=== PATIENT | female | born 1950 ===

== ENCOUNTER 2021-09-01 13:58 | Inpatient (IN) | payer OTHER ==
--- NOTE | 2021-09-01 19:21 | R.PREADM ---
PRE-ADMISSION SCREENING FORM SCREENING DATE AND TIME 09/01/2021 11:27 (CDT) ANTICIPATED REHAB ADMISSION DATE 09/03/2021 REFERRING FACILITY [facility] REFERRAL DATE AND TIME 09/01/2021 11:27 (CDT) REFERRAL ROOM# J530 ACUTE ADMIT DATE 08/26/2021 Previous Rehabilitation(s): No. ACUTE VARNISHER PLASTICOATER/DC CAGE CASHIER JUAN ATTENDING PHYSICIAN JAVIER BALL MD REFERRING PHYSICIAN JAVIER BALL MD REHAB FACILITY [facility] CLINICAL LIAISON Zion Aguilar PHYSICIAN REVIEWER Dr. Kirk Kinsey M.D. MR# [id number] NAME Kenya Peace ADDRESS [address] [facility] PHONE ( ZIP [address] DATE OF 1950 AGE 70 SSN# [id number] GENDER female MARITAL STATUS PREF. LANGUAGE (IF NON-SLOVENIAN) Latvian ADMIT FROM 02 - [facility] PRE-HOSPITAL LIVING SETTING 01 - Home (private home/apt. board/care, assisted living, fpc, transitional living) HOME TYPE AND DETAILS Type of home: single family house # of levels in the residence: 1 # of steps within the residence: 0 # of steps to enter the residence: 0 PRE-HOSPITAL LIVING WITH Alone FAMILY SUPPORT No PRIMARY FAMILY CONTACT NAME Kenya Peace PRIMARY FAMILY CONTACT PHONE PRIMARY FAMILY CONTACT RELATIONSHIP SELF PHONE PRIMARY FAMILY CONTACT ON ADM.? no IS PRIMARY FAMILY CONTACT AUTH. REP.? no 1ST EMERGENCY CONTACT Kenay Peace 1ST CONTACT PHONE 1ST CONTACT RELATIONSHIP SELF PHONE 1ST CONTACT ON ADM. no IS 1ST CONTACT AUTH. REP.? no PHONE 2ND CONTACT ON ADM.? no PATIENT EMPLOYMENT STATUS Retired (for age) PATIENT EMPLOYER No Employer PAYOR INFORMATION: 1ST PAYOR NAME [employer] 1ST PAYOR PHONE [phone] 1ST PAYOR INJURY/ILLNESS DUE TO ACCIDENT? No ANOTHER CONSTITUTION PARTY RESPONSIBLE? No PRIMARY REHAB/ACUTE DIAGNOSIS: Traumatic subdural hemorrhage with loss of consciousness of unspecified duration, initial encounter ( S06.5X9A) Acute traumatic subdural subarachnoid hemorrhage ONSET DATE 08/26/2021 REHAB IMPAIRMENT CATEGORY (BOB): 02 Traumatic brain injury (TBI) MEETS 60% rule PRIMARY DIAGNOSIS-RELATED SURGERIES: N/A COMORBID REHAB/ACUTE DIAGNOSES: - Non-Tiered Dysphagia, unspecified (R13.10) Fracture of unspecified part of right clavicle (S42.001) Disorientation, unspecified (R41.0) Essential (primary) hypertension (I10) Hyperlipidemia, unspecified (E78.5) Coronary Artery Disease Traumatic cerebral edema (S06.1) buckle sacral fx INTERVENTIONS: - WOUNDS Nursing will assess skin daily using assessment tool and will place on Skin Breakdown Precautions as Indicated per protocol - Hyperlipidemia Administer medications as per MD - Dysphagia Aggressive Speech Therapy to enhance to performance and prevent aspiration and reduce risk for pneumo luz elena - Weakness Daily therapy services to enhance patient's functional strength and abilities. - Hypertension Blood pressure will be regularly assessed and medications administered as per physician recommendatio ns. Appropriate BP range needs to be maintained to ensure optimal brain healing - CAD Vitals will be regularly monitored and symptoms managed. Administer Medication as indicated by physician. - R Clavicle Fx ROM as tolerated during therapy Sling as needed NWB R UE until otherwise instructed by orthopedic surgeon RISK FOR COMPLICATIONS: - SKIN BREAKDOWN Nursing will assess skin daily using assessment tool and will place on Skin Breakdown Precautions as Indicated per protocol - Neurologic Complications Regular Neuro checks Routine vital assessment Monitor for signs and symptoms of neurologic distress - Falls Educated pt on fall prevention strategies to reduce/eliminate fall risk Patient will be evaluated for Fall Precautions and will be placed on Fall Precautions as indicated pe r protocol. - DVT Administer anti-coagulants as indicated by physician and monitor for effectiveness. Mobility training and regular exercise - Aspiration Aggressive Speech therapy will be provided due to dysphagia. - Weakness Regular therapeutic activity and exercise Strengthening exercises to be performed - UTI Monitor for frequency, burning, discomfort, or incontinence Physician medical management as warranted SUMMARY OF ACUTE HOSPITALIZATION: Pt. is a 70 yo Right-handed female. On 08/26/2021 she was admitted to [facility] with diagnosis Traumatic subdural hemorrhage with loss of consciousness of unspecified duration, initial encounter (S06.5X9A). Her impairment category is Brain Dysfunction 02 - Closed Injury (05.16). Pre-morbidly, Pt. was independent/mod-I in Locomotion, Safety Awareness, Social Cognition, Transfers Control, and Balance; and she had good Sphincter Control, Self-Care, Communication, and Endurance. Currently, she has deficits of Locomotion, Safety Awareness, Social Cognition, Balance, Transfers Con trol, Sphincter Control, Self-Care, Endurance, and Communication. Pt. is now referred to [facility] for acute in-patient rehabilitation in order to maximize patient's functional independence in activities of daily living, strength, ROM, and mobi lity. Patient has realistic goal of being discharged at assistance level 5-sup to reside at Home with Pt s elf. PAST MEDICAL HISTORY Essential (primary) hypertension (I10) FALLS Hyperlipidemia, unspecified (E78.5) CAD UTI L subdural hematoma 04/28/2019 Traumatic cerebral edema (S06.1) Other spondylosis, lumbar region (M47.896) PAST SURGICAL HISTORY: Craniotomy for L subdural hematoma 04/28/2019 MEDICATION ALLERGIES: No Known Drug Allergies (NKDA) ENVIRONMENTAL ALLERGIES: - Substance Allergies None Known - Other Allergies None Known CODE STATUS: Full code BMI N/A DIET: - Diet Type Regular - Diet - Liquid Texture Regular - Tube Feed N/A SKIN DIAGRAM: on Head; extent - small; stage - NS(Not Stageable). Treatment - . REVIEW OF SYSTEMS: - Gen Alert and awake Lying in bed No apparent distress Oriented to: person, time, and place - Vital Signs Temperature: 98.3 F SBP/DBP: 141/83 Pulse: 96 Resp: 18 Vital signs stable, afebrile - CVS RRR VITAL SIGNS Temperature: 98.3 F SBP/DBP: 141/83 Pulse: 96 Resp: 18 Vital signs stable, afebrile MEDICATIONS/TREATMENT: Other- See attached MAR (Medication Administration Record). CURRENT SPHINCTER CONTROL: Pre-hospital bladder status: unspecified # of bladder accidents in the last 7 days prior to screenin Pre-hospital bowel status: unspecified # of bowel accidents in the last 7 days prior to screenin Last Bowel Movement Date: 09/01/2021 CURRENT LOCOMOTION STATUS: distance walked 100 feet rolling walker DETAILED CURRENT FUNCTIONAL STATUS: - Bladder accident frequency: 7-Ind - No accidents in the past 7 days - Bowel accident frequency: 7-Ind - No accidents in the past 7 days - Walking score based on distance walked: 0(N/A) score based on distance walked: 2(50-149ft) - Wheelchair score based on distance traveled: 0(N/A) QI SCORES: - Self-Care A. Eating 03-Partial/moderate assistance B. Oral hygiene 02-Substantial/maximal assistance C. Toileting hygiene 02-Substantial/maximal assistance E. Shower/bathe self 02-Substantial/maximal assistance F. Upper body dressing 03-Partial/moderate assistance G. Lower body dressing 02-Substantial/maximal assistance H. Putting on/taking off footwear 88-Not attempted due to medical condition or safety concerns - Mobility A. Roll left and right 03-Partial/moderate assistance B. Sit to lying 03-Partial/moderate assistance C. Lying to sitting on side of bed 03-Partial/moderate assistance D. Sit to stand 02-Substantial/maximal assistance E. Chair/[id number] transfer 03-Partial/moderate assistance F. Toilet transfer 02-Substantial/maximal assistance G. Car transfer 88-Not attempted due to medical condition or safety concerns I. Walk 10 feet 03-Partial/moderate assistance J. Walk 50 feet with two turns 03-Partial/moderate assistance K. Walk 150 feet 88-Not attempted due to medical condition or safety concerns L. Walking 10 feet on uneven surfaces 88-Not attempted due to medical condition or safety concerns M. 1 step (curb) 88-Not attempted due to medical condition or safety concerns N. 4 steps 88-Not attempted due to medical condition or safety concerns O. 12 steps 88-Not attempted due to medical condition or safety concerns P. Picking up object 88-Not attempted due to medical condition or safety concerns R. Wheel 50 feet with two turns 88-Not attempted due to medical condition or safety concerns S. Wheel 150 feet 88-Not attempted due to medical condition or safety concerns - Bladder and Bowel Bladder continence Bowel continence - Endurance Fair - Balance Poor - Safety Awareness Fair CURRENT FUNC. DEFICITS: Self-Care, Mobility, Endurance, Balance, and Safety Awareness CURRENT / PREVIOUS ASSISTIVE DEVICES: Rolling Walker HISTORY OF FALLS. HAS THE PATIENT HAD TWO OR MORE FALLS IN THE PAST YEAR OR ANY FALL WITH INJURY IN T HE PAST YEAR?: Yes PRIOR SURGERY. DID THE PATIENT HAVE MAJOR SURGERY DURING THE 100 DAYS PRIOR TO ADMISSION?: No THERAPY NOTES FROM ACUTE CARE: Attached. SPECIAL NEEDS: - Safety Concerns Aspiration precautions needed due to Dysphagia Fall precautions needed due to Poor balance Skin breakdown precautions needed due to skin breakdown risk PRECAUTIONS: - Aspiration Precaution 1 to 1 supervision with all po intake All meals in the dysphagia dining room No straws Seated at 90 degrees while eating and 30 minutes after meals - Fall Precaution 1 to 1 supervision Bed alarm TABS alarm Wheel chair alarm - R Clavicle NWB R UE ROM as tolerated R UE PATIENT NEEDS ACTIVE AND ONGOING THERAPEUTIC INTERVENTION OF MULTIPLE THERAPY DISCIPLINES, INCLUDING: - Dietary and Nutrition Adequate Nutrition. Nutritional Education. Nutritional Supplements. Evaluate and Treat. - Occupational Therapy Cognitive Retraining. Patient needs Occupational Therapy for a daily minimum of 1.5 hours at least 5 out of 7 days, to improve Activities of Daily Living, including: Eating, Grooming, Bathing, Dressing, Toileting, Toilet Transfers, Community Reintegration, Higher functional activities, Adaptive Equipme nt, Splinting, Household Tasks, and Other activities as determined. Visual Perceptual Training. Evalu ate and Treat. Patient/Family Education. ADL Training. Safety Awareness. Eating. Transfer Training. U E Strengthening. - Speech Therapy Cognitive Training. Expressive Language Skills. Memory Strategies. Patient needs Speech Therapy for a daily minimum of 1.5 hours at least 5 out of 7 days, to improve: Swallowing, Cognition, Language Ski lls, and Compensatory Strategies. Receptive Language Skills. Speech Intelligibility Training. Evaluat e and Treat. - Physical Therapy Patient needs Physical Therapy for a daily minimum of 1.5 hours at least 5 out of 7 days, to improve: Mobility, Strengthening, Transfers, Stretching, ROM, Endurance, Ability to manage stairs, Gait, and Balance. Balance Training. Gait Training. Safety Awareness. Transfer Training. Mobility Training. Pat ient/Family Education. LE Strengthening. PATIENT NEEDS CLOSE MEDICAL SUPERVISION BY A REHABILITATION PHYSICIAN FOR: Coordination of Treatment Team Medical and Co-Morbidity Management Wound Care Pain Management DVT Management Bowel and Bladder Management PATIENT REQUIRES 24X7 REHAB NURSING FOR MEDICAL AND FUNCTIONAL MGT. OF THE FOLLOWING DEFICITS: Disease Management Medication Management Patient requires 24x7 Rehabilitation Nursing for: Pain Issues, Identifying and preventing risk factor s, Monitoring and reporting current medical conditions, Assisting with ambulation and transfer, Jenny ting with all ADL-s, Teaching patients about disease process and medications, Family teaching, Provid ing safe environment, Bowel and Bladder Issues, Skin Integrity, and Medication Management Patient/Family Education Providing Safe Environment Skin Integrity Swallowing PATIENT REQUIRES INTENSIVE, COORDINATED INTERDISCIPLINARY APPROACH TO REHAB: Arranging Home Equipment/Services Discharge Planning Family Intervention/Training Patient needs Dietary and Nutrition Services for: Adequate Nutrition, Nutritional Supplements, and Nu tritional Education Patient needs Clinical Editor and/or Case Management for: Discharge Planning, Arranging Home Equipmen t or Services, and Family Interventions Clinical Editor/Case Management PATIENT REHAB POTENTIAL: Cookie Peace is able and expected to receive 3 hours of individualized therapy daily on at least 5 of renetta ry 7 days Cookie Peace's prognosis for significant practical improvement within a reasonable period of time appears Good Expected level of measurable improvement will be of a practical value to Cookie Peace's functional capaci ty or adaptations to impairments Has a viable Discharge Plan Medically appropriate; condition is sufficiently stable to participate in intensive rehab program DISCHARGE PLAN: - Estimated Length of Stay (days) 17. - Consensus on plan Discharge plan has been discussed with primary caregiver. Patient/Family is in agreement with the regina n. Primary caregiver is in agreement with the plan. - Patient/Family Goals Return home with assistance. - Planned Living Setting Upon Discharge Home, to live alone. Transitional Living. Primary caregiver: Pt self. RECOMMENDED CARE LEVEL: IRF RECOMMENDATION DETAILS: Recommended Admission to Comprehensive Rehabilitation Program to Increase Functional [place] SCREENER'S COMPLETENESS CONFIRMATION: - Screening Confirmation The patient data collection on this preadmission screening form is finished PHYSICIANS REVIEW AND ADMISSION DETERMINATION Admit - Based on my review of the Pre-Admission Screening results, in my medical judgment and experie nce, I concur with the findings and recommend admission to [facility], as this patient requires an IRF level of care. SIGNATURE PANEL: Party Planner - [electronically] signed by Zion Aguilar on 09/01/2021 at 16:18 (CDT) Party Planner - [electronically] signed by Pee Burgess PT on 09/01/2021 at 17:56 (CDT) Physician Reviewer - [electronically] signed by Dr. Kirk Kinsey M.D. on 09/01/2021 at 19:19 (CDT )
--- OUTSIDE RECORDS SUMMARY | 2021-09-01 22:49 | XMS REPORT | Continuity of Care Document ---
:1950 Author Organization [facility] t Address [address] [place] [address] Support Name Relationship Address Phone ANALIGladysJUANA [place] [address] [facility] [place] [address] ANALIGladysJUANA OR Unavailable Ibarra, Sandrita Sibling Unavailable IBARRA, BRITTNY Unavailable [address] [phone] [place] [address] CHECO RODRIGUEZ Unavailable [address] [phone] [place] [address] IBARRA, BRITTNY Unavailable [address] [phone] [place] [address] MD KISHORE MULLIGAN Attending Provider [address] [facility] [phone] [place] [address] MD LIANA DORSEY Primary Care Physician [address] [place] [address] SPRING Family Member [address] [place] [address] MD BOLIVAR E Emergency Provider [address] [facility] [address] [place] [address] MD OPAL S Emergency Provider [address] [place] [address] MD RANJIT Emergency Provider Unavailable Unavailable MD BLAIRE L Primary Care Physician [address] [place] [address] MD EMY Emergency Provider [address] AMANU[address] [email or web address] [address] Care Team Providers Name Role Phone Sophie Echols Attending Clinician Unavailable Aarti Attending Clinician Unavailable SHIRIN BALL Attending Clinician Unavailable GC_WPSA_Awan_R Attending Clinician Unavailable Zhao Broussard Attending Clinician [phone] REGINO Attending Clinician Unavailable CONG Attending Clinician Unavailable Cong DELGADILLO Attending Clinician Draw, Lab Attending Clinician Unavailable NERET Attending Clinician Unavailable Clinic, Neurology Continuity Attending Clinician Unavailabl e Neurology Attending Clinician Unavailable Doctor Unassigned, Name Attending Clinician Unavailable GONG Attending Clinician Unavailable UNDEFINED Admitting Clinician Unavailable LINA REYES Admitting Clinician Unavailable GC_WPSA_Awan_R Admitting Clinician Unavailable TONI_SHAHID Admitting Clinician Unavailable NERET Admitting Clinician Unavailable Payers Payer Name Policy Type Policy Number Effective Date Expiration Date S kaushik [employer]ETNA MEDICARE PPO [id number] 2021 00:00:00 AETNA (MEDICARE [id number] 2019 REPLACEMENT PPO) 00:00:00 [place] B-[place]: [id number] 2016 [employer]its 00:00:00 AETNA MEDICARE ADV [id number] 2019 00:00:00 AETNA [id number] 2019 00:00:00 Problems Condition Condition Condition Status Onset Resolution Last Treating Co mments Source Name Details Category Date Date Treatment Clinician Date Hyperlipid Hyperlipid Problem Active M [facility] Generalize Generalize Problem Active M [facility] d anxiety d Anxiety da disorder Disorder Medica l Group Depressive Depressive Problem Active M [facility] disorder Disorder [facility] Insomnia Insomnia Problem Active [facility] Essential Essential Problem Active [facility] hypertensi Hypertensi da on on [facility] Disorder Disorder Problem Active [place] of aorta of Aorta [facility] Ecchymosis Ecchymosis Problem Active [facility] Abnormal Abnormal Problem Active [facility] renal Renal da function Function Medica l Group Urinary Urinary Problem Active [place] tract Tract da infectious Infectious Me dical disease Disease Group Urticaria Urticaria Problem Active [facility] Shoulder Shoulder Problem Active [facility] joint pain Joint Pain [facility] Spinal Spinal Problem Active [place] stenosis Stenosis da of lumbar of Lumbar Medi [facility] Neurogenic Neurogenic Problem Active M tyler claudambrosio Claudambrosio da on on Medical Group Osteopenia Osteopenia Problem Active M luanngor [facility] Complainin Complainin Problem Active M tyler g of g of da backache Backache Medica l Group Hyperglyce Hyperglyce Problem Active M dougr richard ramos [facility] Full Full Problem Active [place] thickness Thickness da rotator Rotator Medical cuff tear Cuff Tear Grou p Low back Low Back Problem Active [place] strain Strain [facility] Allergies, Adverse Reactions, Alerts Allergy Allergy Status Severity Reaction(s) Onset Inactive Treating Comm ents Source Name Type Date Date Clinician nut - FA Active U [facility] unspecif 3- [place] ied 00:00: [address] nut - FA Active U THROAT [facility] unspecif ITCHING 06-16 [place] ied 00:00: [address] No Known DA Active U [facility] Drug - [place] Allergie 00:00: [address] No Known DA Active U [facility] Drug 04-18 [place] Allergie 00:00: [address] NO KNOWN Drug Active Univers ALLERGIE Class ity of S [facility] Social History Social Habit Start Date Stop Date Quantity Comments Source [facility] to [facility]2 Not sure [facility] Smoking Status Start Date Stop Date Source Unknown if ever smoked Universit y [facility] Heavy Tobacco Smoker [place] [facility] Group Medications Ordered Filled Start Stop Current Ordering Indication Dosage Frequency Signature Comments Components Source Medication Medication Date Date Medication? Clinician (SIG) Name Name potassium Yes potassium Uni vers chloride 20 -04 chloride ity of mEq tablet 18:30[place] 20 [place] tablet,ext Medical ended Branch release TAKE ONE TABLET BY MOUTH EVERY OTHER DAY DIRECTED furosemide Yes 20mg 20 mg Univer s 20 mg 03-28 daily. ity of tablet 18:30: [address] hydroCHLORO Yes hydrochlor Univers thiazide 03-28 othiazide ity of 12.5 mg 18:30: 12.5 mg [place] tablet 28 tablet Medical Branch doxepin 10 Yes 10mg Take 10 mg U nivers mg capsule 04 by mouth ity o f 18:30: at [place] [address] bedtime. Medical Branch clopidogreL Yes Take by Un anh 75 mg 1-04 mouth ity of tablet 18:30: daily. [address] Branch losartan 50 Yes 50mg Take 50 mg Univers mg tablet 1-04 by mouth ity of 18:30: daily. [address] potassium Yes potassium Uni vers chloride 20 1-04 chloride ity of mEq tablet 18:30: [place] 20 [place] tablet,ext Medical ended Branch release TAKE ONE TABLET BY MOUTH EVERY OTHER DAY DIRECTED furosemide Yes 20mg 20 mg Univer s 20 mg 1-04 daily. ity of tablet 18:30: [address] hydroCHLORO Yes hydrochlor Univers thiazide 1-04 othiazide ity of 12.5 mg 18:30: 12.5 mg [place] tablet 28 tablet Medical Branch doxepin 10 Yes 10mg Take 10 mg U nivers mg capsule 1-04 by mouth ity o f 18:30: at [place] [address] bedtime. Medical Branch clopidogreL Yes Take by Un anh 75 mg 1-04 mouth ity of tablet 18:30: daily. [address] losartan 50 Yes 50mg Take 50 mg Univers mg tablet 1-04 by mouth ity of 18:30: daily. [address] potassium Yes potassium Uni vers chloride 20 1-04 chloride ity of mEq tablet 18:30: [place] 20 [place] tablet,ext Medical ended Branch release TAKE ONE TABLET BY MOUTH EVERY OTHER DAY DIRECTED furosemide 0 Yes 20mg 20 mg Univer s 20 mg 1-04 daily. ity of tablet 18:30: [address] hydroCHLORO Yes hydrochlor Univers thiazide 1-04 othiazide ity of 12.5 mg 18:30: 12.5 mg [place] tablet 28 tablet Medical Branch doxepin 10 Yes 10mg Take 10 mg U nivers mg capsule 1-04 by mouth ity o f 18:30: at [place] [address] bedtime. Medical Branch clopidogreL Yes Take by Un anh 75 mg 1-04 mouth ity of tablet 18:30: daily. [address] losartan 50 Yes 50mg Take 50 mg Univers mg tablet 1-04 by mouth ity of 18:30: daily. [address] Branch potassium Yes potassium Uni vers chloride 20 1-04 chloride ity of mEq tablet 18:30: [place] 20 [place]Eq [place] tablet,ext Medical ended Branch release TAKE ONE TABLET BY MOUTH EVERY OTHER DAY DIRECTED furosemide Yes 20mg 20 mg Univer s 20 mg 1-04 daily. ity of tablet 18:30: [address] Branch hydroCHLORO Yes hydrochlor Univers thiazide 1-04 othiazide ity of 12.5 mg 18:30: 12.5 mg [place] tablet 28 tablet Medical Branch doxepin 10 Yes 10mg Take 10 mg U nivers mg capsule 1-04 by mouth ity o f 18:30: at [place] [address] bedtime. Medical Branch clopidogreL Yes Take by Un anh 75 mg 1-04 mouth ity of tablet 18:30: daily. [address] losartan 50 Yes 50mg Take 50 mg Univers mg tablet 1-04 by mouth ity of 18:30: daily. [address] potassium Yes potassium Uni vers chloride 20 1-04 chloride ity of mEq tablet 18:30: [place] 20 [place]Eq [place] tablet,ext Medical ended Branch release TAKE ONE TABLET BY MOUTH EVERY OTHER DAY DIRECTED furosemide Yes 20mg 20 mg Univer s 20 mg 1-04 daily. ity of tablet 18:30: [address] hydroCHLORO Yes hydrochlor Univers thiazide 1-04 othiazide ity of 12.5 mg 18:30: 12.5 mg [place] tablet 28 tablet Medical Branch doxepin 10 Yes 10mg Take 10 mg U nivers mg capsule 1-04 by mouth ity o f 18:30: at [place] [address] bedtime. Medical Branch clopidogreL Yes Take by Un anh 75 mg 1-04 mouth ity of tablet 18:30: daily. [address] losartan 50 Yes 50mg Take 50 mg Univers mg tablet 1-04 by mouth ity of 18:30: daily. [address] SERTraline 2019-03 Yes 50mg Take 50 mg U nivers 50 mg 2-16 by mouth ity of tablet 00:00: as needed. [address] SERTraline 2019-03 Yes 50mg Take 50 mg U nivers 50 mg 2-16 by mouth ity of tablet 00:00: as needed. [address] SERTraline 2019-03 Yes 50mg Take 50 mg U nivers 50 mg 2-16 by mouth ity of tablet 00:00: as needed. [address] SERTraline 2019-03 Yes 50mg Take 50 mg U nivers 50 mg 2-16 by mouth ity of tablet 00:00: as needed. [address] SERTraline 2019-03 Yes 50mg Take 50 mg U nivers 50 mg 2-16 by mouth ity of tablet 00:00: as needed. [address] gabapentin 2019-03 Yes TAKE ONE Uni vers 300 mg 0-30 (1) ity of capsule 00:00: [place] BY MOUTH Medical TWICE A Branch DAY. gabapentin 2019-03 Yes TAKE ONE Uni vers 300 mg 0-30 (1) ity of capsule 00:00: [place] 00 BY MOUTH Medical TWICE A Branch DAY. gabapentin 2019-03 Yes TAKE ONE Uni vers 300 mg 0-30 (1) ity of capsule 00:00: [place] 00 BY MOUTH Medical TWICE A Branch DAY. gabapentin 2019-03 Yes TAKE ONE Uni vers 300 mg 0-30 (1) ity of capsule 00:00: [place] 00 BY [place]OUTH Medical TWICE A Branch DAY. gabapentin 2019-03 Yes TAKE ONE Uni vers 300 mg 0-30 (1) ity of capsule 00:00: [place] 00 BY MOUTH Medical TWICE A Branch DAY. alendronate alendronate No alendronat [place] 70 mg 70 mg e 70 mg da tablet tablet tablet Medical Group amitriptyli amitriptyli No amitriptyl [place] ne 25 mg ne 25 mg ine 25 mg da tablet tablet tablet Medical Group carbamazepi carbamazepi No carbamazep [place] ne ER 100 ne ER 100 ine ER 100 da mg mg mg Medical tablet,exte tablet,exte tablet,ext Group nded nded ended release,12 release,12 release,12 hr hr hr clopidogrel clopidogrel No clopidogre [place] 75 mg 75 mg l 75 mg da tablet tablet tablet Medical Group hydrochloro hydrochloro No hydrochlor [place] thiazide thiazide othiazide da 12.5 mg 12.5 mg 12.5 mg Medica l tablet tablet tablet Group losartan 50 losartan 50 No losartan [place] mg tablet mg tablet 50 mg da Take 1 Take 1 tablet Medical tablet tablet Take 1 Group every day every day tablet by oral by oral every day route. route. by oral route. metoprolol metoprolol No metoprolol [place] succinate succinate succinate da ER 100 mg ER 100 mg ER 100 mg Medical tablet,exte tablet,exte tablet,ext Group nded nded ended release 24 release 24 release 24 hr hr hr potassium potassium No potassium [place] chloride ER chloride ER chloride da 20 mEq 20 mEq ER 20 mEq Medica l tablet,exte tablet,exte tablet,ext Group nded nded ended release release release pregabalin pregabalin No pregabalin [place] 50 mg 50 mg 50 mg da capsule capsule capsule Medica l Group tramadol 50 tramadol 50 No tramadol [place] mg tablet mg tablet 50 mg da tablet Medical Group valproic valproic No valproic [place] acid 250 mg acid 250 mg acid 250 da capsule capsule mg capsule Med ical Group zolpidem 5 zolpidem 5 No zolpidem 5 [place] mg tablet mg tablet mg tablet da Medical Group Vital Signs Vital Name Observation Time Observation Value Comments Source Systolic blood 2020-03-28 18:23:00 129 mm[Hg] Univer [facility] Diastolic blood 2020-03-28 18:23:00 79 mm[Hg] Unive [facility] Heart rate 2020-03-28 18:23:00 75 /min [facility] Body temperature 2020-03-28 18:23:00 36.39 [facility] Body height 2020-03-28 18:23:00 162.6 cm [facility] Body weight 2020-03-28 18:23:00 64.864 kg [facility] BMI 2020-03-28 18:23:00 24.55 kg/m2 [facility] Oxygen saturation in 2020-03-28 18:23:00 97 /min [facility] blood by [facility] Pulse oximetry Branch Systolic blood 2020-03-28 18:23:00 129 mm[Hg] Univer sity of pressure [facility] Diastolic blood 2020-03-28 18:23:00 79 mm[Hg] Unive rsity of pressure [facility] Heart rate 2020-03-28 18:23:00 75 /min [facility] Body temperature 2020-03-28 18:23:00 36.39 [facility] Univ ersity of [facility] Body height 2020-03-28 18:23:00 162.6 cm [facility] Body weight 2020-03-28 18:23:00 64.864 kg [facility] BMI 2020-03-28 18:23:00 24.55 kg/m2 [facility] Oxygen saturation in 2020-03-28 18:23:00 97 /min [facility] blood by [facility] Pulse oximetry Branch BP Diastolic 2019-05-28 00:00:00 85 mm[Hg] [facility] Height 2019-05-28 00:00:00 64 [in_i] [facility] BMI (Body Mass 2019-05-28 00:00:00 25.9 kg/m2 [facility]) Group BP Systolic 2019-05-28 00:00:00 113 mm[Hg] [facility] Body Weight 2019-05-28 00:00:00 151 [lb_av] [facility] BP Diastolic 2019-04-23 00:00:00 87 mm[Hg] [facility] BP Systolic 2019-04-23 00:00:00 111 mm[Hg] [facility] Body Weight 2019-04-23 00:00:00 150 [lb_av] [facility] Procedures Procedure Date / Time Performed Performing Clinician [facility] e [id number] 2020-06-17 00:00:00 ERIC [facility] [id number] 2020-06-17 00:00[id number] 2020-06-17 00:00[facility]00 [facility]- 2020-01-18 05:01:00 Doctor Unassigned, No Univer sity [facility] REQUEST/RESPONSE Name Medical Branch REFERRAL- 2020-01-05 05:01:00 Doctor Unassigned, No [facility] [place] REQUEST/RESPONSE Name Medical Branch Back Surgery 2016-01-26 00:00:00 [facility] Back [facility] 2015-09-20 00:00:00 [facility] Encounters Start End Encounter Admission Attending Care Care Encounter Source Date/Time Date/Time Type Type Clinicians Facility Department ID 2021-08-28 Outpatient [facility] [id number] [place] 14:19:12 [id number] [facility] 2020-06-17 Inpatient McBillien, HCAWU H[facility]WU [id number] [facility] 07:30:00 Donaldo [id number] [facility] 2020-04-18 Inpatient Aarti, Gillian HCAWU SUGL [id number] [facility] 13:00:00 [id number] [facility] 2021-08-26 2021-09-01 Inpatient Celina BALL, [facility] [id number] [facility] 17:56:00 21:10:00 JAVIER 2021-08-17 2021-08-17 Outpatient GC_WPSA_Awa PRIV PRIV [id number] [facility] 12:51:00 12:51:00 n_R [id number] Medica l 2021-07-20 2021-07-20 Outpatient GC_WPSA_Awa PRIV PRIV [id number] [facility] 02:21:00 02:21:00 n_R [id number] Medica l 2021-07-06 2021-07-06 Outpatient GC_WPSA_Awa PRIV PRIV [id number] [facility] 05:02:00 05:02:00 n_R [id number] Medica l 2021-07-06 2021-07-06 Outpatient Aarti Gillian PRIV PRIV [id number] 00:00:00 00:00:00 Zhao [id number] 2021-06-11 2021-06-11 Outpatient GC_WPSA_Awa PRIV PRIV [id number] [facility] 12:55:00 12:55:00 n_R [id number] Medica l 2021-05-14 2021-05-14 Outpatient GC_WPSA_Awa PRIV PRIV [id number] [facility] 01:08:00 01:08:00 n_R [id number] Medica l 2021-04-19 2021-04-19 Outpatient AMBREEN_ZIA [facility] [id number] [place] 05:24:00 05:24:00 ELMERKimberly 0126 [facility] 2021-04-16 2021-04-16 Outpatient GC_WPSA_Awa PRIV PRIV [id number] [facility] 12:54:00 12:54:00 n_R [id number] Medica l 2021-04-05 2021-04-05 Outpatient GC_WPSA_Awa PRIV PRIV [id number] [facility] 04:35:00 04:35:00 n_R [id number] Medica l 2021-04-05 2021-04-05 Outpatient Aarti, Gillian PRIV PRIV [id number] 00:00:00 00:00:00 Zhao [id number] 2021-03-15 2021-03-15 Outpatient GC_WPSA_Awa PRIV PRIV [id number] [facility] 01:28:00 01:28:00 n_R [id number] Medica l 2021-02-20 2021-02-20 Outpatient GC_WPSA_Awa PRIV PRIV [id number] [facility] 03:41:00 03:41:00 n_R [id number] Medica l 2020-08-05 2020-08-05 Outpatient GC_WPSA_Awa PRIV PRIV [id number] [facility] 01:01:00 01:01:00 n_R [id number] Medica l 2020-08-03 2020-08-03 Outpatient GC_WPSA_Awa PRIV PRIV [id number] [facility] 02:31:00 02:31:00 n_R [id number] Medica l 2020-06-27 2020-06-27 Outpatient Azalea GONG [facility] [id number] Univers 10:00:00 10:00:00 MEGHAN [id number] ity o f [facility] 2020-06-27 2020-06-27 Outpatient Azalea GONG [facility] [id number] Univers 10:00:00 10:00:00 MEGHAN shepherd [facility] 2020-06-16 2020-06-16 Outpatient MARCELA Echols [facility] [id number] [facility] 16:00:00 16:00:00 Donaldo [id number] [facility] 2020-04-14 2020-04-14 Outpatient GONG, [facility] [id number] Univers 16:00:00 16:00:00 [id number] adri she[facility] 2020-04-14 2020-04-14 Outpatient R GONG, [facility] [id number] Univers 00:00:00 00:00:00 RADHAMN adri shepherd [facility] 2020-04-14 2020-04-14 Telephone Gong, [facility] [id number] Univers 00:00:00 00:00:00 [facility] Health [id number] i ty [place] Gerardo [id number] [address] Office [facility] 2020-04-14 2020-04-14 Telephone Gong, [facility] [id number] Univers 00:00:00 00:00:00 [facility] Health [id number] i [place] [id number] [address] Office Building 2020-04-14 2020-04-14 Telephone Gong, [facility] [id number] 00:00:00 00:00:00 [facility] Health [id number] Clear 4.2.7.2.686 [place] [id number] [place] [address] Office [facility] 2020-04-14 2020-04-14 Telephone Gong, [facility] [id number] 2022 00:00:00 00:00:00 [facility] Health [id number] Clear 4.2.7.2.686 [place] [id number] [place] [address] Office [facility] 2020-03-28 2020-03-28 Sports Announcer Merrick, [facility] [id number] 13:17:39 13:32:39 Visit Clc-Bls Lab [facility] [id number] Clear 4.2.7.2.686 [place] [id number] [place] [address] Office Building 2020-03-28 2020-03-28 Sports Announcer Draw, Clc[facility] Lab [facility] [id number] Univers 13:17:39 13:32:39 Visit Cong [facility] [id number] ity [place] [id number] [address] Office Building 2020-03-28 2020-03-28 Office Gong, [facility] [id number] 12:13:34 13:13:34 Visit [facility] [id number] Clear 4.2.7.2.686 Ger[place] [id number] [place] [address] Office Building 2020-03-28 2020-03-28 Office Gong, [facility] [id number] Univers 12:13:34 13:13:34 Visit [facility] [id number] i ty [place] [id number] [place] [address] [place] Office Building 2020-03-28 2020-03-28 Outpatient R CONG, [facility] [id number] Univers 12:00:00 12:00:00 MEGHAN [id number] ity o f [facility] 2020-03-28 2020-03-28 Outpatient R CONG, [facility] [id number] Univers 12:00:00 12:00:00 MEGHAN barnetty o f [facility] 2020-02-10 2020-02-10 Outpatient [facility] [id number] [place] 02:49:00 02:49:00 0426 [facility] 2020-02-10 2020-02-10 [facility] [id number] [place] 02:49:00 02:49:00 [id number] Medical Group 2020-02-03 2020-02-03 [facility], [facility] [id number] Univers 00:00:00 00:00:00 (Out) Neurology Y HEALTH 350.1.13.10 ity of Continuity CLINICS 4.2.7.2.686 [place] [id number] [address] 2020-01-20 2020-01-20 Letter Neurology UNIVERS[facility] [id number] [id number] Univers 00:00:00 00:00:00 (Out) Y HEALTH 350.1.13.10 i ty of CLINICS [place].2.[place] [id number] [address] 2020-01-18 2020-01-18 Orders Doctor SATISH [id number] Univers 00:00:00 00:00:00 Only Unassigned, NADER 350.1.13.10 ity of [facility] 4.2.7.2.686 [place] [id number] [address] 2020-01-05 2020-01-05 Orders Doctor SATISH [id number] Univers 00:00:00 00:00:00 Only Unassigned, NADER 350.1.13.10 ity of [place] [facility] 4.2.7.2.686 [place] [id number] [address] 2019-12-23 2019-12-23 [facility] [id number] Univers 00:00:00 00:00:00 [facility] Health 350.1.13.10 i ty [place] [id number] [address] Office Building 2019-12-16 2019-12-16 Outpatient R CONG [facility] [id number] Univers 11:00:00 11:00:00 NOEMI rush o f [facility] 2019-06-01 2019-06-01 Outpatient [facility] [id number] [place] 04:36:00 04:36:00 [id number] Medical [facility] 2019-05-28 2019-05-28 Outpatient [facility] [id number] [place] 03:09:00 03:09:00 0305 [facility] 2019-05-28 2019-05-28 [facility] [place] - [id number] M atagor 00:00:00 00:00:00 Discovery moni Mulligan MD: [address] [place] [address] [address], [place] [address] , Ph. 2019-04-27 2019-04-27 Emergency [id number] 22:01:00 22:01:00 2019-04-24 2019-04-24 Outpatient [facility] [id number] [place] 04:13:00 04:13:00 0131 [facility] 2019-04-23 2019-04-23 Outpatient [facility] [id number] [place] 03:46:00 03:46:00 0130 [facility] 2019-04-23 2019-04-23 [facility] [place] - [id number] M atagor 00:00:00 00:00:00 Discovery moni Mulligan MD: [address] [place] [address] [address], [place] [address] , Ph. 2019-04-14 2019-04-14 Emergency E [facility] [id number] [facility] 15:03:00 15:03:00 Results Test Description Test Time Test Comments Results Result Comments Source METANEPHRINES, FREE, PLASMA 2020-07-01 07:35:00 Test Item Value Reference Range Interpretation Comme nts METANEPHRINES, FREE, PLASMA 41.1 pg/mL 0.0-88.0 Performed At: [facility] (test code = METAF) [facility] [address] [place], [place] [id number] Avalos MD Ph:[phone] NORMETANEPHRINE = 80.8 pg/ml (NORMAL 0.0-191 .8)Previously reported result : 41.1 pg/mLEdited by: NANCIE o n 07/01/20:727791 0735: METANEPHR, FREE previously reported as: 41.1 pg/mL Performed At: [facility] [place] [address] [place], [place] [id number] Delon Avalos MD Ph:[phone] UNABLE TO DRAW BLOOD, REASON: CBNNOTIFIED PATIENT CARE STAFF: JESSICA 06/20/20 AT 1726 BY Lucia Burciaga METANEPHRINES [id number] 07:33:00 Test Item Value Reference Range Interpretation Comments UR METANEPHRINES 24HR (test code 115 mcg/24h 58-276 = MET24T) UR METANEPHRINES (TOTAL) (test 82 ug/L Undefined code = METTU) NORMETANEPHRINE (test code = 121 ug/L NORMETT) NORMETANEPHRINE 24 HR (test code 169 mcg/24h 156-729 N = NORMETUR) UR METANEPHRINES [id number] 07:29:00 Test Item Value Reference Range Interpretation Comments UR METANEPHRINES 24HR (test code = mcg/24h 58-276 MET24T) UR METANEPHRINES (TOTAL) (test code 82 ug/L Undefined = METTU) NORMETANEPHRINE (test code = ug/L NORMETT) NORMETANEPHRINE 24 HR (test code = mcg/24h 156-729 NORMETUR) METANEPHRINES, FREE, [id number] 07:29:00 Test Item Value Reference Range Interpretation Comments METANEPHRINES, FREE, 41.1 pg/mL 0.0-88.0 Perform ed At: BN PLASMA (test code = [facility] [address]6234 METAF) [place], [place] [id number] belen Avalos MD Ph:[phone] UNABLE TO DRAW BLOOD, REASON: CBNNOTIFIED PATIENT CARE STAFF: JESSICA 06/20/20 AT 1726 BY Lucia Burciaga CATECHOLAMINE [id number] 07:16:00 Test Item Value Reference Range Interpretation Comments UR EPINEPHRINE (test 2 ug/L Undefined code = EPINU) UR EPINEPHRINE 24H (test 3 ug/24 hr 0-20 code = EPINU24) UR NOREPINEPHRINE (test 16 ug/L Undefined code = NOREPU) UR TOTAL 22 ug/24 hr 0-135 EPI/NOREPINEPHRIN (test code = EPINOREPIU) UR DOPAMINE (test code = 61 ug/L Undefined DOPAU) UR DOPAMINE 24H (test 85 ug/24 hr 0-510 Perfor med At: BN code = DOPAU24) [facility] [address] [place], [place] [id number] ra Robbie DELGADILLO Ph:[phone] [id number] 12:54:00 Test Item Value Reference Range Interpretation Comments LUNG (test code = LUNG) --RUN DATE: 06/23/20 [facility] [place] PAGE 1 RUN TIME: 1255 Specimen Inquiry RUN USER: INTERFACE --PATIENT: LUDIN CHIN LOC: TOBI U #: [id number] AGE/SX: 69/F ROOM: [facility] RE06/17/20[facility] DR: Donaldo Echols MD : 52 BED: A DIS: 06/22/20 STATUS: DIS IN TLOC: -- SPEC #: [id number]:[id number] RECD: 06/17/20 STATUS: YUNIOR BARR #: [id number] TITO: 06/17/[address]: Donaldo Echols MD ENTERED: 06/17/20 SP TYPE: LUNG OTHR DR: No Primary or Family Physician Self ReferredORDERED: SURG PATH LVL 5/2, CONSULTATION-IN, SURG PATH LVL 4/2, TOUCH PREP INIT, IHC 1st, IHC ADD SHIRIN/3 CODES: E37886 - LIGAMENT, NOS [id number] [id number] - BRONCHUS OF LEF BIOPSY, NOS [id number] - BRONCHUS OF LEF EXCISION, NOS [id number] - LUNG, NOS [id number] - LYMPH NODE, NOS [id number] - LYMPH NODE, NOS EXCISION, NOS [id number] [id number] - BODY TISSUE, NO ATELECTASIS, NO [id number] - BODY TISSUE, NO CONGESTION, NOS [id number] - CELL, NOS COPIES TO: No Primary or Family Physician [place] [address] [address] ICD CODES: 518.0 - PROCEDURES: SURG PATH LVL 5 (06/17/20) CONSULTATION-IN (Incomplete) SURG PATH LVL 4 (06/17/20) TOUCH PREP INIT (06/17/20) IHC 1st (06/23/20-1232) IHC ADD SHIRIN (06/23/20) TISSUES: A. LUNG, NOS - LT LOWER LOBE LUNG #1 B. LUNG, NOS - LT LOWER LOBE LUNG #2 C. LYMPH NODE, NOS - LN LT INFERIOR PULMONARY LIGAMENT D. LYMPH NODE, NOS - LN LT HILAR CONTINUED ON NEXT PAGE --RUN DATE: 06/23/20 [place] - LAB PAGE 2 RUN TIME: 1255 Specimen Inquiry RUN USER: INTERFACE --SPEC #: [id number]:[id number] PATIENT: LUDIN CHIN #[id number] (Continued) CONSULTATION Intradepartmental consultation: Dr. Carpenter. CPT CODES CPT CODE(S): 52484O9 , 92988H3 , 57701 , 07839 , , , FINAL DIAGNOSIS A. Lung, left lower lobe, segmental resection #1: BENIGN LUNG TISSUE WITH CONGESTION, ATELECTASIS, AND RARE FAT EMBOLI B. Lung, left lower lobe, segmental resection #2: MODERATELY DIFFERENTIATED ADENOCARCINOMA, 1.1 CM IN GREATEST DIMENSION NO LYMPHOVASCULAR INVASION IDENTIFIED NO PLEURAL INVASION IDENTIFIED FINAL PARENCHYMAL MARGIN FREE OF TUMOR UNINVOLVED LUNG PARENCHYMA WITH CONGESTION AND ATELECTASIS (See comment) C. Left inferior pulmonary ligament lymph node #9, excision: ONE LYMPH NODE, NEGATIVE FOR TUMOR (0/1) D. Left hilar lymph node #10, excision: ONE LYMPH NODE, NEGATIVE FOR TUMOR (0/1) GROSS DESCRIPTION A. Left lower lobe #1. Fresh from the OR is a segment of lung tissue measuring 14 x 4.5 x 2 cm. The stapled margin of resection is inked green. Serial sectioning reveals vascular scant fibrous streaks. No lesions are grossly identified. Multiple sections are submitted as A1 - A7. B. Left lower lobe biopsy #2. The specimen consists of a segment of lung with two stapled margins measuring 14 x 6.5 x 3.5 cm. A single nodule is palpable. The old stapled margin is inked blue. The new stapled margin is inked black. Sectioning reveals a quezada-white firm lesion that measures 1.1 x 1 x 1 cm and abuts the old stapled margin. It is located 2.3 cm from the new stapled margin of resection. The pleura does not appear to be grossly invovled. Intra-operative touch preparation of lesion is performed. The lesion is entirely submitted in cassettes B1 - B3, and the new furthest stapled margin submitted as B4 - B7, and normal-appearing lung parenchyma as B8. C. Lymph node #9. The specimen consists of an anthracotic pigmented node measuring 0.8 x 0.5 x 0.3 cm. Sectioned and entirely submitted as C1. CONTINUED ON NEXT PAGE --RUN DATE: 06/23/20 [place] - LAB PAGE 3 RUN TIME: 1255 Specimen Inquiry RUN USER: INTERFACE --SPEC #: [id number]:[id number] PATIENT: LUDIN CHIN #[id number] (Continued) GROSS DESCRIPTION (Continued) D. Lymph node #10. The specimen consists of a single node measuring 0.7 x 0.5 x 0.4 cm. Bisected and submitted as D1. /tc/pdb MICROSCOPIC DESCRIPTION A-D. Performed. INTRAOPERATIVE CONSULTATION A. Left lower lobe #1: MINIMAL GROSS DEVIATION. DEFER TO PERMANENT. /sb/cb B. (TP1) Left lower lobe biopsy #2: NONSMALL CELL CARCINOMA. MARGIN APPEARS GROSSLY FREE. /sb/cb SYNOPTIC REPORT ACOS-MANDATED SYNOPTIC DATA ELEMENTS Procedure: Segmental resection Specimen laterality: Left Tumor site: Lower lobe of lung Tumor size: Greatest dimension: 1.1 cm Tumor focality: Single focus Histologic type: Invasive adenocarcinoma, acinar predominant Histologic grade: G2: Moderately differentiated Visceral pleura invasion: Not identified Lymphovascular invasion: Not identified Direct invasion of adjacent structures: No adjacent structures present Margins: Parenchymal margin uninvolved by tumor Regional lymph nodes: Number of lymph nodes involved: 0 Number of lymph nodes examined: 2 Pathologic stage classification (pTNM, AJCC 8th Edition): pT1bN0 COMMENT: Immunohistochemical stains were performed and show that the tumor cells are positive for TTF-1 and CK7 and essentially negative for p63 and CK 5/6. The morphologic and immunohistochemical features support the diagnosis of moderately differentiated adenocarcinoma. The immunohistochemistry stain(s) listed above for technical and professional components were performed at [facility]. CPT Code(s): 70628, 30093f4 CONTINUED ON NEXT PAGE --RUN DATE: 06/23/20 [facility] LAB PAGE 4 RUN TIME: 1255 Specimen Inquiry RUN USER: INTERFACE --SPEC #: [id number]:[id number] PATIENT: LUDIN CHIN #[id number] (Continued) -- Signed SIGNATURE ON FILE MaurihaiVicky 06/23/20 1254 -- END OF REPORT - XR CHEST [id number] 08:21:00 [facility] 1950 Sex: F Patient Name: LUDIN CHIN Unit No: [id number] EXAMS: CPT CODE: [id number] XR CHEST 1V 79312 HISTORY: Status post excision of lung lesion Comparison made to prior from June 21, 2020 Location code: B2 FINDINGS: Frontal view of the chest demonstrates normal cardiomediastinal silhouette. The trachea is midline. The lungs are clear. There is a mild left effusion with atelectasis. No pneumothorax. Left subclavian catheter in place. The bones are intact. IMPRESSION: Mild left effusion with atelectasis. at 0821 Reported and signed by: Bowen Muro M.D. CC: Guadalupe LARA Technologist: Anais Fox RT (R) Transcrpt Date/Tm/Trnsp: 06/22/2020 (820) [email or web address] Orig Print D/T: S: 06/22/2020 (08) [facility] NAME: LUDIN CHIN[address] PHYS: [place] [address] : 1950 AGE: 69 SEX: F LOC: Z.362 A PHONE #: [phone] EXAM DATE: 06/22/2020 STATUS: ADM IN FAX #: [phone] RADIOLOGY NO: PAGE 1 Signed Report- XR CHEST [id number] 21:07:00 [facility] : 1950 Sex: F Patient Name: LUDIN CHIN Unit No: [id number] EXAMS: CPT CODE: [id number] XR CHEST 1V 71620 EXAM: Portable chest one view. Location code:J9 HISTORY: Dyspnea COMPARISON: 06/21/2020 COMMENT: Interval placement of a left subclavian line with tip in the SVC. Stable mild left pleural effusion with left base atelectasis. The aorta, pulmonary vasculature and mediastinum are within normal limits. Cardiac silhouette is normal in size and contour. A compacted chronic appearing right humeral neck fracture is noted. IMPRESSION: Interval placement of left subclavian line. Mild left pleural effusion is suggested. at 2106 Reported and signed by: Param Calero M.D. CC: Guadalupe LARA Technologist: Hortencia Franz (RT) Transcrpt Date/Tm/Trnsp: 06/21/2020 (2106) [id number] Orig Print D/T:S: 06/21/2020 (2109) [facility] NAME: LUDIN CHIN [id number] PHYS: [place] [address] : 1950 AGE: 69 SEX: F LOC: Z.362 A PHONE #: [phone] EXAM DATE: 06/21/2020 STATUS: ADM IN FAX #: [phone] RADIOLOGY NO: PAGE 1 Signed Report- XR CHEST [id number] 08:22:00 [facility] : 1950 Sex: F Patient Name: LUDIN CHIN Unit No: [id number] EXAMS: CPT CODE: [id number] XR CHEST 1V 81440 HISTORY: Status post excision of lung lesion Comparison to June 20, 2020 Location code: B2 FINDINGS: Frontal view of the chest demonstrates normal cardiomediastinal silhouette. The trachea is midline. The lungs are clear. There is a trace left effusion with atelectasis. No pneumothorax. Left- sided chest tube is in place. Minimal left subcutaneous emphysema. The bones are intact. IMPRESSION:Trace left effusion with atelectasis, improved from prior. at 0822 Reported and signed by: Bowen Muro M.D. CC: Guadalupe LARA Technologist: Annie Singh RT(R) Transcrpt Date/Tm/Trnsp: 06/21/2020 (821) [email or web address] Orig Print D/T: S: 06/21/2020 (825) [facility] NAME: LUDIN CHIN [address] PHYS: [place] [address] : 1950 AGE: 69 SEX: F LOC: Z.362 A PHONE #: [phone] EXAM DATE: 06/21/2020 STATUS: ADM IN FAX #: [phone] RADIOLOGY NO: PAGE 1 Signed [id number] 22:00:00 Test Item Value Reference Range Interpretation Comments CORTISOL (test code = CORTR) 8.09 ug/dL 1.7-22.7 N UNABLE TO DRAW BLOOD, REASON: CBNNOTIFIED PATIENT CARE STAFF: JESSICA 06/20/20 AT 1727 BY Lucia Burciaga- THOMAS CHEST [id number] 08:31:00 [facility] : 1950 Sex: F Patient Name: LUDIN CHIN Unit No: [id number] EXAMS: CPT CODE: [id number] XR CHEST 1V 31988 LOCATION: T18 EXAM: CHEST 1 VIEW INDICATION: , Post Op Thoracotomy COMPARISON: Chest x-ray June 11, 2020 TECHNIQUE: AP chest radiograph. FINDINGS: Moderate left pleural effusion present. Left lower lobe subsegmental atelectasis noted. Left portacatheter is in stable position. Subcutaneous air of the left chest wall noted. No pneumothorax is seen. Right lung is clear. Heart is normal in size. Bones are unchanged. IMPRESSION: Moderate left pleural effusion with leftlower lobe subsegmental atelectasis. Subcutaneous air of the left chest wall. No pneumothorax. at 0831 Reported and signed by: Terry Degroot MD CC: Technologist: Clovis Sethi, RT(R) Transcrpt Date/Tm/Trnsp: 06/20/2020 (0831) [email or web address] Orig Print D/T: S: 06/20/2020 (0834) [facility] NAME: LUDIN CHIN [id number] PHYS: [place] [address] : 1950 AGE: 69 SEX: F LOC: Z.SI06 A PHONE #: [phone] EXAM DATE: 06/20/2020 STATUS: ADM IN FAX #: [phone] RADIOLOGY NO: PAGE 1 Signed ReportBASIC METABOLIC PANEL 2020-06-20 06:03:00 Test Item Value Reference Range Interpretation Comments SODIUM (test code = 137 MMOL/L 137-145 N NA) POTASSIUM (test code = 4.0 MMOL/L 3.5-5.1 N K) CHLORIDE (test code = 102 MMOL/L 98-107 N CL) CARBON DIOXIDE (test 30 MMOL/L 22-30 N code = CO2) ANION GAP (test code = 9 MMOL/L 14-24 L GAP) GLUCOSE (test code = 109 MG/DL 74-106 H GLU) BLOOD UREA NITROGEN 19 MG/DL 7-17 H (test code = BUN) GLOMERULAR FILTRATION > 60 Report ing units: RATE (test code = GFR) ml/mi n/1.73 m2 (Modified MDRD Formula)Referen ce Range: > or = 6 0 ml/min/1.73 m2 CREATININE (test code 0.60 MG/DL 0.52-1.04 N = CREAT) CALCIUM (test code = 8.3 MG/DL 8.4-10.2 L CA) [id number] 06:03:00 Test Item Value Reference Range Interpretation Comments MAGNESIUM (test code = MAG) 2.1 MG/DL 1.6-2.3 CBC W/AUTO [id number] 05:33:00 Test Item Value Reference Range Interpretation Comments WHITE BLOOD CELL (test code = 6.6 K/MM3 3.8-9.8 N WBC) RED BLOOD CELL (test code = 3.25 M/MM3 3.58-4.97 L RBC) HEMOGLOBIN (test code = HGB) 9.8 G/DL 11.2-14.9 L HEMATOCRIT (test code = HCT) 30.8 % 33.2-43.5 L MEAN CELL VOLUME (test code = 95 fL 80.7-99.1 N MCV) MEAN CELL HGB (test code = MCH) 30.2 pg 27.0-34.1 N MEAN CELL HGB CONCETRATION 31.8 % 32.2-35.7 L (test code = MCHC) RED CELL DISTRIBUTION WIDTH 12.6 % 12.1-15.2 N (test code = RDW) PLATELET COUNT (test code = 202 K/MM3 129-368 N PLT) MEAN PLATELET VOLUME (test code 9.6 fl 7.4-10.4 N = MPV) NEUTROPHIL % (test code = NT%) 56.9 % 43-75 N IMMATURE GRANULOCYTE % (test 0.2 % 0.0-2.0 N code = IG%) LYMPHOCYTE % (test code = LY%) 30.3 % 14-44 N MONOCYTE % (test code = MO%) 9.7 % 4-13 N EOSINOPHIL % (test code = EO%) 2.3 % 0-6 N BASOPHIL % (test code = BA%) 0.6 % 0-2 N NUCLEATED RBC % (test code = 0.0 % 0-1.0 N NRBC%) NEUTROPHIL # (test code = NT#) 3.78 K/mm3 2.0-7.6 N IMMATURE GRANULOCYTE # (test 0.01 x10 3/uL 0-0.03 N code = IG#) LYMPHOCYTE # (test code = LY#) 2.01 K/mm3 1.0-3.8 N MONOCYTE # (test code = MO#) 0.64 K/mm3 0.1-0.8 N EOSINOPHIL # (test code = EO#) 0.15 K/mm3 0.0-0.2 N BASOPHIL # (test code = BA#) 0.04 K/mm3 0.0-0.2 N NUCLEATED RBC # (test code = 0.00 K/mm3 0.0-0.1 N NRBC#) - CT ABD PELVIS W WO [id number] 09:35:00 [facility] 1950 Sex: F Patient Name: LUDIN CHIN Unit No: [id number] EXAMS: CPT CODE: [id number] CT ABD PELVIS W WO CONT 00353 EXAM: CT abdomen and pelvis without and with contrast Dictation location: C3 INDICATION: Lung cancer with bilateral renal masses COMPARISON: CT chest on 06/16/2020 and PET/CT on 04/18/2020 TECHNIQUE: Axial images of the abdomen and pelvis were obtained before and after 93 mL Isovue-300 IV contrast. Coronal and sagittal reformatted images were performed. Creatinine is 0.7 and estimated GFR is greaterthan 60. DISCUSSION: Lower thorax: A staple line at the lower left lung is partially visualized, new since the previous exam, indicating interval partial left pneumonectomy. There is nonspecific heterogeneous fluid and soft tissue attenuation near the staple line and at the left lower lobe, either due to a small hemothorax, collapsed lung, or a combination of these. A left-sided chest tube is partially visualized, with tip over the anterior left hemithorax. Coronary artery calcifications are noted. A left-sided thoracic wall and abdominal wall subcutaneous emphysema is noted. Hepatobiliary: Unremarkable.No biliary ductal dilatation. Gallbladder: Unremarkable. Spleen: Unremarkable. Pancreas: There is nonspecific mild pancreatic ductal dilation, measuring up to 5 mm in diameter. No pancreatic mass or peripancreatic fat stranding is seen. Kidneys: A too small to characterize cystic- appearing hypodensity is seen at the lower pole the left kidney, measuring up to 0.9 cm, very likely a cyst. The kidneys are otherwise unre markable. Adrenals: A 3.4 cm left adrenal nodule has noncontrast attenuation of24 Hounsfield units, venous phase attenuation of 30 Hounsfield units, and delayed phase attenuation of 30 Hounsfield units. This is indeterminate. A 1.8 cm right adrenal nodule has 35 Hounsfield unit noncontrast attenuation, 52 Hounsfield unit venous phase, and 50 Hounsfield unit delayed attenuation. This is indeterminate. Lymph nodes: No lymphadenopathy. Peritoneum/retroperitoneum: No intraabdominal free air or free fluid. Vessels: Unremarkable. Pelvic organs/bladder: A degenerated uterine fibroid is noted. No [facility] [place] NAME: LUDIN CHIN [id number] PHYS: [place] [address] : 1950 AGE: 69 SEX: F LOC: Z.SI06 APHONE #: [phone] EXAM DATE: 06/19/2020 STATUS: ADM IN FAX #: [phone] RAD #: D/C DT PAGE 1 Signed Report (CONTINUED) Patient Name: LUDIN CHIN Unit No: [id number] EXAMS: CPT CODE: [id number] CT [place] CONT [address]885 <Continued> adnexal abnormalities are seen. The bladder is unremarkable. Bowel: Moderate colonic diverticulosis is seen, without diverticulitis. There is moderate retained stool within the colon. The appendix is normal.No abnormal bowel wall thickening or bowel obstruction is seen. Bones/soft tissues: No fracture or evidence of bony neoplastic process. No hernia is seen. IMPR ESSION: 1. Interval partial left lobectomy, presumably for resection of the left lower lobe nodule noted on prior CT imaging. There is either atelectasis and/or hemothorax at the posterior left lung base at and posterior to the staple line. A left-sided chest tube isin place, with tip over the anterior left hemithorax. 2. 3.4 cm left and 1.8 cm right adrenal nodules are indeterminate based on washout criteria. However, these are unlikely to be metastatic given the larger size than the resected left lower lobe nodule and absence of PET-avidity compared to the PET-avid resected left lower lobe nodule. Malignancy is also unlikely given the absence of PET-avidity. Six-month follow-up with CT or short-term follow-up with adrenal mass protocol MRI may be useful for further characterization. 3. Mild nonspecific pancreatic ductal dilation of 5 mm diameter; no obvious pancreatic mass or evidence of pancreatitis is seen. 4. Additional findings include a normal appendix, colonic diverticulosis without diverticulitis, and a degenerated uterine fibroid. One or more of the following dose reduction techniques were used: Automatedexposure control, adjustment of the mA and/or kV according to patient size, and/or utilization of iterative reconstruction technique. DLP: 1437 mGy-cm CTDI: 30 mGy at 0935 Reported and signed by: Candelario Wright MD CC: Tiago Sanford MD Technologist: Guille Dumont RT (R) (CT); ... CTDI: DLP: Trnscrpt: 06/19/2020 (0935) t.SDR.[email or web address] [facility] NAME: LUDIN CHIN [address] PHYS: [place] [address] : 1950 AGE: 69 SEX: F LOC: Z.SI06 A PHONE #: [phone] EXAM DATE: 06/19/2020 STATUS: ADM IN FAX #: [phone] RAD #: D/C DT PAGE 2 Signed Report Patient Name: LUDIN CHIN UnitNo: [id number] EXAMS: CPT CODE: [id number] CT ABD [place]ELVIS W [place] CONT [address] <Continued> Orig Print D/T: S: 06/19/2020 (0938) [facility] NAME: LUDIN CHIN [id number] [address]: [place] [address] : 1950 AGE: 69 SEX: F LOC: Z.SI06 A PHONE #: [phone] EXAM DATE: 06/19/2020 STATUS: ADM IN FAX #: [phone] RAD #: D/C DT PAGE 3 Signed Report- XR CHEST [id number] 07:47:00[facility] : 1950 Sex: F Patient Name: LUDIN CHIN Unit No: [id number] EXAMS: CPT CODE: [id number] XR CHEST 1V 96667 Portable AP chest, 1 view Location Code: B2 CLINICAL HISTORY: Postop thoracotomy COMPARISON: 06/18/2020 06/17/2020 COMMENT: Left basilar chest tube remains. There is no pneumothorax. Small residual effusion is suspected with mild underlying left basilar airspace disease. Mild left lateral chest wall subcutaneous emphysema is continually decreased compared to prior. The right chest remains clear. Cardiomediastinal silhouette is stable. There is no acute osseous abnormality. Left subclavian central venous catheter is stable. IMPRESSION: Stable left basilar chest tube without pneumothorax. at 0704 Reported and signed by: Dominguez Galarza M.D. CC: Technologist: Clovis Sethi, RT(R) Transcrpt Date/Tm/Trnsp: 06/19/2020 (0780) [email or web address] Orig Print D/T: S: 06/19/2020 (0751) [facility] NAME: LUDIN CHIN [id number] [address] PHYS: [place] [address] : 1950 AGE: 69 SEX: F LOC: Z.SI06 A PHONE #: [phone] EXAM DATE: 06/19/2020 STATUS: ADM IN FAX #: [phone] RADIOLOGY NO: PAGE 1 Signed ReportBASIC METABOLIC PANEL 2020-06-19 05:47:00 Test Item Value Reference Range Interpretation Comments SODIUM (test code = 136 MMOL/L 137-145 L NA) POTASSIUM (test code = 3.8 MMOL/L 3.5-5.1 N K) CHLORIDE (test code = 101 MMOL/L 98-107 N CL) CARBON DIOXIDE (test 30 MMOL/L 22-30 N code = CO2) ANION GAP (test code = 9 MMOL/L 14-24 L GAP) GLUCOSE (test code = 118 MG/DL 74-106 H GLU) BLOOD UREA NITROGEN 20 MG/DL 7-17 H (test code = BUN) GLOMERULAR FILTRATION > 60 Report ing units: RATE (test code = GFR) ml/mi n/1.73 m2 (Modified MDRD Formula)Referen ce Range: > or = 6 0 ml/min/1.73 m2 CREATININE (test code 0.70 MG/DL 0.52-1.04 N = CREAT) CALCIUM (test code = 8.5 MG/DL 8.4-10.2 N CA) [id number] 05:47:00 Test Item Value Reference Range Interpretation Comments MAGNESIUM (test code = MAG) 1.8 MG/DL 1.6-2.3 N CBC W/AUTO [id number] 05:15:00 Test Item Value Reference Range Interpretation Comments WHITE BLOOD CELL (test code = 8.1 K/MM3 3.8-9.8 N WBC) RED BLOOD CELL (test code = 3.19 M/MM3 3.58-4.97 L RBC) HEMOGLOBIN (test code = HGB) 9.6 G/DL 11.2-14.9 L HEMATOCRIT (test code = HCT) 29.9 % 33.2-43.5 L MEAN CELL VOLUME (test code = 94 fL 80.7-99.1 N MCV) MEAN CELL HGB (test code = MCH) 30.1 pg 27.0-34.1 N MEAN CELL HGB CONCETRATION 32.1 % 32.2-35.7 L (test code = MCHC) RED CELL DISTRIBUTION WIDTH 12.7 % 12.1-15.2 N (test code = RDW) PLATELET COUNT (test code = 204 K/MM3 129-368 N PLT) MEAN PLATELET VOLUME (test code 9.6 fl 7.4-10.4 N = MPV) NEUTROPHIL % (test code = NT%) 61.6 % 43-75 N IMMATURE GRANULOCYTE % (test 0.2 % 0.0-2.0 N code = IG%) LYMPHOCYTE % (test code = LY%) 28.9 % 14-44 N MONOCYTE % (test code = MO%) 8.1 % 4-13 N EOSINOPHIL % (test code = EO%) 1.0 % 0-6 N BASOPHIL % (test code = BA%) 0.2 % 0-2 N NUCLEATED RBC % (test code = 0.0 % 0-1.0 N NRBC%) NEUTROPHIL # (test code = NT#) 4.99 K/mm3 2.0-7.6 N IMMATURE GRANULOCYTE # (test 0.02 x10 3/uL 0-0.03 N code = IG#) LYMPHOCYTE # (test code = LY#) 2.34 K/mm3 1.0-3.8 N MONOCYTE # (test code = MO#) 0.66 K/mm3 0.1-0.8 N EOSINOPHIL # (test code = EO#) 0.08 K/mm3 0.0-0.2 N BASOPHIL # (test code = BA#) 0.02 K/mm3 0.0-0.2 N NUCLEATED RBC # (test code = 0.00 K/mm3 0.0-0.1 N NRBC#) HEPATIC FUNCTION [id number] 13:33:00 Test Item Value Reference Range Interpretation Comments TOTAL PROTEIN 6.7 G/DL 6.3-8.2 N [facility] Clinical Diagnostic (test code = has made us nahun re of PROT) newinformation regarding the potential i nterference ofEltrombopag (a bone marrow stimulan t used to treatthrombocyt onmenia and aplastic anemia ) with specific assays on the Vitros 5600 of which Total Protein is one of thoseassays per formed in our lab.Interfe rence testing perform ed at Ortho determined that Eltrombopag does interfere with Vitros Total Protein asfollowsEltrom bopag Interference fo r Vitros Product Total Protein:======= Eltrombopag Max Observed A vg. BiasConcentrati on Concentration Concentration== ==== 2.5 mg/dl 6.0 g/dl +0.41 +0.34 3.5 mg/dl 6.0 g/dl +0.50 +0.45 5 mg/dl 6.0 g/dl +0.73 +0.65 2.5 mg/dl 8.0 g/dl +0.44 +0.41 3.5 mg/dl 8.0 g/dl +0.55 +0.52 5 mg/dl 8.0 g/dl +0.86 +0.77 ALBUMIN (test 3.7 G/DL 3.5-5.0 N code = ALB) BILIRUBIN TOTAL 0.5 MG/DL 0.2-1.3 N Eltrombopag Interference (test code = for Vitros Prod uct TBil, BILT) BuBc: Assa y Eltrombopag Analyte/ Max Observed Avg. Bias Concentrati on Concentration Concentration== ====TBil 7mg/dl T Neil/ 1.2mg/dl +0.23 mg.dl +0.20mg/dlBuBc 3.5mg/dl Bu/0.8mg/dl +0.25mg/dl +0 .24mg/dlBuBc 7 mg/dl Bu/14.2mg/dl +0.38mg/dl +0.25mg/dlBuBc 5mg/dl Bc/0mg/dl +0.25mg/dl +0 .15mg/dlBuBc 3.5mg/dl Bc/2.8mg/dl +0.25mg/dl +0.23mg/dl BILIRUBIN DIRECT 0.0 MG/DL 0.0-0.3 N Eltrombopag Interference (test code = for Vitros Prod uct TBil, BILD) BuBc: Assa y Eltrombopag Analyte/ Max Observed Avg. Bias Concentrati on Concentration Concentration== ====TBil 7mg/dl T Neil/ 1.2mg/dl +0.23 mg.dl +0.20mg/dlBuBc 3.5mg/dl Bu/0.8mg/dl +0.25mg/dl +0 .24mg/dlBuBc 7 mg/dl Bu/14.2mg/dl +0.38mg/dl +0.25mg/dlBuBc 5mg/dl Bc/0mg/dl +0.25mg/dl +0 .15mg/dlBuBc 3.5mg/dl Bc/2.8mg/dl +0.25mg/dl +0.23mg/dl SGOT/AST (test 34 UNITS/L 14-36 N code = AST) SGPT/ALT (test 19 UNITS/L <35 code = ALT) ALKALINE 48 UNITS/L 38-126 N PHOSPHATASE (test code = ALKP) : from blood drawn earlier- XR CHEST [id number] 08:52:00 [facility] 1950 Sex: F Patient Name: LUDIN CHIN Unit No: [id number] EXAMS: CPT CODE: [id number] XR CHEST 1V 14604 Portable AP chest, 1 view Location Code: B2 CLINICAL HISTORY: Postop thoracotomy COMPARISON: 06/17/2020 COMMENT: Left basilar chest tube remains. There is no pneumothorax. Small residual effusion is suspected with mild underlying left basilar airspace disease. Mild left lateral chest wall subcutaneous emphysema is slightly decreased compared to prior. The right chest is clear. Cardiac mediastinal silhouette is stable. There is no acute osseous abnormality. Left subclavian central venous catheter remains. IMPRESSION: Stable left basilar chest tube without pneumo thorax. at 0852 Reported and signed by: Dominguez Galarza M.D. CC: Technologist: Clovis Sethi, RT(R) Transcrpt Date/Tm/Trnsp: 06/18/2020 (851) [email or web address] Orig Print D/T: S: 06/18/2020 (0855) [facility] NAME: LUDIN CHIN [address] [address] PHYS: [place] [address] : 1950 AGE: 69 SEX: F LOC: [id number] Kimberly PHONE #: [phone] EXAM DATE: 06/18/2020 STATUS: ADM IN FAX #: [phone] RADIOLOGY NO: PAGE 1 Signed Report BASIC METABOLIC [id number] 05:03:00 Test Item Value Reference Range Interpretation Comments SODIUM (test code = 139 MMOL/L 137-145 N NA) POTASSIUM (test code = 3.9 MMOL/L 3.5-5.1 N K) CHLORIDE (test code = 103 MMOL/L 98-107 N CL) CARBON DIOXIDE (test 27 MMOL/L 22-30 N code = CO2) GLUCOSE (test code = 123 MG/DL 74-106 H GLU) BLOOD UREA NITROGEN 13 MG/DL 7-17 N (test code = BUN) GLOMERULAR FILTRATION > 60 Report ing units: RATE (test code = GFR) ml/mi n/1.73 m2 (Modified MDRD Formula)Referen ce Range: > or = 6 0 ml/min/1.73 m2 CREATININE (test code 0.60 MG/DL 0.52-1.04 N = CREAT) CALCIUM (test code = 8.9 MG/DL 8.4-10.2 N CA) [id number] 05:03:00 Test Item Value Reference Range Interpretation Comments MAGNESIUM (test code = MAG) 1.8 MG/DL 1.6-2.3 N CBC W/AUTO [id number] 04:47:00 Test Item Value Reference Range Interpretation Comments WHITE BLOOD CELL (test code = 8.6 K/MM3 3.8-9.8 N WBC) RED BLOOD CELL (test code = 3.54 M/MM3 3.58-4.97 L RBC) HEMOGLOBIN (test code = HGB) 11.0 G/DL 11.2-14.9 L HEMATOCRIT (test code = HCT) 32.6 % 33.2-43.5 L MEAN CELL VOLUME (test code = 92 fL 80.7-99.1 N MCV) MEAN CELL HGB (test code = MCH) 31.1 pg 27.0-34.1 N MEAN CELL HGB CONCETRATION 33.7 % 32.2-35.7 N (test code = MCHC) RED CELL DISTRIBUTION WIDTH 12.8 % 12.1-15.2 N (test code = RDW) PLATELET COUNT (test code = 222 K/MM3 129-368 N PLT) MEAN PLATELET VOLUME (test code 9.0 fl 7.4-10.4 N = MPV) NEUTROPHIL % (test code = NT%) 66.6 % 43-75 N IMMATURE GRANULOCYTE % (test 0.2 % 0.0-2.0 N code = IG%) LYMPHOCYTE % (test code = LY%) 26.2 % 14-44 N MONOCYTE % (test code = MO%) 6.8 % 4-13 N EOSINOPHIL % (test code = EO%) 0.1 % 0-6 N BASOPHIL % (test code = BA%) 0.1 % 0-2 N NUCLEATED RBC % (test code = 0.0 % 0-1.0 N NRBC%) NEUTROPHIL # (test code = NT#) 5.70 K/mm3 2.0-7.6 N IMMATURE GRANULOCYTE # (test 0.02 x10 3/uL 0-0.03 N code = IG#) LYMPHOCYTE # (test code = LY#) 2.24 K/mm3 1.0-3.8 N MONOCYTE # (test code = MO#) 0.58 K/mm3 0.1-0.8 N EOSINOPHIL # (test code = EO#) 0.01 K/mm3 0.0-0.2 N BASOPHIL # (test code = BA#) 0.01 K/mm3 0.0-0.2 N NUCLEATED RBC # (test code = 0.00 K/mm3 0.0-0.1 N NRBC#) BASIC METABOLIC [id number] 15:41:00 Test Item Value Reference Range Interpretation Comments SODIUM (test code = 139 MMOL/L 137-145 N NA) POTASSIUM (test code = 3.6 MMOL/L 3.5-5.1 N K) CHLORIDE (test code = 105 MMOL/L 98-107 N CL) CARBON DIOXIDE (test 29 MMOL/L 22-30 N code = CO2) ANION GAP (test code = 9 MMOL/L 14-24 L GAP) GLUCOSE (test code = 135 MG/DL 74-106 H GLU) BLOOD UREA NITROGEN 14 MG/DL 7-17 N (test code = BUN) GLOMERULAR FILTRATION > 60 Report ing units: RATE (test code = GFR) ml/mi n/1.73 m2 (Modified MDRD Formula)Referen ce Range: > or = 6 0 ml/min/1.73 m2 CREATININE (test code 0.50 MG/DL 0.52-1.04 L = CREAT) CALCIUM (test code = 9.2 MG/DL 8.4-10.2 N CA) UNABLE TO DRAW BLOOD, REASON: RN DRAWNOTIFIED PATIENT CARE STAFF: ON 06/17/20 AT 1422 BY Carlie [id number] 15:41:00 Test Item Value Reference Range Interpretation Comments MAGNESIUM (test code = MAG) 1.8 MG/DL 1.6-2.3 N UNABLE TO DRAW BLOOD, REASON: RN DRAWNOTIFIED PATIENT CARE STAFF: ON 06/17/20 AT 1422 BY Carlie BarrazaeCBC W/AUTO [id number] 15:25:00 Test Item Value Reference Range Interpretation Comments WHITE BLOOD CELL (test code = 10.9 K/MM3 3.8-9.8 H WBC) RED BLOOD CELL (test code = 3.72 M/MM3 3.58-4.97 N RBC) HEMOGLOBIN (test code = HGB) 11.5 G/DL 11.2-14.9 N HEMATOCRIT (test code = HCT) 35.1 % 33.2-43.5 N MEAN CELL VOLUME (test code = 94 fL 80.7-99.1 N MCV) MEAN CELL HGB (test code = MCH) 30.9 pg 27.0-34.1 N MEAN CELL HGB CONCETRATION 32.8 % 32.2-35.7 N (test code = MCHC) RED CELL DISTRIBUTION WIDTH 13.0 % 12.1-15.2 N (test code = RDW) PLATELET COUNT (test code = 225 K/MM3 129-368 N PLT) MEAN PLATELET VOLUME (test code 9.5 fl 7.4-10.4 N = MPV) NEUTROPHIL % (test code = NT%) 86.7 % 43-75 H IMMATURE GRANULOCYTE % (test 0.6 % 0.0-2.0 N code = IG%) LYMPHOCYTE % (test code = LY%) 10.4 % 14-44 L MONOCYTE % (test code = MO%) 2.0 % 4-13 L EOSINOPHIL % (test code = EO%) 0.1 % 0-6 N BASOPHIL % (test code = BA%) 0.2 % 0-2 N NUCLEATED RBC % (test code = 0.0 % 0-1.0 N NRBC%) NEUTROPHIL # (test code = NT#) 9.45 K/mm3 2.0-7.6 H IMMATURE GRANULOCYTE # (test 0.07 x10 3/uL 0-0.03 H code = IG#) LYMPHOCYTE # (test code = LY#) 1.13 K/mm3 1.0-3.8 N MONOCYTE # (test code = MO#) 0.22 K/mm3 0.1-0.8 N EOSINOPHIL # (test code = EO#) 0.01 K/mm3 0.0-0.2 N BASOPHIL # (test code = BA#) 0.02 K/mm3 0.0-0.2 N NUCLEATED RBC # (test code = 0.00 K/mm3 0.0-0.1 N NRBC#) UNABLE TO DRAW BLOOD, REASON: RN DRAWNOTIFIED PATIENT CARE STAFF: ON 06/17/20 AT 1422 BY Brenda Barraza- XR CHEST [id number] 13:55:00 [facility] : 1950 Sex: F Patient Name: LUDIN CHIN Unit No: [id number] EXAMS: CPT CODE: [id number] XR CHEST 1V 51598 EXAMINATION: - XR CHEST 1V HISTORY: Postop COMPARISON: Chest x-ray and chest CT performed June 16, 2020 LOCATION CODE: C3 FINDINGS: Single frontal view of the chest is submitted for evaluation. A new small left pleural effusion is present and there are areas of subcutaneous emphysema in the left lower chest wall, presumably related to interval thoracotomy. Left chest tube is present. The right lung is clear. Cardiac silhouette and mediastinal contours are unremarkable. Chronicdeformity of the right proximal humerus is stable IMPRESSION: New pos tsurgical changes in the left hemithorax with a small pleural effusion noted at 1355 Reported and signed by: Iona Alexander MD CC: Technologist: Renetta Aleman, CHARLEERS, RT(R) Transcrpt Date/Tm/Trnsp: 06/17/2020 (6482)t.SDR.AG38 Orig Print D/T: S: 06/17/2020 (2378) [facility] NAME: LUDIN CHIN [address] [address] PHYS: [place] [address] : 1950 AGE: 69 SEX: F LOC: Z.SI06 A PHONE #: [phone] EXAM DATE: 06/17/2020 STATUS: ADM IN FAX #: [phone] RADIOLOGY NO: PAGE 1 Signed ReportARTERIAL BLOOD [id number] 13:53:00 Test Item Value Reference Range Interpretation Comments ARTERIAL BLOOD GAS PH 7.34 mmHg 7.35-7.45 L (test code = PHA) ARTERIAL BLOOD GAS 38.6 mmHg 35.0-45.0 N PCO2 (test code = PCO2A) ARTERIAL BLOOD GAS 201.6 mmol/L 80.0-100.0 H PO2 (test code = PO2A) BICARBONATE TOTAL 20.2 mmol/L 20.0-26.0 N HCO3 (test code = HCO3) BASE EXCESS (test -5.1 mmol/L -3.0-3.0 L code = MELO) ABG O2 SATURATION 99.3 % 95.0-100.0 N (test code = SATA) ABG DELIVERY (test SMASK code = KIYA) ABG TEMPERATURE (test 37.0 C See_Comment [Auto mated message] code = TEMPA) The system [employer] generated this result transmit rafael reference range : 37. The reference r hair was not used to interpret this result as normal/abnormal . ABG SITE (test code = AL SITEA) ALLENS TEST (test NA CHECK code = ALLENS) FIO2 (test code = 40 % COHBGFFIO2) PaO2/[id number] 13:53:00 Test Item Value Reference Range Interpretation Comments PaO2/FiO2 (test code = [id number]) 504.00 mm/Hg ARTERIAL BLOOD [id number] 13:52:00 Test Item Value Reference Range Interpretation Comments ARTERIAL BLOOD GAS PH 7.34 mmHg 7.35-7.45 L (test code = PHA) ARTERIAL BLOOD GAS 38.6 mmHg 35.0-45.0 N PCO2 (test code = PCO2A) ARTERIAL BLOOD GAS 201.6 mmol/L 80.0-100.0 H PO2 (test code = PO2A) BICARBONATE TOTAL 20.2 mmol/L 20.0-26.0 N HCO3 (test code = HCO3) BASE EXCESS (test -5.1 mmol/L -3.0-3.0 L code = MELO) ABG O2 SATURATION 99.3 % 95.0-100.0 N (test code = SATA) ABG DELIVERY (test SMASK code = KIYA) ABG TEMPERATURE (test 37.0 C See_Comment [Auto mated message] code = TEMPA) The system [employer] generated this result transmit rafael reference range : 37. The reference r hair was not used to interpret this result as normal/abnormal . ABG SITE (test code = AL SITEA) ALLENS TEST (test NA CHECK code = ALLENS) FIO2 (test code = 40 % COHBGFFIO2) PaO2/[id number] 13:52:00 Test Item Value Reference Range Interpretation Comments PaO2/FiO2 (test code = [id number]) mm/Hg COVID 19 Asymptomatic IH [id number] 17:58:00 Test Item Value Reference Range Interpretation Comments COVID 19 NEGATIVE Negative "Negative resul ts from Asymptomatic IH AG patients with symptom (test code = onset beyondfiv e days, COVNONPUIAG) should be maegan rafael as presumptive, andconfirmation with a molecular assay , if necessary forpa tient management may be performed. Nega tive results do notr ule out COVID-19 and sh ould not be used as the sole basisfor treatm ent or patient managem ent decisions, includinginfect ion control decisio ns. Negative result s should beconsidered in the context of a pa tients recent exposure s,history, and the presenc e of clinical signs and symptomsconsist ent with COVID-19.This t est detects both vi able andnon-viable S ARS-CoV and SARS CoV-2. Test performance dep endson the amount of virus (antigen) in the sample." HIV 12 AB [id number] 16:02:00 Test Item Value Reference Range Interpretation Comments HIV 1 2 COMBO AG/AB SCREEN AB/AG NON REACTIVE NONREACTIVE (test code = [id number]) BASIC METABOLIC [id number] 15:16:00 Test Item Value Reference Range Interpretation Comments SODIUM (test code = 139 MMOL/L 137-145 N NA) POTASSIUM (test code = 4.3 MMOL/L 3.5-5.1 N K) CHLORIDE (test code = 104 MMOL/L 98-107 N CL) CARBON DIOXIDE (test 28 MMOL/L 22-30 N code = CO2) GLUCOSE (test code = 96 MG/DL 74-106 N GLU) BLOOD UREA NITROGEN 15 MG/DL 7-17 N (test code = BUN) GLOMERULAR FILTRATION > 60 Report ing units: RATE (test code = GFR) ml/mi n/1.73 m2 (Modified MDRD Formula)Referen ce Range: > or = 6 0 ml/min/1.73 m2 CREATININE (test code 0.70 MG/DL 0.52-1.04 N = CREAT) CALCIUM (test code = 9.4 MG/DL 8.4-10.2 N CA) PROTHROMBIN [id number] 15:09:00 Test Item Value Reference Range Interpretation Comments PROTHROMBIN TIME PATIENT 11.8 9.5-12.7 N (test code = PTP) INTERNATIONAL NORMAL RATIO 1.1 0.86-1.14 N T he INR is to be used (test code = INR) only for m onitoring oral anticoagulantth erapy. INDICATION INR VALUE ------- ------- -----1. Prophylaxis, d eep venous thrombos is, including high risk surgery. 2.0 - 3.0 2. Prophylaxis, de ep venous thrombos is, hip surgery, tr eatment for deep venous thrombosis or pulmonary preve ntion of systemic embolism in pat ients with valvula r heart disease, atrial fibrillation, tissue heart va lve, or acute myocardia l infarction. 2.0 - 3.0 3. Mechanical pros thesis heart valves, recurrent syste janine embolism. 3.0 - 4.5 PTT [id number] 15:09:00 Test Item Value Reference Range Interpretation Comments PTT ACTIVATED (test code = APTT) 34.8 SECONDS 25.1-36.5 N CBC W/AUTO [id number] 14:55:00 Test Item Value Reference Range Interpretation Comments WHITE BLOOD CELL (test code = 7.0 K/MM3 3.8-9.8 N WBC) RED BLOOD CELL (test code = 4.08 M/MM3 3.58-4.97 N RBC) HEMOGLOBIN (test code = HGB) 12.6 G/DL 11.2-14.9 N HEMATOCRIT (test code = HCT) 38.9 % 33.2-43.5 N MEAN CELL VOLUME (test code = 95 fL 80.7-99.1 N MCV) MEAN CELL HGB (test code = MCH) 30.9 pg 27.0-34.1 N MEAN CELL HGB CONCETRATION 32.4 % 32.2-35.7 N (test code = MCHC) RED CELL DISTRIBUTION WIDTH 13.1 % 12.1-15.2 N (test code = RDW) PLATELET COUNT (test code = 261 K/MM3 129-368 N PLT) MEAN PLATELET VOLUME (test code 8.9 fl 7.4-10.4 N = MPV) NEUTROPHIL % (test code = NT%) 56.8 % 43-75 N IMMATURE GRANULOCYTE % (test 0.1 % 0.0-2.0 N code = IG%) LYMPHOCYTE % (test code = LY%) 34.5 % 14-44 N MONOCYTE % (test code = MO%) 7.2 % 4-13 N EOSINOPHIL % (test code = EO%) 1.0 % 0-6 N BASOPHIL % (test code = BA%) 0.4 % 0-2 N NUCLEATED RBC % (test code = 0.0 % 0-1.0 N NRBC%) NEUTROPHIL # (test code = NT#) 3.99 K/mm3 2.0-7.6 N IMMATURE GRANULOCYTE # (test 0.01 x10 3/uL 0-0.03 N code = IG#) LYMPHOCYTE # (test code = LY#) 2.43 K/mm3 1.0-3.8 N MONOCYTE # (test code = MO#) 0.51 K/mm3 0.1-0.8 N EOSINOPHIL # (test code = EO#) 0.07 K/mm3 0.0-0.2 N BASOPHIL # (test code = BA#) 0.03 K/mm3 0.0-0.2 N NUCLEATED RBC # (test code = 0.00 K/mm3 0.0-0.1 N NRBC#) - CT CHEST W/O [id number] 13:51:00 [facility] : 1950 Sex: F Patient Name: LUDIN CHIN Unit No: [id number] EXAMS: CPT CODE: [id number] CT CHEST W/O CONTRAST 03532 - CT CHEST W/O CONTRAST INDICATION: LEFT LOWER LUNG NODULE COMPARISON: PET/CT dated April 18, 2020 PROCEDURE: Helical CT imaging of [facility] was performed without intravenous contrast. Sagittal and coronal reformats were obtained. One or more of the following dose reduction techniques were used: Automated exposure control, adjustment of the mA and/or kV according to patient size, and/or utilization of iterative reconstruction technique. FINDINGS: LUNGS AND LARGE AIRWAYS: A solid 10 mm nodule in the left lower lobe is unchanged in size and appearance to the c omparison PET/CT (series 4, image 42). A focal 18 x 9 mm groundglass opacity in the left upper lobe is also stable (series 4, image 26). This area did not demonstrate hypermetabolicactivity on the comparison PET/CT. Attention on follow-up exams is recommended.PLEURA: No pleural effusion or thickening is identified. HEART: The heart size is normal. No pericardial effusion. VESSELS: Atherosclerotic changes are present in the aortaand coronary arteries. MEDIASTINUM AND KARLEY: No lymphadenopathy. CHEST WALL AND LOWER NECK: Within normal limits. VISUALIZED UPPER ABDOMEN: A left adrenal mass measures 3.8 x 3 cm in size. A right adrenal mass measures 2 x 1.3 cm. These are similar in size and appearance of the comparison PET/CT. BONES: A moderate T12 compression deformity is redemonstrated. IMPRESSION: 1. A solid 10 mm nodule in the left lower lobe is stable to the comparison PET/CT on April 18, 2020. 2. An 18 mm groundglass nodule in the left upper lobe is also stable. This should be followed on future exams. 3. Stable size and appearance of bilateral adrenal masses. LOCATION: [address] NAME: LUDIN CHIN PHYS: [place] [address] : 1950 AGE: 69 SEX: F LOC: ZVeodin PHONE #: [phone] EXAM DATE: 06/16/2020TATUS: REG CLI FAX #: [phone] RAD #: D/C DT PAGE1 Signed Report (CONTINUED) Patient Name: LUDIN CHIN Unit No: [id number] EXAMS: CPT CODE: [id number] CT CHEST W/O CONTRAST 58836 <Continued> at 1351 Reported and signed by: Venkatesh Aguirre M.D. CC: Technologist: Roni Medina, RT(R); Mando Green CTDI: DLP:Trnscrpt: 06/16/2020 (1351) [email or web address] [facility] NAME: LUDIN CHIN PHYS: [place] [address] : 1950 AGE: 69 SEX: F LOC: [employer] PHONE #: [phone] EXAM DATE: 06/16/2020 STATUS: REG CLI FAX #: [phone] RAD #: D/C DT PAGE 2 Signed Report Patient Na me: LUDIN CHIN Unit No: [id number] EXAMS: CPT CODE: [id number] CT CHEST W/O CONTRAST 96083 <Continued> Orig Print D/T: S: 06/16/2020 (1654) [facility] NAME: LUDIN CHIN [address] [address] PHYS: [place] [address] : 1950 AGE: 69 SEX: F LOC: Z.[facility] PHONE #: [phone] EXAM DATE: 06/16/2020 STATUS: REG CLI FAX #: [phone] RAD #: D/C DT PAGE 3 Signed Report- XR CHEST 2 V 2020-06-16 13:31:00 [facility] : 1950 Sex: F Patient Name: LUDIN CHIN Unit No: [id number] EXAMS: CPT CODE: [id number] XR CHEST 2 V 54691 EXAMINATION: - XR CHEST 2 V. LOCATION: B2. HISTORY: PRE OP. COMPARISON: PET/CT dated 04/18/2020. TECHNIQUE: PA and lateral views of the chest were obtained. FINDINGS: The heart is normal in size. The lungs are clear. The known left lower lobe nodule is not well-visualized. There is a remote-appearing right humeral neck fracture. Age- indeterminate L1 compression fracture is also noted. IMPRESSION: No acute cardiopulmonary abnormality. The known left lower lobe nodule is not well-visualized. at 1331 Reported and signed by: Aubrey Siddiqui MD CC: Technologist: Anais Fox, RT (R) Transcrpt Date/Tm/Trnsp: 06/16/2020 (1331) [email or web address] Orig PrintD/T: S: 06/16/2020 (5904) [facility] NAME: LUDIN CHIN [id number] [address] PHYS: [place] [address] : 1950 AGE: 69 SEX: F LOC: Z.[facility] PHONE #: [phone] EXAM DATE: 06/16/2020 STATUS: REG CLI FAX #: [phone] RADIOLOGY NO: PAGE 1 Signed Report- PET/CT [id number] 09:59:00 [facility] : 1950 Sex: F Patient Name: LUDIN CHIN Unit No: [id number] EXAMS: CPT CODE: [id number] PET/CT TUMOR [facility] [address] EXAM: PET/CT scan INDICATION: SOLITARY PULMONARY NODULE COMPARISON: None at this time LOCATION: [facility] TECHNIQUE: Approximately 60 minutes following the intravenous administration of 11.48 mCi F-18 FDG, a PET scan was obtained from the skull vertex to the mid thigh. Axial noncontrast nondiagnostic CT images were also obtained for anatomic localization. Glucose level at radiotracer administration was 99 mg/dL. FINDINGS: There is a 9 mm soft tissue density nodule in the left lower lobe, which demonstrates hypermetabolic activity. The maximum SUV is 1.7. No other solid lung nodule is identified. There is a very minimal focal patchy opacity in the left upper lobe, which does not demonstrate hypermetabolic activity. No other areas of abnormal hypermetabolic activity are identified. No lymphadenopathy isidentified. There is a left adrenal lesion, measuring 3.7 x 3.1 cm in transverse dimensions, which does not demonstrate hypermetabolic activity. There is a right adrenal lesion, measuring 1.8 x 1.4 cm in transverse dimensions, which does not demonstrate hypermetabolic activity. The kidneys, ureters, bladder and bowel demonstrate normal distributionof tracer activity. Impression: There is a 9 mm soft tissue density nodule in the left lower lobe, demonstrating hypermetabolic activity, with a maximum SUV of1.7. This could be due to a neoplastic process, such as primary lung cancer or metastatic disease. Interventional radiology consult for biopsy is recommended. There are bilateral adrenal lesions, which do not demonstrate hypermetabolic activity, and are most consistent with a benign process such as adrenal adenomas. There is a very minimal focal patchy opacity in the left upper lobe, which does not demonstrate hypermetabolic activity, and could be due to atelectasis, scarring or pneumonia. [facility] NAME: LUDIN CHIN [address] [address] PHYS: [place] [address] : 1950 AGE: 69 SEX: F LOC: Z.ZNUC PHONE #: [phone] EXAM DATE: 04/18/2020 STATUS: DEP CLI FAX #: [phone] RADIOLOGY NO: PAGE 1 Signed Report (CONTINUED) Patient Name: LUDIN CHIN Unit No: [id number] EXAMS: CPT CODE: [id number] PET/CT TUMOR SK BS MIDTH 30323 <Continued> at 0959 Reported and signed by: Paxton Sullivan [facility]: Gillian Broussard MD Technologist: Charlene Kearns, RT(M)(CT); ... Transcrpt Date/Tm/Trnsp: 04/19/2020 (0959) t.SDR.PMT Orig Print D/T: S: 04/19/2020 (1002) [facility] NAME: LUDIN CHIN [address] [facility] [address] PHYS: [place] [address] : 1950 AGE: 69 SEX: F LOC: ZAntonyZNUC PHONE #: [phone] EXAM DATE: 04/18/2020 STATUS: DEP CLI FAX #: [phone] RADIOLOGY NO: PAGE 2 Signed [id number] 13:09:00 Test Item Value Reference Range Interpretation Comments GLUCOSE (test code = GLU) 99 MG/DL 79-105 N Comments to Weatherization Operations Manager: FOR PRT/CTIs this a LINE draw? N
[2021-09-01] MEDS ORDERED: ACETAMINOPHEN 325 MG TABLET PO PRN (23:03)
[2021-09-02] MEDS: carvediloL 12.5 MG TAB PO SCH ×2 (05:13→17:36)
[2021-09-02] MEDS ORDERED: UMECLIDINIUM VILANTEROL IH SCH (08:00)
[2021-09-02] MEDS: TIOTROPIUM 5 SPRAYS/INHALER IH SCH (08:00)
[2021-09-02] MEDS: AMLODIPINE 5 MG TAB PO SCH (09:34)
[2021-09-02] MEDS: ANORO ELLIPTA IH SCH (09:36)
[2021-09-02 10:27] LABS: Absolute Lymphocytes (CBC) 1.5 K/uL (0.7-4.9); Hematocrit 43.9 % (36.0-45.0); Lymphocytes % 15.5 % (15.3-44.8); MCV 92.2 fL (80-100); MPV 7.8 fL (7.6-11.3); RBC Red Blood Cell Count 4.76 M/uL (3.86-4.86)
[2021-09-02 10:43] LABS: Albumin 2.8 g/dL (3.4-5.0); Magnesium 2.3 mg/dL (1.8-2.4); Prealbumin 21.6 mg/dL (20-40)
--- NOTE | 2021-09-02 15:46 | P.PN ---
Date of Service: 09/02/21 Note Mrs. Peace is just admitted for inpatient rehabilitation with a left hemispheric subdural hematoma. Will obtain a head CT scan and compare with the most recent study from [facility] prior to starting Eliquis 2.5 mg bid. Will use SCDs until the state of her subdural hematoma is evaluated.
--- NOTE | 2021-09-02 15:50 | R.HP ---
HISTORY AND PHYSICAL FACILITY: [facility] ENCOUNTER DATE AND TIME: 09/02/2021 15:46 (CDT) MR#: [id number] NAME Kenya Peace ADDRESS: [id number] [facility]: [place] [address] [address] PHONE: ( DATE OF : 1950 AGE: 70 SSN# [id number] GENDER: Female MARITAL STATUS PRE-HOSPITAL LIVING SETTING 01 - Home (private home/apt. board/care, assisted living, [place] [facility], transitional living) PRE-HOSPITAL LIVING WITH Alone ENCOUNTER PHYSICIAN: Dr. Kirk Kinsey M.D. REFERRING DOCTOR: JAVIER BALL MD DATE OF ADMISSION: 09/01/2021 22:44 (CDT) REFERRING FACILITY [facility] HOME TYPE AND DETAILS: Type of home: single family house # of levels in the residence: 1 # of steps within the residence: 0 # of steps to enter the residence: 0 ONSET DATE: 08/26/2021 PRIMARY DIAGNOSIS-RELATED SURGERIES: N/A SECONDARY/COMORBID DIAGNOSES (TIERED): - Non-Tiered Dysphagia, unspecified (R13.10) Fracture of unspecified part of right clavicle (S42.001) Disorientation, unspecified (R41.0) Essential (primary) hypertension (I10) Hyperlipidemia, unspecified (E78.5) Coronary Artery Disease Traumatic cerebral edema (S06.1) buckle sacral fx HISTORY OF PRESENT ILLNESS (HPI): Pt. is a 70 yo Right-handed female. On 08/26/2021 she was admitted to [facility] with diagnosis Traumatic subdural hemorrhage with loss of consciousness of unspecified duration, initial encounter (S06.5X9A). Her impairment category is Brain Dysfunction 02 - Closed Injury (05.16). Pre-morbidly, Pt. was independent/mod-I in Locomotion, Safety Awareness, Social Cognition, Transfers Control, and Balance; and she had good Sphincter Control, Self-Care, Communication, and Endurance. Currently, she has deficits of Locomotion, Safety Awareness, Social Cognition, Balance, Transfers Con trol, Sphincter Control, Self-Care, Endurance, and Communication. Pt. is now referred to [facility] for acute in-patient rehabilitation in order to maximize patient's functional independence in activities of daily living, strength, ROM, and mobi lity. Patient has realistic goal of being discharged at assistance level 5-sup to reside at Home with Pt s elf. MEDICATION ALLERGIES: No Known Drug Allergies (NKDA) ENVIRONMENTAL ALLERGIES: - Substance Allergies None Known - Other Allergies None Known PAST MEDICAL HISTORY: Essential (primary) hypertension (I10) FALLS Hyperlipidemia, unspecified (E78.5) CAD UTI L subdural hematoma 04/28/2019 Traumatic cerebral edema (S06.1) Other spondylosis, lumbar region (M47.896) PAST SURGICAL HISTORY: Craniotomy for L subdural hematoma 04/28/2019 SOCIAL HISTORY: - Home Living Alone REVIEW OF SYSTEMS: - Gen No Chills Fatigue No Fever - Eyes No Double Vision No itchiness - ENMT No Difficulty Swallowing - CVS No Chest Discomfort No Chest Pain Fatigue No Weight Gain - Resp No Cough No Shortness of Breath - GI Continent No Abdominal Pain No Constipation No Diarrhea - Continent No Kidney Pain No Painful Urination No Urinary Urgency - MSK No Joint Pain No Muscle Cramps Stiffness - Skin No Itching No Rash No Suspicious Lesions - Neuro Coordination Difficulty Difficulty with Concentration Memory Loss No Seizures Weakness - Psych Anxiety No Depression No HIV Exposure No Persistent Infections No Seasonal Allergies - Endo No Cold/Heat Intolerance No Excessive Hunger No Excessive Thirst No Excessive Urination PHYSICAL EXAM - Gen Alert and awake Lying in bed No apparent distress Oriented to: person, time, and place - Skin No skin breakdown. No abnormalities - Eyes No abnormalities - ENMT No abnormalities - Neck No abnormalities - CVS RRR - Chest No abnormalities - Resp No wheezing - Abd Soft - GI Non distended Deferred - No abnormalities - Ext No significant edema - MSK 4+/5 weakness in both lower extremities. - Neuro No focal deficits - Psych Mild confusion about situation. No psyhchosis. VITAL SIGNS Temperature: 97.3 F SBP/DBP: 147/77 Pulse: 73 Resp: 14 NURSING: - Shower allowing shower - Bladder care per protocol - Skin care per protocol PRECAUTIONS: - Aspiration Precaution 1 to 1 supervision with all po intake All meals in the dysphagia dining room No straws Seated at 90 degrees while eating and 30 minutes after meals - Fall Precaution 1 to 1 supervision Bed alarm TABS alarm Wheel chair alarm - R Clavicle NWB R UE ROM as tolerated R UE ACTIVITIES OOB only with supervision QI SCORES: - Self-Care A. Eating 03-Partial/moderate assistance B. Oral hygiene 02-Substantial/maximal assistance C. Toileting hygiene 02-Substantial/maximal assistance E. Shower/bathe self 02-Substantial/maximal assistance F. Upper body dressing 03-Partial/moderate assistance G. Lower body dressing 02-Substantial/maximal assistance H. Putting on/taking off footwear 88-Not attempted due to medical condition or safety concerns - Mobility A. Roll left and right 03-Partial/moderate assistance B. Sit to lying 03-Partial/moderate assistance C. Lying to sitting on side of bed 03-Partial/moderate assistance D. Sit to stand 02-Substantial/maximal assistance E. Chair/sde-wr-atmoz transfer 03-Partial/moderate assistance F. Toilet transfer 02-Substantial/maximal assistance G. Car transfer 88-Not attempted due to medical condition or safety concerns I. Walk 10 feet 03-Partial/moderate assistance J. Walk 50 feet with two turns 03-Partial/moderate assistance K. Walk 150 feet 88-Not attempted due to medical condition or safety concerns L. Walking 10 feet on uneven surfaces 88-Not attempted due to medical condition or safety concerns M. 1 step (curb) 88-Not attempted due to medical condition or safety concerns N. 4 steps 88-Not attempted due to medical condition or safety concerns O. 12 steps 88-Not attempted due to medical condition or safety concerns P. Picking up object 88-Not attempted due to medical condition or safety concerns R. Wheel 50 feet with two turns 88-Not attempted due to medical condition or safety concerns S. Wheel 150 feet 88-Not attempted due to medical condition or safety concerns - Bladder and Bowel Bladder continence Bowel continence - Endurance Fair - Balance Poor - Safety Awareness Fair CURRENT FUNC. DEFICITS: Self-Care, Mobility, Endurance, Balance, and Safety Awareness MEDICATIONS: - Other See attached MAR (Medication Administration Record) ASSESSMENT: Pt. is a 70 yo Right-handed female.On 08/26/2021 she was admitted to [facility] with diagnosis Traumatic subdural hemorrhage with loss of consciousness of unspecified duration, initial encounter ( S06.5X9A).Her impairment category is Brain Dysfunction 02 - Closed Injury (05.16).Pre-morbidly, Pt. was independent/mod-I in Locomotion, Safety Awareness, Social Cognition, Transfers Control, and Sherice ce; and she had good Sphincter Control, Self-Care, Communication, and Endurance.Currently, she has de ficits of Locomotion, Safety Awareness, Social Cognition, Balance, Transfers Control, Sphincter Contr ol, Self-Care, Endurance, and Communication.Pt. is now referred to [facility] for acute in-patient rehabilitation in order to maximize patient's functional independence in activit ies of daily living, strength, ROM, and mobility.- Rehab Goal Patient has realistic goal of being discharged at assistance level 5-sup to reside at Home with Pt s elf. - Physical Therapy Gait dysfunction - to improve, our physical therapists will perform initial evaluation of pt's status upon admission and devise an individualized program for Gait Training, and Wheel Chair mobility Inability to transfer - to improve, our physical therapists will perform initial evaluation of pt's s tatus upon admission and devise an individualized program for Bed mobility Need for home safety evaluation - to improve, our physical therapists will perform initial evaluation of pt's status upon admission and devise an individualized program for Home Evaluation Need in caregiver upon discharge - to improve, our physical therapists will perform initial evaluatio n of pt's status upon admission and devise an individualized program for Caregiver Training New precaution - to improve, our physical therapists will perform initial evaluation of pt's status u yady admission and devise an individualized program for Patient precaution education Edema - to improve, our physical therapists will perform initial evaluation of pt's status upon admi ssion and devise an individualized program for Elevation Training, and Lymphedema Therapy Poor balance - to improve, our physical therapists will perform initial evaluation of pt's status upo n admission and devise an individualized program for Balance Training Poor endurance - to improve, our physical therapists will perform initial evaluation of pt's status u yady admission and devise an individualized program for Endurance Training Weakness - to improve, our physical therapists will perform initial evaluation of pt's status upon ad mission and devise an individualized program for Aquatic Therapy, Neuromuscular Reeducation, and Stre ngthening Achieving independence - to improve, our physical therapists will perform initial evaluation of pt's status upon admission and devise an individualized program for Community Reintegration Activities - Occupational Therapy ADL deficits - to improve, our occupation therapists will perform initial evaluation of pt's status u yady admission and devise an individualized program for Bathing, Bed mobility, Community Reintegration , Cooking, Dressing, Eating, Fine Motor Skills, Grooming, Homemaking, Kitchen Mobility, Laundry, Carolyn ent Education, Safety Awareness, Splinting - Positioning, Transfers(Toilet, Tub, Shower), and Wheel C hair Management Cognitive deficits - to improve, our occupation therapists will perform initial evaluation of pt's st atus upon admission and devise an individualized program for Cognition - orientation Need for behavioral health care manager - to improve, our occupation therapists will perform initial evaluation of pt's s tatus upon admission and devise an individualized program for Caregiver Training Weakness - to improve, our occupation therapists will perform initial evaluation of pt's status upon admission and devise an individualized program for Aquatic Therapy, Balance, Endurance, UE ROM, and U E strengthening MEDICAL PLAN: - Diet Type Start Regular - Diet - Liquid Texture Start Regular - Tube Feed Start N/A - Bladder care per protocol - Aspiration Precaution 1 to 1 supervision with all po intake All meals in the dysphagia dining room No straws Seated at 90 degrees while eating and 30 minutes after meals - Fall Precaution 1 to 1 supervision Bed alarm TABS alarm Wheel chair alarm - Skin care per protocol - Other See attached MAR (Medication Administration Record) - Shower shower - R Clavicle NWB R UE ROM as tolerated R UE DISCHARGE PLAN: - Estimated Length of Stay (days) 17. - Consensus on plan Discharge plan has been discussed with primary caregiver. Patient/Family is in agreement with the regina n. Primary caregiver is in agreement with the plan. - Patient/Family Goals Return home with assistance. - Planned Living Setting Upon Discharge Home, to live alone. Transitional Living. Primary caregiver: Pt self. SIGNATURE PANEL: (CDT)
--- NOTE | 2021-09-02 15:51 | PAPE ---
POST ADMISSION PHYSICIAN EVALUATION PATIENT: [facility] MR# [id number] REFERRING DOCTOR JAVIER BALL MD EVALUATION DATE AND TIME 09/02/2021 15:50 (CDT) NAME Kenya Peace DATE OF 1950 AGE 70 PHONE ( SSN# [id number] GENDER female EVALUATING PHYSICIAN Dr. Kirk Kinsey M.D. ADMISSION DIAGNOSIS: Traumatic subdural hemorrhage with loss of consciousness of unspecified duration, initial encounter ( S06.5X9A) Acute traumatic subdural subarachnoid hemorrhage ONSET DATE 08/26/2021 SECONDARY/COMORBID DIAGNOSES TIERED: - Non-Tiered Dysphagia, unspecified (R13.10) Fracture of unspecified part of right clavicle (S42.001) Disorientation, unspecified (R41.0) Essential (primary) hypertension (I10) Hyperlipidemia, unspecified (E78.5) Coronary Artery Disease Traumatic cerebral edema (S06.1) buckle sacral fx POST-ADMISSION FUNCTIONAL/MEDICAL STATUS: - Bladder Same accident frequency: 7-Ind - No accidents in the past 7 days - Bowel Same accident frequency: 7-Ind - No accidents in the past 7 days - Walking Same score based on distance walked: 0(N/A) Same score based on distance walked: 2(50-149ft) - Wheelchair Same score based on distance traveled: 0(N/A) STATUS CHANGE EVALUATION: No change in Functional or Medical Status is identified compared with Pre-Admission screening. PATIENT NEEDS CLOSE MEDICAL SUPERVISION BY A REHABILITATION PHYSICIAN FOR: Coordination of Treatment Team Medical and Co-Morbidity Management Wound Care Pain Management DVT Management Bowel and Bladder Management PATIENT REQUIRES 24X7 REHAB NURSING FOR MEDICAL AND FUNCTIONAL MGT. OF THE FOLLOWING DEFICITS: Disease Management Medication Management Patient requires 24x7 Rehabilitation Nursing for: Pain Issues, Identifying and preventing risk factor s, Monitoring and reporting current medical conditions, Assisting with ambulation and transfer, Jenny ting with all ADL-s, Teaching patients about disease process and medications, Family teaching, Provid ing safe environment, Bowel and Bladder Issues, Skin Integrity, and Medication Management Patient/Family Education Providing Safe Environment Skin Integrity Swallowing PATIENT REQUIRES INTENSIVE, COORDINATED INTERDISCIPLINARY APPROACH TO REHAB: Arranging Home Equipment/Services Discharge Planning Family Intervention/Training Patient needs Dietary and Nutrition Services for: Adequate Nutrition, Nutritional Supplements, and Nu tritional Education Patient needs Mobile Home Park Manager and/or Case Management for: Discharge Planning, Arranging Home Equipmen t or Services, and Family Interventions Mobile Home Park Manager/Case Management LIST OF IDENTIFIED AND POTENTIAL PROBLEMS: Alteration in leisure activities Aspiration, Actual or Potential Bladder, Incontinence Blood Pressure, Hypertension/hypotension Issues Bowel, Incontinence Falls, Actual or Potential Infection, Actual or Potential Mobility Impaired Pain, Alteration in Comfort Self Care Deficit Skin Integrity, Actual or Potential Urinary Tract Infection (UTI), Actual or Potential RISK FOR COMPLICATIONS - SKIN BREAKDOWN Nursing will assess skin daily using assessment tool and will place on Skin Breakdown Precautions as Indicated per protocol. - Neurologic Complications Regular Neuro checks. Routine vital assessment. Monitor for signs and symptoms of neurologic distress . - Falls Educated pt on fall prevention strategies to reduce/eliminate fall risk. Patient will be evaluated fo r Fall Precautions and will be placed on Fall Precautions as indicated per protocol. - DVT Administer anti-coagulants as indicated by physician and monitor for effectiveness. Mobility training and regular exercise. - Aspiration Aggressive Speech therapy will be provided due to dysphagia. - Weakness Regular therapeutic activity and exercise. Strengthening exercises to be performed. - UTI Monitor for frequency, burning, discomfort, or incontinence. Physician medical management as warrante d. INTERVENTIONS - WOUNDS Nursing will assess skin daily using assessment tool and will place on Skin Breakdown Precautions as Indicated per protocol. - Hyperlipidemia Administer medications as per MD. - Dysphagia Aggressive Speech Therapy to enhance to performance and prevent aspiration and reduce risk for pneumo luz elena. - Weakness Daily therapy services to enhance patient's functional strength and abilities. - Hypertension Blood pressure will be regularly assessed and medications administered as per physician recommendatio ns. Appropriate BP range needs to be maintained to ensure optimal brain healing. - CAD Vitals will be regularly monitored and symptoms managed. Administer Medication as indicated by physic tomasa. - R Clavicle Fx ROM as tolerated during therapy. Sling as needed. NWB R UE until otherwise instructed by orthopedic s jasbir. PATIENT COULD BE AT RISK FOR COMPLICATIONS FROM ADVERSE MEDICAL CONDITIONS DUE TO HIS/HER COMORBIDITI ES AND THE RIGORS OF THE INTENSIVE REHABILLITATION PROGRAM. METHODS OR INTERVENTIONS TO AVOID COMPLIC ATIONS INCLUDE: - Deep Vein Thrombosis (DVT) Prophylaxis therapy for prevention . Sequential Compression Device (SCD). NICOLE Gardner. - Bleeding Assess lab values and manage abnormalities. Nursing to teach precautions for anti-coagulation therapy . Wound to be assessed every shift. - Infection Clinical staff to assess and manage the signs and symptoms of infection including fever, redness, war mth, etc. - Urinary Tract Infection - Aspiration Clinical staff will assess and manage coughing, drooling, congestion. - Falls Patient will be evaluated for Fall Precautions and will be placed on Fall Precautions as indicated pe r protocol. - Skin Breakdown Nursing will assess skin daily using assessment tool and will place on Skin Breakdown Precautions as indicated per protocol. - Pain Clinical staff may employ non-medication methods such as massage, distraction, decrease stimulus, etc . as needed. Clinical staff will assess patient's pain level every shift per protocol to assess and e nsure pain management effectiveness. Medications will be given and the pain level re-assessed. PRELIMINARY PLAN OF CARE: - Physical Therapy Patient needs Physical Therapy for a daily minimum of 1.5 hours at least 5 out of 7 days, to improve: Mobility, Strengthening, Transfers, Stretching, ROM, Endurance, Ability to manage stairs, Gait, and Balance. - Speech Therapy Patient needs Speech Therapy for a daily minimum of 0.5 hours at least 5 out of 7 days, to improve: S wallowing, Cognition, Language Skills, and Compensatory Strategies. - Rehabilitation Nursing Patient requires 24x7 Rehabilitation Nursing for: Pain Issues, Identifying and preventing risk factor s, Monitoring and reporting current medical conditions, Assisting with ambulation and transfer, Jenny ting with all ADL-s, Teaching patients about disease process and medications, Family teaching, Provid ing safe environment, Bowel and Bladder Issues, Skin Integrity, and Medication Management. Patient needs Mobile Home Park Manager and/or Case Management for: Discharge Planning, Arranging Home Equipmen t or Services, and Family Interventions. - Dietary and Nutrition Services Patient needs Dietary and Nutrition Services for: Adequate Nutrition, Nutritional Supplements, and Nu tritional Education. - Occupational Therapy Patient needs Occupational Therapy for a daily minimum of 1.5 hours at least 5 out of 7 days, to impr ove Activities of Daily Living, including: Eating, Grooming, Bathing, Dressing, Toileting, Toilet Tra nsfers, Community Reintegration, Higher functional activities, Adaptive Equipment, Splinting, Househo ld Tasks, and Other activities as determined. QI SCORES: - Self-Care A. Eating 03-Partial/moderate assistance B. Oral hygiene 02-Substantial/maximal assistance C. Toileting hygiene 02-Substantial/maximal assistance E. Shower/bathe self 02-Substantial/maximal assistance F. Upper body dressing 03-Partial/moderate assistance G. Lower body dressing 02-Substantial/maximal assistance H. Putting on/taking off footwear 88-Not attempted due to medical condition or safety concerns - Mobility A. Roll left and right 03-Partial/moderate assistance B. Sit to lying 03-Partial/moderate assistance C. Lying to sitting on side of bed 03-Partial/moderate assistance D. Sit to stand 02-Substantial/maximal assistance E. Chair/jer-yi-igtii transfer 03-Partial/moderate assistance F. Toilet transfer 02-Substantial/maximal assistance G. Car transfer 88-Not attempted due to medical condition or safety concerns I. Walk 10 feet 03-Partial/moderate assistance J. Walk 50 feet with two turns 03-Partial/moderate assistance K. Walk 150 feet 88-Not attempted due to medical condition or safety concerns L. Walking 10 feet on uneven surfaces 88-Not attempted due to medical condition or safety concerns M. 1 step (curb) 88-Not attempted due to medical condition or safety concerns N. 4 steps 88-Not attempted due to medical condition or safety concerns O. 12 steps 88-Not attempted due to medical condition or safety concerns P. Picking up object 88-Not attempted due to medical condition or safety concerns R. Wheel 50 feet with two turns 88-Not attempted due to medical condition or safety concerns S. Wheel 150 feet 88-Not attempted due to medical condition or safety concerns - Bladder and Bowel Bladder continence Bowel continence - Endurance Fair - Balance Poor - Safety Awareness Fair POTENTIAL FUNCTIONAL GOALS FOR PATIENT TO ACHIEVE BY DISCHARGE: - Safety Precaution Patient will remain free from falls or injury at time of discharge. - Bed Mobility Patient will perform bed mobility at 4-Gabriella level of assistance. - Transfers Patient will complete transfers from bed to chair at 4-Gabriella level of assistance. - Mobility Patient will ambulate 150 ft with 4-Gabriella level of assistance with RW. PATIENT REHAB POTENTIAL Cookie Peace is able and expected to receive 3 hours of individualized therapy daily on at least 5 7 days Cookie Peace's prognosis for significant practical improvement within a reasonable period of time appears Good Expected level of measurable improvement will be of a practical value to Cookie Peace's functional capaci ty or adaptations to impairments Has a viable Discharge Plan Medically appropriate; condition is sufficiently stable to participate in intensive rehab program DISCHARGE PLAN: - Estimated Length of Stay (days) 17. - Consensus on plan Discharge plan has been discussed with primary caregiver. Patient/Family is in agreement with the regina n. Primary caregiver is in agreement with the plan. - Patient/Family Goals Return home with assistance. - Planned Living Setting Upon Discharge Home, to live alone. Transitional Living. Primary caregiver: Pt self. CONCLUSION ON REHABILITATION NECESSITY: I have evaluated patient's pre-admission functional status and, comparing it to the patient's post-ad mission functional status now, I conclude that the pre-admission assessment was accurate. Patient's c ondition on admission supports the medical necessity of admission to IRF. It is safe to proceed with patient's therapy program. SIGNATURE PANEL: (CDT)
[2021-09-02] MEDS: ATORVASTATIN 20 MG TAB PO SCH (19:25)
[2021-09-02] MEDS: TAMSULOSIN 0.4 MG SR CAP PO SCH (19:27)
[2021-09-02] MEDS: GABAPENTIN 300 MG CAP PO SCH (19:27)
[2021-09-02 21:13] VITALS: BMI 22.8
[2021-09-03] MEDS: carvediloL 12.5 MG TAB PO SCH ×2 (05:32→16:58)
[2021-09-03] MEDS: TIOTROPIUM 5 SPRAYS/INHALER IH SCH (08:00)
[2021-09-03] MEDS: AMLODIPINE 5 MG TAB PO SCH (08:10)
[2021-09-03] MEDS: ANORO ELLIPTA IH SCH (08:12)
[2021-09-03] MEDS ORDERED: cloNIDine HCL 0.1 MG TAB PO PRN (09:45)
[2021-09-03 16:26] LABS: Urine Appearance TURBID (Clear); Urine Bilirubin Negative (Negative); Urine Blood Negative (Negative); Urine Color Yellow (Yellow); Urine Glucose Negative (Negative); Urine Protein Negative (Negative)
[2021-09-03 16:30] LABS: Urine Microscopic Reflex ORDER UMIC
[2021-09-03 16:35] LABS: Urine Bacteria <20 /HPF (<20); Urine RBC <5 /HPF (NONE SEEN)
[2021-09-03] MEDS: TAMSULOSIN 0.4 MG SR CAP PO SCH (20:27)
[2021-09-03] MEDS: ATORVASTATIN 20 MG TAB PO SCH (20:27)
[2021-09-03] MEDS: GABAPENTIN 300 MG CAP PO SCH (20:27)
[2021-09-03] MEDS: DOCUSATE NA/SENNA CONC 1 TAB PO PRN (20:27)
[2021-09-04] MEDS: carvediloL 12.5 MG TAB PO SCH ×2 (05:46→17:46)
[2021-09-04] MEDS: TIOTROPIUM 5 SPRAYS/INHALER IH SCH (08:00)
[2021-09-04] MEDS: ANORO ELLIPTA IH SCH (08:00)
[2021-09-04] MEDS: AMLODIPINE 5 MG TAB PO SCH (09:37)
--- NOTE | 2021-09-04 15:32 | RAD REPORT ---
EXAM DESCRIPTION: CT - Head Brain Wo Cont - 09/04/2021 3:19 pm CLINICAL HISTORY: hx sub arachnoid hemorrhage Headache, drowsiness COMPARISON: No comparisons TECHNIQUE: All CT scans are performed using dose optimization technique as appropriate and may inclu de automated exposure control or mA/KV adjustment according to patient size. FINDINGS: There is significant motion artifact, limiting quality of the study.Extra-axial fluid mike ection on the right is present with load density measuring up to 8 mm in thickness favored to represe nt chronic subdural hematoma. There is mild [id number] midline shift evident. There is abnormal diminished density seen in the region of the left temporal lobe extending posterior ly. This is a nonspecific finding but could indicate CVA or neoplasm. Increased density is also seen within the inferior aspect of the left temporal lobe was well as the medial right inferior frontal lo be which could be areas of hemorrhage. Previous left craniotomy noted. IMPRESSION: Significant motion artifact is present limiting the study. Area of diminished density is seen in the white matter of the left temporal lobe could be related to prior infarct, trauma or underlying neoplasia. 8 mm extra-axial low-density collection along the right convexity probably chronic subdural hematoma results in mild right to left midline shift. Subtle areas of increased density seen medial right frontal lobe inferior left temporal lobe could in dicate areas of hemorrhage or cortical contusion.
--- NOTE | 2021-09-04 17:55 | R.PN ---
PROGRESS NOTES ENCOUNTER DATE AND TIME: 09/04/2021 17:47 (CDT) NAME Kenya Peace DATE OF : 1950 DATE OF ADMISSION: 09/01/2021 22:44 (CDT) Traumatic subdural hemorrhage with loss of consciousness of unspecified duration, initial encounter ( S06.5X9A)Acute traumatic subdural subarachnoid hemorrhageCHIEF COMPLAINT: Traumatic subdural hematoma, expressive and receptive aphasia SUBJECTIVE: Pt denied any Shortness of Breath. Pt denied any depression. CBC with diff and BMP are essentially normal. Cpvod-19 is negative, UA is negative so far. Transfers, bed mobility and gait 235' with RW done with CGA. VITAL SIGNS Temperature: 97.8 F SBP/DBP: 125/55 Pulse: 85 Resp: 16 MEDICATION ALLERGIES: No Known Drug Allergies (NKDA) ENVIRONMENTAL ALLERGIES: - Substance Allergies None Known - Other Allergies None Known NURSING: - Shower allowing shower - Bladder care per protocol - Skin care per protocol PRECAUTIONS: - Aspiration Precaution 1 to 1 supervision with all po intake All meals in the dysphagia dining room No straws Seated at 90 degrees while eating and 30 minutes after meals - Fall Precaution 1 to 1 supervision Bed alarm TABS alarm Wheel chair alarm - R Clavicle NWB R UE ROM as tolerated R UE ACTIVITIES OOB only with supervision THERAPIES: - Dietary and Nutrition Adequate Nutrition. Nutritional Education. Nutritional Supplements. Evaluate and Treat. - Occupational Therapy Cognitive Retraining. Patient needs Occupational Therapy for a daily minimum of 1.5 hours at least 5 out of 7 days, to improve Activities of Daily Living, including: Eating, Grooming, Bathing, Dressing, Toileting, Toilet Transfers, Community Reintegration, Higher functional activities, Adaptive Equipme nt, Splinting, Household Tasks, and Other activities as determined. Visual Perceptual Training. Evalu ate and Treat. Patient/Family Education. ADL Training. Safety Awareness. Eating. Transfer Training. U E Strengthening. - Speech Therapy Cognitive Training. Expressive Language Skills. Memory Strategies. Patient needs Speech Therapy for a daily minimum of 1.5 hours at least 5 out of 7 days, to improve: Swallowing, Cognition, Language Ski lls, and Compensatory Strategies. Receptive Language Skills. Speech Intelligibility Training. Evaluat e and Treat. - Physical Therapy Patient needs Physical Therapy for a daily minimum of 1.5 hours at least 5 out of 7 days, to improve: Mobility, Strengthening, Transfers, Stretching, ROM, Endurance, Ability to manage stairs, Gait, and Balance. Balance Training. Gait Training. Safety Awareness. Transfer Training. Mobility Training. Pat ient/Family Education. LE Strengthening. PHYSICAL EXAM - Gen Alert and awake Lying in bed No apparent distress Oriented to: person, time, and place - Skin No skin breakdown. No abnormalities - Eyes No abnormalities - ENMT No abnormalities - Neck No abnormalities - CVS RRR - Chest No abnormalities - Resp No wheezing - Abd Soft - GI Non distended Deferred - No abnormalities - Ext No significant edema - MSK 4+/5 weakness in both lower extremities. - Neuro No focal deficits - Psych Mild confusion about situation. No psyhchosis. ASSESSMENT: Pt. is a 70 yo Right-handed female.On 08/26/2021 she was admitted to [facility] with diagnosis Traumatic subdural hemorrhage with loss of consciousness of unspecified duration, initial encounter ( S06.5X9A).Her impairment category is Brain Dysfunction 02 - Closed Injury (05.16).Pre-morbidly, Pt. was independent/mod-I in Locomotion, Safety Awareness, Social Cognition, Transfers Control, and Sherice ce; and she had good Sphincter Control, Self-Care, Communication, and Endurance.Currently, she has de ficits of Locomotion, Safety Awareness, Social Cognition, Balance, Transfers Control, Sphincter Contr ol, Self-Care, Endurance, and Communication.Pt. is now referred to [facility] for acute in-patient rehabilitation in order to maximize patient's functional independence in activit ies of daily living, strength, ROM, and mobility.- Rehab Goal Patient has realistic goal of being discharged at assistance level 5-sup to reside at Home with Pt s elf. MDM/PLAN: - Physical Therapy Gait dysfunction - to improve, our physical therapists will perform initial evaluation of pt's statu s upon admission and devise an individualized program for Gait Training, and Wheel Chair mobility Inability to transfer - to improve, our physical therapists will perform initial evaluation of pt's status upon admission and devise an individualized program for Bed mobility Need for home safety evaluation - to improve, our physical therapists will perform initial evaluatio n of pt's status upon admission and devise an individualized program for Home Evaluation Need in caregiver upon discharge - to improve, our physical therapists will perform initial evaluati on of pt's status upon admission and devise an individualized program for Caregiver Training New precaution - to improve, our physical therapists will perform initial evaluation of pt's status upon admission and devise an individualized program for Patient precaution education Edema - to improve, our physical therapists will perform initial evaluation of pt's status upon admis bautista and devise an individualized program for Elevation Training, and Lymphedema Therapy Poor balance - to improve, our physical therapists will perform initial evaluation of pt's status up on admission and devise an individualized program for Balance Training Poor endurance - to improve, our physical therapists will perform initial evaluation of pt's status upon admission and devise an individualized program for Endurance Training Weakness - to improve, our physical therapists will perform initial evaluation of pt's status upon a dmission and devise an individualized program for Aquatic Therapy, Neuromuscular Reeducation, and Str engthening Achieving independence - to improve, our physical therapists will perform initial evaluation of pt's status upon admission and devise an individualized program for Community Reintegration Activities - Occupational Therapy ADL deficits - to improve, our occupation therapists will perform initial evaluation of pt's status upon admission and devise an individualized program for Bathing, Bed mobility, Community Reintegratio n, Cooking, Dressing, Eating, Fine Motor Skills, Grooming, Homemaking, Kitchen Mobility, Laundry, Pat ient Education, Safety Awareness, Splinting - Positioning, Transfers(Toilet, Tub, Shower), and Wheel Chair Management Cognitive deficits - to improve, our occupation therapists will perform initial evaluation of pt's s tatus upon admission and devise an individualized program for Cognition - orientation Need for child care nurse - to improve, our occupation therapists will perform initial evaluation of pt's status upon admission and devise an individualized program for Caregiver Training Weakness - to improve, our occupation therapists will perform initial evaluation of pt's status upon admission and devise an individualized program for Aquatic Therapy, Balance, Endurance, UE ROM, and UE strengthening - Other See attached MAR (Medication Administration Record) - Diet Type Continue Regular - Diet - Liquid Texture Continue Regular - Tube Feed Continue N/A - Bladder care per protocol - Aspiration Precaution 1 to 1 supervision with all po intake All meals in the dysphagia dining room No straws Seated at 90 degrees while eating and 30 minutes after meals - Fall Precaution 1 to 1 supervision Bed alarm TABS alarm Wheel chair alarm - Skin care per protocol - Shower allowing shower - R Clavicle NWB R UE ROM as tolerated R UE FUNCTIONAL STATUS: UPDATED AT WEEKLY TEAM CONFERENCE - Bladder Same accident frequency: 7-Ind - No accidents in the past 7 days - Bowel Same accident frequency: 7-Ind - No accidents in the past 7 days - Walking Same score based on distance walked: 0(N/A) Same score based on distance walked: 2(50-149ft) - Wheelchair Same score based on distance traveled: 0(N/A) FUNCTIONAL STATUS: - Self-Care A. Eating Torres B. Grooming Torres C. Bathing Gabriella D. Dressing - Upper Gabriella E. Dressing - Lower modA F. Toileting Gabriella - Sphincter Control G. Bladder control Torres H. Bowel control Torres - Transfers Control I. Bed/Chair/Wheelchair sup J. Toilet sup K. Tub/Shower Gabriella - Locomotion L. Walk/Wheelchair (B) Gabriella M. Stairs maxA - Communication N. Comprehension (B) modA O. Expression (B) modA - Social Cognition P. Social Interaction Gabriella Q. Problem Solving sup R. Memory modA - Endurance Good - Balance Good - Safety Awareness Fair QI SCORES: - Self-Care A. Eating 03-Partial/moderate assistance B. Oral hygiene 02-Substantial/maximal assistance C. Toileting hygiene 02-Substantial/maximal assistance E. Shower/bathe self 02-Substantial/maximal assistance F. Upper body dressing 03-Partial/moderate assistance G. Lower body dressing 02-Substantial/maximal assistance H. Putting on/taking off footwear 88-Not attempted due to medical condition or safety concerns - Mobility A. Roll left and right 03-Partial/moderate assistance B. Sit to lying 03-Partial/moderate assistance C. Lying to sitting on side of bed 03-Partial/moderate assistance D. Sit to stand 02-Substantial/maximal assistance E. Chair/kly-za-bfyef transfer 03-Partial/moderate assistance F. Toilet transfer 02-Substantial/maximal assistance G. Car transfer 88-Not attempted due to medical condition or safety concerns I. Walk 10 feet 03-Partial/moderate assistance J. Walk 50 feet with two turns 03-Partial/moderate assistance K. Walk 150 feet 88-Not attempted due to medical condition or safety concerns L. Walking 10 feet on uneven surfaces 88-Not attempted due to medical condition or safety concerns M. 1 step (curb) 88-Not attempted due to medical condition or safety concerns N. 4 steps 88-Not attempted due to medical condition or safety concerns O. 12 steps 88-Not attempted due to medical condition or safety concerns P. Picking up object 88-Not attempted due to medical condition or safety concerns R. Wheel 50 feet with two turns 88-Not attempted due to medical condition or safety concerns S. Wheel 150 feet 88-Not attempted due to medical condition or safety concerns - Bladder and Bowel Bladder continence Bowel continence - Endurance Fair - Balance Poor - Safety Awareness Fair CURRENT [facility]. DEFICITS: Self-Care, Mobility, Endurance, Balance, and Safety Awareness SIGNATURE PANEL: (CDT)
[2021-09-04] MEDS ORDERED: ENSURE ENLIVE 237 ML CAN PO SCH (20:00)
[2021-09-04] MEDS: ATORVASTATIN 20 MG TAB PO SCH (21:03)
[2021-09-04] MEDS: TAMSULOSIN 0.4 MG SR CAP PO SCH (21:03)
[2021-09-04] MEDS: GABAPENTIN 300 MG CAP PO SCH (21:03)
[2021-09-04] MEDS: ENSURE ENLIVE 237 ML CAN PO SCH (21:04)
[2021-09-05] MEDS: carvediloL 12.5 MG TAB PO SCH ×2 (05:29→17:19)
[2021-09-05] MEDS: TIOTROPIUM 5 SPRAYS/INHALER IH SCH (08:00)
[2021-09-05] MEDS: MEGESTROL 400 MG/10 ML UCUP PO SCH (09:01)
[2021-09-05] MEDS: ENSURE ENLIVE 237 ML CAN PO SCH ×3 (09:01→20:59)
[2021-09-05] MEDS: ANORO ELLIPTA IH SCH (11:09)
[2021-09-05] MEDS: AMLODIPINE 5 MG TAB PO SCH (11:10)
--- NOTE | 2021-09-05 17:10 | R.PN ---
PROGRESS NOTES ENCOUNTER DATE AND TIME: 09/05/2021 10:46 (CDT) NAME Kenya Peace DATE OF : 1950 DATE OF ADMISSION: 09/01/2021 22:44 (CDT) Traumatic subdural hemorrhage with loss of consciousness of unspecified duration, initial encounter ( S06.5X9A)Acute traumatic subdural subarachnoid hemorrhageCHIEF COMPLAINT: Traumatic subdural hematoma, expressive and receptive aphasia SUBJECTIVE: Pt denied any Shortness of Breath. Pt denied any depression. CBC with diff and BMP are essentially normal. Cpvod-19 is negative, UA is negative but cultures show 4+ Alpha Strep. Ambulated 250' with CGA using a rolling walker. VITAL SIGNS Temperature: 97.6 F SBP/DBP: 110/72 Pulse: 83 Resp: 15 MEDICATION ALLERGIES: No Known Drug Allergies (NKDA) ENVIRONMENTAL ALLERGIES: - Substance Allergies None Known - Other Allergies None Known NURSING: - Shower allowing shower - Bladder care per protocol - Skin care per protocol PRECAUTIONS: - Aspiration Precaution 1 to 1 supervision with all po intake All meals in the dysphagia dining room No straws Seated at 90 degrees while eating and 30 minutes after meals - Fall Precaution 1 to 1 supervision Bed alarm TABS alarm Wheel chair alarm - R Clavicle NWB R UE ROM as tolerated R UE ACTIVITIES OOB only with supervision THERAPIES: - Dietary and Nutrition Adequate Nutrition. Nutritional Education. Nutritional Supplements. Evaluate and Treat. - Occupational Therapy Cognitive Retraining. Patient needs Occupational Therapy for a daily minimum of 1.5 hours at least 5 out of 7 days, to improve Activities of Daily Living, including: Eating, Grooming, Bathing, Dressing, Toileting, Toilet Transfers, Community Reintegration, Higher functional activities, Adaptive Equipme nt, Splinting, Household Tasks, and Other activities as determined. Visual Perceptual Training. Evalu ate and Treat. Patient/Family Education. ADL Training. Safety Awareness. Eating. Transfer Training. U E Strengthening. - Speech Therapy Cognitive Training. Expressive Language Skills. Memory Strategies. Patient needs Speech Therapy for a daily minimum of 1.5 hours at least 5 out of 7 days, to improve: Swallowing, Cognition, Language Ski lls, and Compensatory Strategies. Receptive Language Skills. Speech Intelligibility Training. Evaluat e and Treat. - Physical Therapy Patient needs Physical Therapy for a daily minimum of 1.5 hours at least 5 out of 7 days, to improve: Mobility, Strengthening, Transfers, Stretching, ROM, Endurance, Ability to manage stairs, Gait, and Balance. Balance Training. Gait Training. Safety Awareness. Transfer Training. Mobility Training. Pat ient/Family Education. LE Strengthening. PHYSICAL EXAM - Gen Alert and awake Lying in bed No apparent distress Oriented to: person, time, and place - Skin No skin breakdown. No abnormalities - Eyes No abnormalities - ENMT No abnormalities - Neck No abnormalities - CVS RRR - Chest No abnormalities - Resp No wheezing - Abd Soft - GI Non distended Deferred - No abnormalities - Ext No significant edema - MSK 4+/5 weakness in both lower extremities. - Neuro No focal deficits - Psych Mild confusion about situation. No psyhchosis. ASSESSMENT: Pt. is a 70 yo Right-handed female.On 08/26/2021 she was admitted to [facility] with diagnosis Traumatic subdural hemorrhage with loss of consciousness of unspecified duration, initial encounter ( S06.5X9A).Her impairment category is Brain Dysfunction 02 - Closed Injury (05.16).Pre-morbidly, Pt. was independent/mod-I in Locomotion, Safety Awareness, Social Cognition, Transfers Control, and Sherice ce; and she had good Sphincter Control, Self-Care, Communication, and Endurance.Currently, she has de ficits of Locomotion, Safety Awareness, Social Cognition, Balance, Transfers Control, Sphincter Contr ol, Self-Care, Endurance, and Communication.Pt. is now referred to [facility] for acute in-patient rehabilitation in order to maximize patient's functional independence in activit ies of daily living, strength, ROM, and mobility.- Rehab Goal Patient has realistic goal of being discharged at assistance level 5-sup to reside at Home with Pt s elf. MDM/PLAN: - Physical Therapy Gait dysfunction - to improve, our physical therapists will perform initial evaluation of pt's statu s upon admission and devise an individualized program for Gait Training, and Wheel Chair mobility Inability to transfer - to improve, our physical therapists will perform initial evaluation of pt's status upon admission and devise an individualized program for Bed mobility Need for home safety evaluation - to improve, our physical therapists will perform initial evaluatio n of pt's status upon admission and devise an individualized program for Home Evaluation Need in caregiver upon discharge - to improve, our physical therapists will perform initial evaluati on of pt's status upon admission and devise an individualized program for Caregiver Training New precaution - to improve, our physical therapists will perform initial evaluation of pt's status upon admission and devise an individualized program for Patient precaution education Edema - to improve, our physical therapists will perform initial evaluation of pt's status upon admi ssion and devise an individualized program for Elevation Training, and Lymphedema Therapy Poor balance - to improve, our physical therapists will perform initial evaluation of pt's status up on admission and devise an individualized program for Balance Training Poor endurance - to improve, our physical therapists will perform initial evaluation of pt's status upon admission and devise an individualized program for Endurance Training Weakness - to improve, our physical therapists will perform initial evaluation of pt's status upon a dmission and devise an individualized program for Aquatic Therapy, Neuromuscular Reeducation, and Str engthening Achieving independence - to improve, our physical therapists will perform initial evaluation of pt's status upon admission and devise an individualized program for Community Reintegration Activities - Occupational Therapy ADL deficits - to improve, our occupation therapists will perform initial evaluation of pt's status upon admission and devise an individualized program for Bathing, Bed mobility, Community Reintegratio n, Cooking, Dressing, Eating, Fine Motor Skills, Grooming, Homemaking, Kitchen Mobility, Laundry, Pat ient Education, Safety Awareness, Splinting - Positioning, Transfers(Toilet, Tub, Shower), and Wheel Chair Management Cognitive deficits - to improve, our occupation therapists will perform initial evaluation of pt's s tatus upon admission and devise an individualized program for Cognition - orientation Need for doggy daycare activities director - to improve, our occupation therapists will perform initial evaluation of pt's status upon admission and devise an individualized program for Caregiver Training Weakness - to improve, our occupation therapists will perform initial evaluation of pt's status upon admission and devise an individualized program for Aquatic Therapy, Balance, Endurance, UE ROM, and UE strengthening - Other See attached MAR (Medication Administration Record) - Diet Type Continue Regular - Diet - Liquid Texture Continue Regular - Tube Feed Continue N/A - Bladder care per protocol - Aspiration Precaution 1 to 1 supervision with all po intake All meals in the dysphagia dining room No straws Seated at 90 degrees while eating and 30 minutes after meals - Fall Precaution 1 to 1 supervision Bed alarm TABS alarm Wheel chair alarm - Skin care per protocol - Shower allowing shower - R Clavicle NWB R UE ROM as tolerated R UE FUNCTIONAL STATUS: UPDATED AT WEEKLY TEAM CONFERENCE - Bladder Same accident frequency: 7-Ind - No accidents in the past 7 days - Bowel Same accident frequency: 7-Ind - No accidents in the past 7 days - Walking Same score based on distance walked: 0(N/A) Same score based on distance walked: 2(50-149ft) - Wheelchair Same score based on distance traveled: 0(N/A) FUNCTIONAL STATUS: - Self-Care A. Eating Torres B. Grooming Torres C. Bathing Gabriella D. Dressing - Upper Gabriella E. Dressing - Lower modA F. Toileting Gabriella - Sphincter Control G. Bladder control Torres H. Bowel control Torres - Transfers Control I. Bed/Chair/Wheelchair sup J. Toilet sup K. Tub/Shower Gabriella - Locomotion L. Walk/Wheelchair (B) Gabriella M. Stairs maxA - Communication N. Comprehension (B) modA O. Expression (B) modA - Social Cognition P. Social Interaction Gabriella Q. Problem Solving sup R. Memory modA - Endurance Good - Balance Good - Safety Awareness Fair QI SCORES: - Self-Care A. Eating 03-Partial/moderate assistance B. Oral hygiene 02-Substantial/maximal assistance C. Toileting hygiene 02-Substantial/maximal assistance E. Shower/bathe self 02-Substantial/maximal assistance F. Upper body dressing 03-Partial/moderate assistance G. Lower body dressing 02-Substantial/maximal assistance H. Putting on/taking off footwear 88-Not attempted due to medical condition or safety concerns - Mobility A. Roll left and right 03-Partial/moderate assistance B. Sit to lying 03-Partial/moderate assistance C. Lying to sitting on side of bed 03-Partial/moderate assistance D. Sit to stand 02-Substantial/maximal assistance E. Chair/[id number]-[id number] transfer 03-Partial/moderate assistance F. Toilet transfer 02-Substantial/maximal assistance G. Car transfer 88-Not attempted due to medical condition or safety concerns I. Walk 10 feet 03-Partial/moderate assistance J. Walk 50 feet with two turns 03-Partial/moderate assistance K. Walk 150 feet 88-Not attempted due to medical condition or safety concerns L. Walking 10 feet on uneven surfaces 88-Not attempted due to medical condition or safety concerns M. 1 step (curb) 88-Not attempted due to medical condition or safety concerns N. 4 steps 88-Not attempted due to medical condition or safety concerns O. 12 steps 88-Not attempted due to medical condition or safety concerns P. Picking up object 88-Not attempted due to medical condition or safety concerns R. Wheel 50 feet with two turns 88-Not attempted due to medical condition or safety concerns S. Wheel 150 feet 88-Not attempted due to medical condition or safety concerns - Bladder and Bowel Bladder continence Bowel continence - Endurance Fair - Balance Poor - Safety Awareness Fair CURRENT [facility]. DEFICITS: Self-Care, Mobility, Endurance, Balance, and Safety Awareness SIGNATURE PANEL: (CDT)
[2021-09-05] MEDS: GABAPENTIN 300 MG CAP PO SCH (20:58)
[2021-09-05] MEDS: TAMSULOSIN 0.4 MG SR CAP PO SCH (20:58)
[2021-09-05] MEDS: ATORVASTATIN 20 MG TAB PO SCH (20:58)
[2021-09-06 04:35] LABS: Absolute Lymphocytes (CBC) 2.5 K/uL (0.7-4.9); Hematocrit 40.2 % (36.0-45.0); Lymphocytes % 22.2 % (15.3-44.8); MCV 88.7 fL (80-100); MPV 7.7 fL (7.6-11.3); RBC Red Blood Cell Count 4.53 M/uL (3.86-4.86)
[2021-09-06 05:01] LABS: Albumin 2.8 g/dL (3.4-5.0); Potassium 3.6 mmol/L (3.5-5.1); Prealbumin 18.6 mg/dL (20-40)
[2021-09-06] MEDS: carvediloL 12.5 MG TAB PO SCH ×2 (06:25→17:15)
[2021-09-06] MEDS: [UNRECOGNIZED DRUG - OTHER] IH SCH ×2 (08:00→08:13)
[2021-09-06] MEDS: SPIRIVA RESPIMAT IH SCH ×2 (08:00→08:13)
[2021-09-06] MEDS: AMLODIPINE 5 MG TAB PO SCH (08:13)
[2021-09-06] MEDS: MEGESTROL 400 MG/10 ML UCUP PO SCH (08:13)
[2021-09-06] MEDS: ENSURE ENLIVE 237 ML CAN PO SCH ×3 (08:14→20:58)
[2021-09-06] MEDS: ANORO ELLIPTA IH SCH (08:14)
--- NOTE | 2021-09-06 09:42 | P.RH.PN ---
Estimated Length of Stay: 19 Expected Discharge Date: 09/20/21 Discharge Disposition Plan: Home Family Support: Yes Long-Term Goal: Mobility, Transfers, Self Care Vital Signs: Last Vital Signs Temp 96.8 F 09/06/21 08:25 Pulse 90 09/06/21 08:25 Resp 18 09/06/21 08:25 BP 126/76 09/06/21 08:25 Pulse Ox 98 09/06/21 08:25 Laboratory: Laboratory Last Values WBC 11.3 K/uL (4.3-10.9) H D 09/06/21 04:03 RBC 4.53 M/uL (3.86-4.86) 09/06/21 04:03 Hgb 14.1 g/dL (12.0-15.0) 09/06/21 04:03 Hct 40.2 % (36.0-45.0) 09/06/21 04:03 MCV 88.7 fL (80-100) D 09/06/21 04:03 MCH 31.2 pg (27.0-35.0) 09/06/21 04:03 MCHC 35.1 g/dL (32.0-36.0) 09/06/21 04:03 RDW 12.6 % (12.1-15.2) 09/06/21 04:03 Plt Count 355 K/uL (152-406) D 09/06/21 04:03 MPV 7.7 fL (7.6-11.3) 09/06/21 04:03 Neutrophils % 69.4 % (41.7-73.7) 09/06/21 04:03 Lymphocytes % 22.2 % (15.3-44.8) 09/06/21 04:03 Monocytes % 7.5 % (3.3-12.3) 09/06/21 04:03 Eosinophils % 0.6 % (0-4.4) 09/06/21 04:03 Basophils % 0.3 % (0-1.3) 09/06/21 04:03 Absolute Neutrophils 7.8 K/uL (1.8-8.0) 09/06/21 04:03 Absolute Lymphocytes 2.5 K/uL (0.7-4.9) 09/06/21 04:03 Absolute Monocytes 0.8 K/uL (0.1-1.3) 09/06/21 04:03 Absolute Eosinophils 0.1 K/uL (0-0.5) 09/06/21 04:03 Absolute Basophils 0.0 K/uL (0-0.5) 09/06/21 04:03 Sodium 133 mmol/L (136-145) L 09/06/21 04:03 Potassium 3.6 mmol/L (3.5-5.1) 09/06/21 04:03 Chloride 100 mmol/L (98-107) 09/06/21 04:03 Carbon Dioxide 27 mmol/L (21-32) 09/06/21 04:03 Anion Gap 9.6 mEq/L (5.0-15.0) 09/06/21 04:03 BUN 17 mg/dL (7-18) 09/06/21 04:03 Creatinine 0.57 mg/dL (0.55-1.3) 09/06/21 04:03 Est GFR (CKD-EPI) 98 ml/min (=/>90) 09/06/21 04:03 Glucose 115 mg/dL (74-106) H 09/06/21 04:03 Calcium 9.1 mg/dL (8.5-10.1) 09/06/21 04:03 Magnesium 2.0 mg/dL (1.8-2.4) 09/06/21 04:03 Albumin 2.8 g/dL (3.4-5.0) L 09/06/21 04:03 Prealbumin 18.6 mg/dL (20-40) L 09/06/21 04:03 Urine Color Yellow (Yellow) 09/03/21 16: Urine Appearance Turbid (Clear) 09/03/21 16: Urine pH 7.0 (5.0-7.0) 09/03/21 16:23 Ur Specific [place] 1.020 (1.005-1.030) 09/03/21 16:23 Glucose (UA)(Auto) Negative (Negative) 09/03/21 16: Urine Ketones Negative (Negative) 09/03/21 16: Urine Blood Negative (Negative) 09/03/21 16: Urine Nitrite Negative (Negative) 09/03/21 16: Urine Bilirubin Negative (Negative) 09/03/21 16: Urine Urobilinogen 2.0 mg/dL (0.2-1.0) H 09/03/21 16:23 Ur Leukocyte Esterase Negative (Negative) 09/03/21 16:23 Urine RBC <5 /HPF (NONE SEEN) 09/03/21 16:23 Urine WBC <5 /HPF (<5) 09/03/21 16:23 Ur Squamous Epith Cells 5-10 /HPF (NONE SEEN) H 09/03/21 16:23 Ur Urothelial Cells Cancelled 09/03/21 15:40 Calcium Oxalate Crystal Cancelled 09/03/21 15:40 Uric Acid Crystals Cancelled 09/03/21 15:40 Triple Phos Crystals Cancelled 09/03/21 15:40 Other Crystals Cancelled 09/03/21 15:40 Amorphous Sediment Cancelled 09/03/21 15:40 Glitter Cells Cancelled 09/03/21 15:40 Urine Bacteria <20 /HPF (<20) 09/03/21 16:23 Hyaline Casts Cancelled 09/03/21 15:40 Fine Granular Casts Cancelled 09/03/21 15:40 Coarse Granular Casts Cancelled 09/03/21 15:40 Waxy Casts Cancelled 09/03/21 15:40 RBC Casts Cancelled 09/03/21 15:40 WBC Casts Cancelled 09/03/21 15:40 Urine Mucus Cancelled 09/03/21 15:40 Urine Other Cancelled 09/03/21 15:40 Urine Trichomonas Cancelled 09/03/21 15:40 Urine Yeast Cancelled 09/03/21 15:40 Ur Yeast w Hyphae Cancelled 09/03/21 15:40 Urine Yeast (Budding) Cancelled 09/03/21 15:40 Urine Sperm Cancelled 09/03/21 15:40 Urine Culture Reflexed Not needed 09/03/21 16:23 Urine Total Volume Cancelled 09/03/21 15:40 Urine Total Protein Negative (Negative) 09/03/21 16:23 SARS-CoV-2 Rap RNA(RT-PCR) Cancelled 09/02/21 Unknown Weight: 133 lb Wound Present: No Closed Surgical Incision Present: No Negative Pressure Wound Therapy Present: No Physician Update: Labs reviewed. Head CT reviewed but prior scan not availabe. Max assistance to dependent with selfcare. Poor cognition is a limitation. Walked 250' min assistance and 75' needed verbal ques. Transfers needed verbal ques at mod assistance as well as sit to stands. Wheelchair 250' with mod assistance. Swallowing difficulties initiating swallowing. At increased risk for aspiration. Summary: Patient's care plan and senior living goals have been reviewed and revised as necessary. Please see the Rehabilitation Signature page for all necessary signatures.
--- NOTE | 2021-09-06 13:52 | RAD REPORT ---
EXAM DESCRIPTION: RAD - Chest Single View - 09/06/2021 1:43 pm CLINICAL HISTORY: Rule out pneumonia COMPARISON: No comparisons FINDINGS: Lines: None. Lungs: No evidence of edema or pneumonia. Pleural: No significant pleural effusions or pneumothorax. Cardiac: The heart size is within normal limits. Bones: No acute fractures. Other: IMPRESSION: No acute cardiopulmonary disease.
[2021-09-06] MEDS: CYCLOBENZAPRINE 10 MG TAB PO PRN (15:08)
[2021-09-06] MEDS: ATORVASTATIN 20 MG TAB PO SCH (20:58)
[2021-09-06] MEDS: TAMSULOSIN 0.4 MG SR CAP PO SCH (20:58)
[2021-09-06] MEDS: GABAPENTIN 300 MG CAP PO SCH (20:58)
[2021-09-07] MEDS: carvediloL 12.5 MG TAB PO SCH ×2 (05:29→17:20)
[2021-09-07] MEDS: MEGESTROL 400 MG/10 ML UCUP PO SCH (07:29)
[2021-09-07] MEDS: MAGNESIUM OXIDE 400 MG TAB PO SCH (07:29)
[2021-09-07] MEDS: [UNRECOGNIZED DRUG - OTHER] IH SCH (07:30)
[2021-09-07] MEDS: AMLODIPINE 5 MG TAB PO SCH (07:30)
[2021-09-07] MEDS: SPIRIVA RESPIMAT IH SCH (07:30)
[2021-09-07] MEDS: ANORO ELLIPTA IH SCH (07:31)
[2021-09-07] MEDS: ENSURE ENLIVE 237 ML CAN PO SCH ×3 (07:33→20:06)
[2021-09-07] MEDS: TIOTROPIUM 5 SPRAYS/INHALER IH SCH (10:03)
[2021-09-07] MEDS: CYCLOBENZAPRINE 10 MG TAB PO PRN (14:44)
[2021-09-07] MEDS ORDERED: levoFLOXacin 500 MG TAB PO ONE (18:00)
[2021-09-07] MEDS: GABAPENTIN 300 MG CAP PO SCH (20:06)
[2021-09-07] MEDS: DOCUSATE NA/SENNA CONC 1 TAB PO PRN (20:06)
[2021-09-07] MEDS: TAMSULOSIN 0.4 MG SR CAP PO SCH (20:06)
[2021-09-07] MEDS: ATORVASTATIN 20 MG TAB PO SCH (20:06)
[2021-09-08] MEDS: carvediloL 12.5 MG TAB PO SCH ×2 (05:23→18:57)
[2021-09-08] MEDS: ANORO ELLIPTA IH SCH (10:03)
[2021-09-08] MEDS: MEGESTROL 400 MG/10 ML UCUP PO SCH (10:03)
[2021-09-08] MEDS: TIOTROPIUM 5 SPRAYS/INHALER IH SCH (10:03)
[2021-09-08] MEDS: MAGNESIUM OXIDE 400 MG TAB PO SCH (10:04)
[2021-09-08] MEDS: levoFLOXacin 500 MG TAB PO SCH (10:04)
[2021-09-08] MEDS: AMLODIPINE 5 MG TAB PO SCH (10:04)
[2021-09-08] MEDS: ENSURE ENLIVE 237 ML CAN PO SCH ×3 (10:05→21:40)
[2021-09-08] MEDS: TAMSULOSIN 0.4 MG SR CAP PO SCH (21:40)
[2021-09-08] MEDS: GABAPENTIN 300 MG CAP PO SCH (21:41)
[2021-09-08] MEDS: DOCUSATE NA/SENNA CONC 1 TAB PO PRN (21:41)
[2021-09-08] MEDS: ATORVASTATIN 20 MG TAB PO SCH (21:41)
[2021-09-09] MEDS: carvediloL 12.5 MG TAB PO SCH ×2 (05:59→17:37)
[2021-09-09] MEDS: MEGESTROL 400 MG/10 ML UCUP PO SCH (08:43)
[2021-09-09] MEDS: MAGNESIUM OXIDE 400 MG TAB PO SCH (08:43)
[2021-09-09] MEDS: AMLODIPINE 5 MG TAB PO SCH (08:43)
[2021-09-09] MEDS: levoFLOXacin 500 MG TAB PO SCH (08:44)
[2021-09-09] MEDS: ENSURE ENLIVE 237 ML CAN PO SCH ×3 (08:45→19:10)
[2021-09-09] MEDS: TIOTROPIUM 5 SPRAYS/INHALER IH SCH (08:47)
[2021-09-09] MEDS: ANORO ELLIPTA IH SCH (08:49)
[2021-09-09] MEDS ORDERED: NA CHLORIDE 0.9% 1,000 ML IV SCH (12:00)
[2021-09-09] MEDS: ATORVASTATIN 20 MG TAB PO SCH (19:10)
[2021-09-09] MEDS: DOCUSATE NA/SENNA CONC 1 TAB PO PRN (19:10)
[2021-09-09] MEDS: GABAPENTIN 300 MG CAP PO SCH (19:10)
[2021-09-09] MEDS: TAMSULOSIN 0.4 MG SR CAP PO SCH (19:10)
[2021-09-10] MEDS: carvediloL 12.5 MG TAB PO SCH ×2 (05:20→17:37)
[2021-09-10 06:29] LABS: Absolute Lymphocytes (CBC) 2.1 K/uL (0.7-4.9); Hematocrit 39.3 % (36.0-45.0); Lymphocytes % 24.3 % (15.3-44.8); MCV 89.7 fL (80-100); MPV 7.3 fL (7.6-11.3); RBC Red Blood Cell Count 4.39 M/uL (3.86-4.86)
[2021-09-10 06:42] LABS: Magnesium 2.3 mg/dL (1.8-2.4); Potassium 3.6 mmol/L (3.5-5.1); Thyroid Stimulating Hormone 2.84 uIU/mL (0.360-3.740)
[2021-09-10] MEDS: MEGESTROL 400 MG/10 ML UCUP PO SCH (08:52)
[2021-09-10] MEDS: AMLODIPINE 5 MG TAB PO SCH (08:52)
[2021-09-10] MEDS: MAGNESIUM OXIDE 400 MG TAB PO SCH (08:54)
[2021-09-10] MEDS: levoFLOXacin 500 MG TAB PO SCH (08:54)
[2021-09-10] MEDS: ENSURE ENLIVE 237 ML CAN PO SCH ×3 (09:33→20:21)
[2021-09-10] MEDS: TIOTROPIUM 5 SPRAYS/INHALER IH SCH (09:34)
[2021-09-10] MEDS: ANORO ELLIPTA IH SCH (09:35)
[2021-09-10] MEDS ORDERED: BISACODYL 10 MG RECTAL SUPP PR ONE (13:09)
[2021-09-10] MEDS: GABAPENTIN 300 MG CAP PO SCH (20:21)
[2021-09-10] MEDS: TAMSULOSIN 0.4 MG SR CAP PO SCH (20:21)
[2021-09-10] MEDS: ATORVASTATIN 20 MG TAB PO SCH (20:21)
[2021-09-11] MEDS: carvediloL 12.5 MG TAB PO SCH ×2 (05:22→17:17)
[2021-09-11] MEDS: AMLODIPINE 5 MG TAB PO SCH (07:45)
[2021-09-11] MEDS: ENSURE ENLIVE 237 ML CAN PO SCH ×4 (07:45→19:30)
[2021-09-11] MEDS: levoFLOXacin 500 MG TAB PO SCH (07:45)
[2021-09-11] MEDS: MEGESTROL 400 MG/10 ML UCUP PO SCH (07:45)
[2021-09-11] MEDS: TIOTROPIUM 5 SPRAYS/INHALER IH SCH (07:46)
[2021-09-11] MEDS: ANORO ELLIPTA IH SCH (07:47)
[2021-09-11] MEDS: MAGNESIUM OXIDE 400 MG TAB PO SCH (10:19)
--- NOTE | 2021-09-11 11:00 | RAD REPORT ---
EXAM DESCRIPTION: CT - Head Brain Wo Cont - 09/11/2021 10:17 am CLINICAL HISTORY: R/O Stroke COMPARISON: Head Brain Wo Cont dated 09/04/2021 TECHNIQUE: Axial 5 mm thick images of the head were obtained without IV contrast. All CT scans are performed using dose optimization technique as appropriate and may include automated exposure control or mA/KV adjustment according to patient size. FINDINGS: Comparison exam has significant motion degradation. No intracranial hemorrhage has developed. The chronic right-sided subdural hematoma or subdural hygro ma is again noted. Approximately 7 mm of right to left midline shift is present. This is not grossly different from the September 04 study which had substantial motion degradation limitation. Decreased attenuation is seen in the right subfrontal region similar to the prior examination. Larger area diminished attenuation is present involving the majority of the left temporal lobe. Slight hype rdensity along the inferior aspect of the left temporal lobe could be a small amount of subarachnoid hemorrhage or cortical contusion. This is similar or less prominent than on the prior study. The temp oral lobe attenuation abnormality continues posteriorly into the parietal lobe and posterior left sub frontal region. On today's study there is a better visualization of the left cerebral hemisphere. Areas of diminished attenuation are scattered throughout the left frontal lobe and parietal lobe. Due to the severity of motion on the prior examination no adequate comparison can be made. The left frontal and parietal fi ndings were probably present September 04. Right lateral ventricle is smaller than the left. This has not changed. This could be normal asymmetr y or affects of the chronic subdural collection. Choroid plexus calcifications are present. Mastoid air cells and visualized portions of the paranasal sinuses are clear of acute finding. No acute bony findings. Left skull postsurgical changes noted. IMPRESSION: No new intracranial hemorrhage. Large areas of decreased attenuation are seen throughout most of the left cerebral hemisphere. Prior study comparison is limited due to the extent of motion on the prior examination. 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 The left temporal lobe focused abnormality can also be explained by left MCA infarction. However, the left MCA findings could potentially be from a mass lesion. Right-sided chronic subdural hematoma or subdural hygroma with 7 mm of right to left midline shift. T hese findings are not grossly different from September 04 motion degraded study.
--- NOTE | 2021-09-11 18:18 | R.PN ---
PROGRESS NOTES ENCOUNTER DATE AND TIME: 09/11/2021 18:10 (CDT) NAME Kenya Peace DATE OF : 1950 DATE OF ADMISSION: 09/01/2021 22:44 (CDT) Traumatic subdural hemorrhage with loss of consciousness of unspecified duration, initial encounter ( S06.5X9A)Acute traumatic subdural subarachnoid hemorrhageCHIEF COMPLAINT: Traumatic subdural hematoma, expressive and receptive aphasia SUBJECTIVE: Pt denied any Shortness of Breath. Pt denied any depression. CBC with diff and BMP are essentially normal. Covid-19 is negative, UA is negative but cultures show 4+ Alpha Strep. TSH, T4 and cortisol are normal. Electrolytes are normal. Head CT shows large left hemisphere attenuation showing either a large left hemispheric stroke or pos sible mass lesion. She did less overall today due to less responsiveness. Head CT noted able show known subdural hematom a. A comparison CT was not available. VITAL SIGNS Temperature: 97.8 F SBP/DBP: 100/63 Pulse: 93 to 112 Resp: 16 MEDICATION ALLERGIES: No Known Drug Allergies (NKDA) ENVIRONMENTAL ALLERGIES: - Substance Allergies None Known - Other Allergies None Known NURSING: - Shower allowing shower - Bladder care per protocol - Skin care per protocol PRECAUTIONS: - Aspiration Precaution 1 to 1 supervision with all po intake All meals in the dysphagia dining room No straws Seated at 90 degrees while eating and 30 minutes after meals - Fall Precaution 1 to 1 supervision Bed alarm TABS alarm Wheel chair alarm - R Clavicle NWB R UE ROM as tolerated R UE ACTIVITIES OOB only with supervision THERAPIES: - Dietary and Nutrition Adequate Nutrition. Nutritional Education. Nutritional Supplements. Evaluate and Treat. - Occupational Therapy Cognitive Retraining. Patient needs Occupational Therapy for a daily minimum of 1.5 hours at least 5 out of 7 days, to improve Activities of Daily Living, including: Eating, Grooming, Bathing, Dressing, Toileting, Toilet Transfers, Community Reintegration, Higher functional activities, Adaptive Equipme nt, Splinting, Household Tasks, and Other activities as determined. Visual Perceptual Training. Evalu ate and Treat. Patient/Family Education. ADL Training. Safety Awareness. Eating. Transfer Training. U E Strengthening. - Speech Therapy Cognitive Training. Expressive Language Skills. Memory Strategies. Patient needs Speech Therapy for a daily minimum of 1.5 hours at least 5 out of 7 days, to improve: Swallowing, Cognition, Language Ski lls, and Compensatory Strategies. Receptive Language Skills. Speech Intelligibility Training. Evaluat e and Treat. - Physical Therapy Patient needs Physical Therapy for a daily minimum of 1.5 hours at least 5 out of 7 days, to improve: Mobility, Strengthening, Transfers, Stretching, ROM, Endurance, Ability to manage stairs, Gait, and Balance. Balance Training. Gait Training. Safety Awareness. Transfer Training. Mobility Training. Pat ient/Family Education. LE Strengthening. PHYSICAL EXAM - Gen Alert and awake Lying in bed No apparent distress Oriented to: person, time, and place - Skin No skin breakdown. No abnormalities - Eyes No abnormalities - ENMT No abnormalities - Neck No abnormalities - CVS RRR - Chest No abnormalities - Resp No wheezing - Abd Soft - GI Non distended Deferred - No abnormalities - Ext No significant edema - MSK 4+/5 weakness in both lower extremities. - Neuro No focal deficits - Psych Mild confusion about situation. No psyhchosis. ASSESSMENT: Pt. is a 70 yo Right-handed female.On 08/26/2021 she was admitted to [facility] with diagnosis Traumatic subdural hemorrhage with loss of consciousness of unspecified duration, initial encounter ( S06.5X9A).Her impairment category is Brain Dysfunction 02 - Closed Injury (05.16).Pre-morbidly, Pt. was independent/mod-I in Locomotion, Safety Awareness, Social Cognition, Transfers Control, and Sherice ce; and she had good Sphincter Control, Self-Care, Communication, and Endurance.Currently, she has de ficits of Locomotion, Safety Awareness, Social Cognition, Balance, Transfers Control, Sphincter Contr ol, Self-Care, Endurance, and Communication.Pt. is now referred to [facility] for acute in-patient rehabilitation in order to maximize patient's functional independence in activit ies of daily living, strength, ROM, and mobility.- Rehab Goal Patient has realistic goal of being discharged at assistance level 5-sup to reside at Home with Pt s elf. MDM/PLAN: - Physical Therapy Gait dysfunction - to improve, our physical therapists will perform initial evaluation of pt's statu s upon admission and devise an individualized program for Gait Training, and Wheel Chair mobility Inability to transfer - to improve, our physical therapists will perform initial evaluation of pt's status upon admission and devise an individualized program for Bed mobility Need for home safety evaluation - to improve, our physical therapists will perform initial evaluatio n of pt's status upon admission and devise an individualized program for Home Evaluation Need in caregiver upon discharge - to improve, our physical therapists will perform initial evaluati on of pt's status upon admission and devise an individualized program for Caregiver Training New precaution - to improve, our physical therapists will perform initial evaluation of pt's status upon admission and devise an individualized program for Patient precaution education Edema - to improve, our physical therapists will perform initial evaluation of pt's status upon admi ssion and devise an individualized program for Elevation Training, and Lymphedema Therapy Poor balance - to improve, our physical therapists will perform initial evaluation of pt's status up on admission and devise an individualized program for Balance Training Poor endurance - to improve, our physical therapists will perform initial evaluation of pt's status upon admission and devise an individualized program for Endurance Training Weakness - to improve, our physical therapists will perform initial evaluation of pt's status upon a dmission and devise an individualized program for Aquatic Therapy, Neuromuscular Reeducation, and Str engthening Achieving independence - to improve, our physical therapists will perform initial evaluation of pt's status upon admission and devise an individualized program for Community Reintegration Activities - Occupational Therapy ADL deficits - to improve, our occupation therapists will perform initial evaluation of pt's status upon admission and devise an individualized program for Bathing, Bed mobility, Community Reintegratio n, Cooking, Dressing, Eating, Fine Motor Skills, Grooming, Homemaking, Kitchen Mobility, Laundry, Pat ient Education, Safety Awareness, Splinting - Positioning, Transfers(Toilet, Tub, Shower), and Wheel Chair Management Cognitive deficits - to improve, our occupation therapists will perform initial evaluation of pt's s tatus upon admission and devise an individualized program for Cognition - orientation Need for career technical education teacher - to improve, our occupation therapists will perform initial evaluation of pt's status upon admission and devise an individualized program for Caregiver Training Weakness - to improve, our occupation therapists will perform initial evaluation of pt's status upon admission and devise an individualized program for Aquatic Therapy, Balance, Endurance, UE ROM, and UE strengthening - Other See attached MAR (Medication Administration Record) - Diet Type Continue Regular - Diet - Liquid Texture Continue Regular - Tube Feed Continue N/A - Bladder care per protocol - Aspiration Precaution 1 to 1 supervision with all po intake All meals in the dysphagia dining room No straws Seated at 90 degrees while eating and 30 minutes after meals - Fall Precaution 1 to 1 supervision Bed alarm TABS alarm Wheel chair alarm - Skin care per protocol - Shower allowing shower - R Clavicle NWB R UE ROM as tolerated R UE FUNCTIONAL STATUS: UPDATED AT WEEKLY TEAM CONFERENCE - Bladder Same accident frequency: 7-Ind - No accidents in the past 7 days - Bowel Same accident frequency: 7-Ind - No accidents in the past 7 days - Walking Same score based on distance walked: 0(N/A) Same score based on distance walked: 2(50-149ft) - Wheelchair Same score based on distance traveled: 0(N/A) FUNCTIONAL STATUS: - Self-Care A. Eating Torres B. Grooming Torres C. Bathing Gabriella D. Dressing - Upper Gabriella E. Dressing - Lower modA F. Toileting Gabriella - Sphincter Control G. Bladder control Torres H. Bowel control Torres - Transfers Control I. Bed/Chair/Wheelchair sup J. Toilet sup K. Tub/Shower Gabriella - Locomotion L. Walk/Wheelchair (B) Gabriella M. Stairs maxA - Communication N. Comprehension (B) modA O. Expression (B) modA - Social Cognition P. Social Interaction Gabriella Q. Problem Solving sup R. Memory modA - Endurance Good - Balance Good - Safety Awareness Fair QI SCORES: - Self-Care A. Eating 03-Partial/moderate assistance B. Oral hygiene 02-Substantial/maximal assistance C. Toileting hygiene 02-Substantial/maximal assistance E. Shower/bathe self 02-Substantial/maximal assistance F. Upper body dressing 03-Partial/moderate assistance G. Lower body dressing 02-Substantial/maximal assistance H. Putting on/taking off footwear 88-Not attempted due to medical condition or safety concerns - Mobility A. Roll left and right 03-Partial/moderate assistance B. Sit to lying 03-Partial/moderate assistance C. Lying to sitting on side of bed 03-Partial/moderate assistance D. Sit to stand 02-Substantial/maximal assistance E. Chair/[id number] transfer 03-Partial/moderate assistance F. Toilet transfer 02-Substantial/maximal assistance G. Car transfer 88-Not attempted due to medical condition or safety concerns I. Walk 10 feet 03-Partial/moderate assistance J. Walk 50 feet with two turns 03-Partial/moderate assistance K. Walk 150 feet 88-Not attempted due to medical condition or safety concerns L. Walking 10 feet on uneven surfaces 88-Not attempted due to medical condition or safety concerns M. 1 step (curb) 88-Not attempted due to medical condition or safety concerns N. 4 steps 88-Not attempted due to medical condition or safety concerns O. 12 steps 88-Not attempted due to medical condition or safety concerns P. Picking up object 88-Not attempted due to medical condition or safety concerns R. Wheel 50 feet with two turns 88-Not attempted due to medical condition or safety concerns S. Wheel 150 feet 88-Not attempted due to medical condition or safety concerns - Bladder and Bowel Bladder continence Bowel continence - Endurance Fair - Balance Poor - Safety Awareness Fair [facility] DEFICITS: Self-Care, Mobility, Endurance, Balance, and Safety Awareness SIGNATURE PANEL: (CDT)
[2021-09-11] MEDS: TAMSULOSIN 0.4 MG SR CAP PO SCH (19:29)
[2021-09-11] MEDS: ATORVASTATIN 20 MG TAB PO SCH (19:30)
[2021-09-11] MEDS: GABAPENTIN 300 MG CAP PO SCH (19:30)
[2021-09-12] MEDS: carvediloL 12.5 MG TAB PO SCH ×2 (05:29→16:41)
[2021-09-12] MEDS: levoFLOXacin 750 MG TAB PO SCH (07:29)
[2021-09-12] MEDS: MEGESTROL 400 MG/10 ML UCUP PO SCH (07:29)
[2021-09-12] MEDS: AMLODIPINE 5 MG TAB PO SCH (07:29)
[2021-09-12] MEDS: ANORO ELLIPTA IH SCH (07:29)
[2021-09-12] MEDS: TIOTROPIUM 5 SPRAYS/INHALER IH SCH (07:30)
[2021-09-12] MEDS: ENSURE ENLIVE 237 ML CAN PO SCH ×3 (07:30→19:06)
[2021-09-12] MEDS: MAGNESIUM OXIDE 400 MG TAB PO SCH (08:49)
--- NOTE | 2021-09-12 17:54 | R.PN ---
PROGRESS NOTES ENCOUNTER DATE AND TIME: 09/12/2021 17:46 (CDT) NAME Kenya Peace DATE OF : 1950 DATE OF ADMISSION: 09/01/2021 22:44 (CDT) Traumatic subdural hemorrhage with loss of consciousness of unspecified duration, initial encounter ( S06.5X9A)Acute traumatic subdural subarachnoid hemorrhageCHIEF COMPLAINT: Traumatic subdural hematoma, expressive and receptive aphasia SUBJECTIVE: Pt denied any Shortness of Breath. Pt denied any depression. CBC with diff and BMP are essentially normal. Covid-19 is negative, UA is negative but cultures show 4+ Alpha Strep. TSH, T4 and cortisol are normal. Electrolytes are normal. She is more responsive today . Head CT noted large areas of decreased attenuation involving most of t he left hemisphere. 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 A jackson rison CT was not available. VITAL SIGNS Temperature: 97.9 F SBP/DBP: 116/64 Pulse: 95 to 101 Resp: 17 MEDICATION ALLERGIES: No Known Drug Allergies (NKDA) ENVIRONMENTAL ALLERGIES: - Substance Allergies None Known - Other Allergies None Known NURSING: - Shower allowing shower - Bladder care per protocol - Skin care per protocol PRECAUTIONS: - Aspiration Precaution 1 to 1 supervision with all po intake All meals in the dysphagia dining room No straws Seated at 90 degrees while eating and 30 minutes after meals - Fall Precaution 1 to 1 supervision Bed alarm TABS alarm Wheel chair alarm - R Clavicle NWB R UE ROM as tolerated R UE ACTIVITIES OOB only with supervision THERAPIES: - Dietary and Nutrition Adequate Nutrition. Nutritional Education. Nutritional Supplements. Evaluate and Treat. - Occupational Therapy Cognitive Retraining. Patient needs Occupational Therapy for a daily minimum of 1.5 hours at least 5 out of 7 days, to improve Activities of Daily Living, including: Eating, Grooming, Bathing, Dressing, Toileting, Toilet Transfers, Community Reintegration, Higher functional activities, Adaptive Equipme nt, Splinting, Household Tasks, and Other activities as determined. Visual Perceptual Training. Evalu ate and Treat. Patient/Family Education. ADL Training. Safety Awareness. Eating. Transfer Training. U E Strengthening. - Speech Therapy Cognitive Training. Expressive Language Skills. Memory Strategies. Patient needs Speech Therapy for a daily minimum of 1.5 hours at least 5 out of 7 days, to improve: Swallowing, Cognition, Language Ski lls, and Compensatory Strategies. Receptive Language Skills. Speech Intelligibility Training. Evaluat e and Treat. - Physical Therapy Patient needs Physical Therapy for a daily minimum of 1.5 hours at least 5 out of 7 days, to improve: Mobility, Strengthening, Transfers, Stretching, ROM, Endurance, Ability to manage stairs, Gait, and Balance. Balance Training. Gait Training. Safety Awareness. Transfer Training. Mobility Training. Pat ient/Family Education. LE Strengthening. PHYSICAL EXAM - Gen Alert and awake Lying in bed No apparent distress Oriented to: person, time, and place - Skin No skin breakdown. No abnormalities - Eyes No abnormalities - ENMT No abnormalities - Neck No abnormalities - CVS RRR - Chest No abnormalities - Resp No wheezing - Abd Soft - GI Non distended Deferred - No abnormalities - Ext No significant edema - MSK 4+/5 weakness in both lower extremities. - Neuro No focal deficits - Psych Mild confusion about situation. No psyhchosis. ASSESSMENT: Pt. is a 70 yo Right-handed female.On 08/26/2021 she was admitted to [facility] with diagnosis Traumatic subdural hemorrhage with loss of consciousness of unspecified duration, initial encounter ( S06.5X9A).Her impairment category is Brain Dysfunction 02 - Closed Injury (05.16).Pre-morbidly, Pt. was independent/mod-I in Locomotion, Safety Awareness, Social Cognition, Transfers Control, and Sherice ce; and she had good Sphincter Control, Self-Care, Communication, and Endurance.Currently, she has de ficits of Locomotion, Safety Awareness, Social Cognition, Balance, Transfers Control, Sphincter Contr ol, Self-Care, Endurance, and Communication.Pt. is now referred to [facility] for acute in-patient rehabilitation in order to maximize patient's functional independence in activit ies of daily living, strength, ROM, and mobility.- Rehab Goal Patient has realistic goal of being discharged at assistance level 5-sup to reside at Home with Pt s elf. MDM/PLAN: - Physical Therapy Gait dysfunction - to improve, our physical therapists will perform initial evaluation of pt's statu s upon admission and devise an individualized program for Gait Training, and Wheel Chair mobility Inability to transfer - to improve, our physical therapists will perform initial evaluation of pt's status upon admission and devise an individualized program for Bed mobility Need for home safety evaluation - to improve, our physical therapists will perform initial evaluatio n of pt's status upon admission and devise an individualized program for Home Evaluation Need in caregiver upon discharge - to improve, our physical therapists will perform initial evaluati on of pt's status upon admission and devise an individualized program for Caregiver Training New precaution - to improve, our physical therapists will perform initial evaluation of pt's status upon admission and devise an individualized program for Patient precaution education Edema - to improve, our physical therapists will perform initial evaluation of pt's status upon admi ssion and devise an individualized program for Elevation Training, and Lymphedema Therapy Poor balance - to improve, our physical therapists will perform initial evaluation of pt's status up on admission and devise an individualized program for Balance Training Poor endurance - to improve, our physical therapists will perform initial evaluation of pt's status upon admission and devise an individualized program for Endurance Training Weakness - to improve, our physical therapists will perform initial evaluation of pt's status upon a dmission and devise an individualized program for Aquatic Therapy, Neuromuscular Reeducation, and Str engthening Achieving independence - to improve, our physical therapists will perform initial evaluation of pt's status upon admission and devise an individualized program for Community Reintegration Activities - Occupational Therapy ADL deficits - to improve, our occupation therapists will perform initial evaluation of pt's status upon admission and devise an individualized program for Bathing, Bed mobility, Community Reintegratio n, Cooking, Dressing, Eating, Fine Motor Skills, Grooming, Homemaking, Kitchen Mobility, Laundry, Pat ient Education, Safety Awareness, Splinting - Positioning, Transfers(Toilet, Tub, Shower), and Wheel Chair Management Cognitive deficits - to improve, our occupation therapists will perform initial evaluation of pt's s tatus upon admission and devise an individualized program for Cognition - orientation Need for medicare biller - to improve, our occupation therapists will perform initial evaluation of pt's status upon admission and devise an individualized program for Caregiver Training Weakness - to improve, our occupation therapists will perform initial evaluation of pt's status upon admission and devise an individualized program for Aquatic Therapy, Balance, Endurance, UE ROM, and UE strengthening - Other See attached MAR (Medication Administration Record) - Diet Type Continue Regular - Diet - Liquid Texture Continue Regular - Tube Feed Continue N/A - Bladder care per protocol - Aspiration Precaution 1 to 1 supervision with all po intake All meals in the dysphagia dining room No straws Seated at 90 degrees while eating and 30 minutes after meals - Fall Precaution 1 to 1 supervision Bed alarm TABS alarm Wheel chair alarm - Skin care per protocol - Shower allowing shower - R Clavicle NWB R UE ROM as tolerated R UE FUNCTIONAL STATUS: UPDATED AT WEEKLY TEAM CONFERENCE - Bladder Same accident frequency: 7-Ind - No accidents in the past 7 days - Bowel Same accident frequency: 7-Ind - No accidents in the past 7 days - Walking Same score based on distance walked: 0(N/A) Same score based on distance walked: 2(50-149ft) - Wheelchair Same score based on distance traveled: 0(N/A) FUNCTIONAL STATUS: - Self-Care A. Eating Torres B. Grooming Torres C. Bathing Gabriella D. Dressing - Upper Gabriella E. Dressing - Lower modA F. Toileting Gabriella - Sphincter Control G. Bladder control Torres H. Bowel control Torres - Transfers Control I. Bed/Chair/Wheelchair sup J. Toilet sup K. Tub/Shower Gabriella - Locomotion L. Walk/Wheelchair (B) Gabriella M. Stairs maxA - Communication N. Comprehension (B) modA O. Expression (B) modA - Social Cognition P. Social Interaction Gabriella Q. Problem Solving sup R. Memory modA - Endurance Good - Balance Good - Safety Awareness Fair QI SCORES: - Self-Care A. Eating 03-Partial/moderate assistance B. Oral hygiene 02-Substantial/maximal assistance C. Toileting hygiene 02-Substantial/maximal assistance E. Shower/bathe self 02-Substantial/maximal assistance F. Upper body dressing 03-Partial/moderate assistance G. Lower body dressing 02-Substantial/maximal assistance H. Putting on/taking off footwear 88-Not attempted due to medical condition or safety concerns - Mobility A. Roll left and right 03-Partial/moderate assistance B. Sit to lying 03-Partial/moderate assistance C. Lying to sitting on side of bed 03-Partial/moderate assistance D. Sit to stand 02-Substantial/maximal assistance E. Chair/hfc-ak-orsta transfer 03-Partial/moderate assistance F. Toilet transfer 02-Substantial/maximal assistance G. Car transfer 88-Not attempted due to medical condition or safety concerns I. Walk 10 feet 03-Partial/moderate assistance J. Walk 50 feet with two turns 03-Partial/moderate assistance K. Walk 150 feet 88-Not attempted due to medical condition or safety concerns L. Walking 10 feet on uneven surfaces 88-Not attempted due to medical condition or safety concerns M. 1 step (curb) 88-Not attempted due to medical condition or safety concerns N. 4 steps 88-Not attempted due to medical condition or safety concerns O. 12 steps 88-Not attempted due to medical condition or safety concerns P. Picking up object 88-Not attempted due to medical condition or safety concerns R. Wheel 50 feet with two turns 88-Not attempted due to medical condition or safety concerns S. Wheel 150 feet 88-Not attempted due to medical condition or safety concerns - Bladder and Bowel Bladder continence Bowel continence - Endurance Fair - Balance Poor - Safety Awareness Fair [facility] DEFICITS: Self-Care, Mobility, Endurance, Balance, and Safety Awareness SIGNATURE PANEL: (CDT)
[2021-09-12] MEDS: CYCLOBENZAPRINE 10 MG TAB PO PRN (19:05)
[2021-09-12] MEDS: TAMSULOSIN 0.4 MG SR CAP PO SCH (19:06)
[2021-09-12] MEDS: HYDROCODONE/APAP 10/325 TAB PO PRN (19:06)
[2021-09-12] MEDS: DOCUSATE NA/SENNA CONC 1 TAB PO PRN (19:06)
[2021-09-12] MEDS: ATORVASTATIN 20 MG TAB PO SCH (19:06)
[2021-09-12] MEDS: GABAPENTIN 300 MG CAP PO SCH (19:06)
[2021-09-13] MEDS: carvediloL 12.5 MG TAB PO SCH ×2 (05:40→17:23)
[2021-09-13] MEDS: AMLODIPINE 5 MG TAB PO SCH (07:51)
[2021-09-13] MEDS: MAGNESIUM OXIDE 400 MG TAB PO SCH (07:51)
[2021-09-13] MEDS: MEGESTROL 400 MG/10 ML UCUP PO SCH (07:51)
[2021-09-13] MEDS: TIOTROPIUM 5 SPRAYS/INHALER IH SCH (07:54)
[2021-09-13] MEDS: levoFLOXacin 750 MG TAB PO SCH (07:54)
[2021-09-13] MEDS: ANORO ELLIPTA IH SCH (07:54)
[2021-09-13] MEDS: ENSURE ENLIVE 237 ML CAN PO SCH ×3 (08:04→20:04)
--- NOTE | 2021-09-13 17:44 | R.PN ---
PROGRESS NOTES ENCOUNTER DATE AND TIME: 09/13/2021 17:38 (CDT) NAME Kenya Peace DATE OF : 1950 DATE OF ADMISSION: 09/01/2021 22:44 (CDT) Traumatic subdural hemorrhage with loss of consciousness of unspecified duration, initial encounter ( S06.5X9A)Acute traumatic subdural subarachnoid hemorrhageCHIEF COMPLAINT: Traumatic subdural hematoma, expressive and receptive aphasia SUBJECTIVE: Pt denied any Shortness of Breath. Pt denied any depression. CBC with diff and BMP are essentially normal. Covid-19 is negative, UA is negative but cultures show 4+ Alpha Strep. TSH, T4 and cortisol are normal. Electrolytes are normal. She is more responsive today . Head CT noted large areas of decreased attenuation involving most of t he left hemisphere. 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 Self-propelled 250' with minimum assistance. VITAL SIGNS Temperature: 97.0 F SBP/DBP: 110/72 Pulse: 97 Resp: 16 MEDICATION ALLERGIES: No Known Drug Allergies (NKDA) ENVIRONMENTAL ALLERGIES: - Substance Allergies None Known - Other Allergies None Known NURSING: - Shower allowing shower - Bladder care per protocol - Skin care per protocol PRECAUTIONS: - Aspiration Precaution 1 to 1 supervision with all po intake All meals in the dysphagia dining room No straws Seated at 90 degrees while eating and 30 minutes after meals - Fall Precaution 1 to 1 supervision Bed alarm TABS alarm Wheel chair alarm - R Clavicle NWB R UE ROM as tolerated R UE ACTIVITIES OOB only with supervision THERAPIES: - Dietary and Nutrition Adequate Nutrition. Nutritional Education. Nutritional Supplements. Evaluate and Treat. - Occupational Therapy Cognitive Retraining. Patient needs Occupational Therapy for a daily minimum of 1.5 hours at least 5 out of 7 days, to improve Activities of Daily Living, including: Eating, Grooming, Bathing, Dressing, Toileting, Toilet Transfers, Community Reintegration, Higher functional activities, Adaptive Equipme nt, Splinting, Household Tasks, and Other activities as determined. Visual Perceptual Training. Evalu ate and Treat. Patient/Family Education. ADL Training. Safety Awareness. Eating. Transfer Training. U E Strengthening. - Speech Therapy Cognitive Training. Expressive Language Skills. Memory Strategies. Patient needs Speech Therapy for a daily minimum of 1.5 hours at least 5 out of 7 days, to improve: Swallowing, Cognition, Language Ski lls, and Compensatory Strategies. Receptive Language Skills. Speech Intelligibility Training. Evaluat e and Treat. - Physical Therapy Patient needs Physical Therapy for a daily minimum of 1.5 hours at least 5 out of 7 days, to improve: Mobility, Strengthening, Transfers, Stretching, ROM, Endurance, Ability to manage stairs, Gait, and Balance. Balance Training. Gait Training. Safety Awareness. Transfer Training. Mobility Training. Pat ient/Family Education. LE Strengthening. PHYSICAL EXAM - Gen Alert and awake Lying in bed No apparent distress Oriented to: person, time, and place - Skin No skin breakdown. No abnormalities - Eyes No abnormalities - ENMT No abnormalities - Neck No abnormalities - CVS RRR - Chest No abnormalities - Resp No wheezing - Abd Soft - GI Non distended Deferred - No abnormalities - Ext No significant edema - MSK 4+/5 weakness in both lower extremities. - Neuro No focal deficits - Psych Mild confusion about situation. No psyhchosis. ASSESSMENT: Pt. is a 70 yo Right-handed female.On 08/26/2021 she was admitted to [facility] with diagnosis Traumatic subdural hemorrhage with loss of consciousness of unspecified duration, initial encounter ( S06.5X9A).Her impairment category is Brain Dysfunction 02 - Closed Injury (02.).Pre-morbidly, Pt. was independent/mod-I in Locomotion, Safety Awareness, Social Cognition, Transfers Control, and Sherice ce; and she had good Sphincter Control, Self-Care, Communication, and Endurance.Currently, she has de ficits of Locomotion, Safety Awareness, Social Cognition, Balance, Transfers Control, Sphincter Contr ol, Self-Care, Endurance, and Communication.Pt. is now referred to [facility] for acute in-patient rehabilitation in order to maximize patient's functional independence in activit ies of daily living, strength, ROM, and mobility.- Rehab Goal Patient has realistic goal of being discharged at assistance level 5-sup to reside at Home with Pt s elf. MDM/PLAN: - Physical Therapy Gait dysfunction - to improve, our physical therapists will perform initial evaluation of pt's statu s upon admission and devise an individualized program for Gait Training, and Wheel Chair mobility Inability to transfer - to improve, our physical therapists will perform initial evaluation of pt's status upon admission and devise an individualized program for Bed mobility Need for home safety evaluation - to improve, our physical therapists will perform initial evaluatio n of pt's status upon admission and devise an individualized program for Home Evaluation Need in caregiver upon discharge - to improve, our physical therapists will perform initial evaluati on of pt's status upon admission and devise an individualized program for Caregiver Training New precaution - to improve, our physical therapists will perform initial evaluation of pt's status upon admission and devise an individualized program for Patient precaution education Edema - to improve, our physical therapists will perform initial evaluation of pt's status upon admi ssion and devise an individualized program for Elevation Training, and Lymphedema Therapy Poor balance - to improve, our physical therapists will perform initial evaluation of pt's status up on admission and devise an individualized program for Balance Training Poor endurance - to improve, our physical therapists will perform initial evaluation of pt's status upon admission and devise an individualized program for Endurance Training Weakness - to improve, our physical therapists will perform initial evaluation of pt's status upon a dmission and devise an individualized program for Aquatic Therapy, Neuromuscular Reeducation, and Str engthening Achieving independence - to improve, our physical therapists will perform initial evaluation of pt's status upon admission and devise an individualized program for Community Reintegration Activities - Occupational Therapy ADL deficits - to improve, our occupation therapists will perform initial evaluation of pt's status upon admission and devise an individualized program for Bathing, Bed mobility, Community Reintegratio n, Cooking, Dressing, Eating, Fine Motor Skills, Grooming, Homemaking, Kitchen Mobility, Laundry, Pat ient Education, Safety Awareness, Splinting - Positioning, Transfers(Toilet, Tub, Shower), and Wheel Chair Management Cognitive deficits - to improve, our occupation therapists will perform initial evaluation of pt's s tatus upon admission and devise an individualized program for Cognition - orientation Need for care professional - to improve, our occupation therapists will perform initial evaluation of pt's status upon admission and devise an individualized program for Caregiver Training Weakness - to improve, our occupation therapists will perform initial evaluation of pt's status upon admission and devise an individualized program for Aquatic Therapy, Balance, Endurance, UE ROM, and UE strengthening - Other See attached MAR (Medication Administration Record) - Diet Type Continue Regular - Diet - Liquid Texture Continue Regular - Tube Feed Continue N/A - Bladder care per protocol - Aspiration Precaution 1 to 1 supervision with all po intake All meals in the dysphagia dining room No straws Seated at 90 degrees while eating and 30 minutes after meals - Fall Precaution 1 to 1 supervision Bed alarm TABS alarm Wheel chair alarm - Skin care per protocol - Shower allowing shower - R Clavicle NWB R UE ROM as tolerated R UE FUNCTIONAL STATUS: UPDATED AT WEEKLY TEAM CONFERENCE - Bladder Same accident frequency: 7-Ind - No accidents in the past 7 days - Bowel Same accident frequency: 7-Ind - No accidents in the past 7 days - Walking Same score based on distance walked: 0(N/A) Same score based on distance walked: 2(50-149ft) - Wheelchair Same score based on distance traveled: 0(N/A) FUNCTIONAL STATUS: - Self-Care A. Eating Torres B. Grooming Torres C. Bathing Gabriella D. Dressing - Upper Gabriella E. Dressing - Lower modA F. Toileting Gabriella - Sphincter Control G. Bladder control Torres H. Bowel control Torres - Transfers Control I. Bed/Chair/Wheelchair sup J. Toilet sup K. Tub/Shower Gabriella - Locomotion L. Walk/Wheelchair (B) Gabriella M. Stairs maxA - Communication N. Comprehension (B) modA O. Expression (B) modA - Social Cognition P. Social Interaction Gabriella Q. Problem Solving sup R. Memory modA - Endurance Good - Balance Good - Safety Awareness Fair QI SCORES: - Self-Care A. Eating 03-Partial/moderate assistance B. Oral hygiene 02-Substantial/maximal assistance C. Toileting hygiene 02-Substantial/maximal assistance E. Shower/bathe self 02-Substantial/maximal assistance F. Upper body dressing 03-Partial/moderate assistance G. Lower body dressing 02-Substantial/maximal assistance H. Putting on/taking off footwear 88-Not attempted due to medical condition or safety concerns - Mobility A. Roll left and right 03-Partial/moderate assistance B. Sit to lying 03-Partial/moderate assistance C. Lying to sitting on side of bed 03-Partial/moderate assistance D. Sit to stand 02-Substantial/maximal assistance E. Chair/bne-kt-jnnwh transfer 03-Partial/moderate assistance F. Toilet transfer 02-Substantial/maximal assistance G. Car transfer 88-Not attempted due to medical condition or safety concerns I. Walk 10 feet 03-Partial/moderate assistance J. Walk 50 feet with two turns 03-Partial/moderate assistance K. Walk 150 feet 88-Not attempted due to medical condition or safety concerns L. Walking 10 feet on uneven surfaces 88-Not attempted due to medical condition or safety concerns M. 1 step (curb) 88-Not attempted due to medical condition or safety concerns N. 4 steps 88-Not attempted due to medical condition or safety concerns O. 12 steps 88-Not attempted due to medical condition or safety concerns P. Picking up object 88-Not attempted due to medical condition or safety concerns R. Wheel 50 feet with two turns 88-Not attempted due to medical condition or safety concerns S. Wheel 150 feet 88-Not attempted due to medical condition or safety concerns - Bladder and Bowel Bladder continence Bowel continence - Endurance Fair - Balance Poor - Safety Awareness Fair [facility] DEFIC[facility]: Self-Care, Mobility, Endurance, Balance, and Safety Awareness SIGNATURE PANEL: (CDT)
[2021-09-13] MEDS: TAMSULOSIN 0.4 MG SR CAP PO SCH (20:04)
[2021-09-13] MEDS: GABAPENTIN 300 MG CAP PO SCH (20:04)
[2021-09-13] MEDS: ATORVASTATIN 20 MG TAB PO SCH (20:04)
[2021-09-13] MEDS: clonazePAM 0.5 MG TAB PO PRN (21:38)
[2021-09-14] MEDS: carvediloL 12.5 MG TAB PO SCH ×2 (05:09→17:21)
[2021-09-14] MEDS: MAGNESIUM OXIDE 400 MG TAB PO SCH (07:18)
[2021-09-14] MEDS: MEGESTROL 400 MG/10 ML UCUP PO SCH (07:18)
[2021-09-14 07:41] LABS: Absolute Lymphocytes (CBC) 2.7 K/uL (0.7-4.9); Hematocrit 35.1 % (36.0-45.0); Lymphocytes % 29.3 % (15.3-44.8); MCV 89.6 fL (80-100); MPV 7.4 fL (7.6-11.3); RBC Red Blood Cell Count 3.91 M/uL (3.86-4.86)
[2021-09-14 07:56] LABS: Magnesium 2.1 mg/dL (1.8-2.4); Potassium 3.6 mmol/L (3.5-5.1); Prealbumin 21.1 mg/dL (20-40)
[2021-09-14] MEDS: AMLODIPINE 5 MG TAB PO SCH (09:15)
[2021-09-14] MEDS: levoFLOXacin 750 MG TAB PO SCH (09:17)
[2021-09-14] MEDS: TIOTROPIUM 5 SPRAYS/INHALER IH SCH (09:17)
[2021-09-14] MEDS: ANORO ELLIPTA IH SCH (09:17)
[2021-09-14] MEDS: ENSURE ENLIVE 237 ML CAN PO SCH ×3 (09:25→19:35)
--- NOTE | 2021-09-14 18:12 | R.PN ---
PROGRESS NOTES ENCOUNTER DATE AND TIME: 09/14/2021 18:09 (CDT) NAME Kenya Peace DATE OF : 1950 DATE OF ADMISSION: 09/01/2021 22:44 (CDT) Traumatic subdural hemorrhage with loss of consciousness of unspecified duration, initial encounter ( S06.5X9A)Acute traumatic subdural subarachnoid hemorrhageCHIEF COMPLAINT: Traumatic subdural hematoma, expressive and receptive aphasia SUBJECTIVE: Pt denied any Shortness of Breath. Pt denied any depression. CBC with diff and BMP are essentially normal. Covid-19 is negative, UA is negative but cultures show 4+ Alpha Strep. TSH, T4 and cortisol are normal. Electrolytes are normal. She is more responsive today . Head CT noted large areas of decreased attenuation involving most of t he left hemisphere. 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 Self-propelled 250' with minimum assistance. VITAL SIGNS Temperature: 97.2 F SBP/DBP: 108/64 Pulse: 90 Resp: 16 MEDICATION ALLERGIES: No Known Drug Allergies (NKDA) ENVIRONMENTAL ALLERGIES: - Substance Allergies None Known - Other Allergies None Known NURSING: - Shower allowing shower - Bladder care per protocol - Skin care per protocol PRECAUTIONS: - Aspiration Precaution 1 to 1 supervision with all po intake All meals in the dysphagia dining room No straws Seated at 90 degrees while eating and 30 minutes after meals - Fall Precaution 1 to 1 supervision Bed alarm TABS alarm Wheel chair alarm - R Clavicle NWB R UE ROM as tolerated R UE ACTIVITIES OOB only with supervision THERAPIES: - Dietary and Nutrition Adequate Nutrition. Nutritional Education. Nutritional Supplements. Evaluate and Treat. - Occupational Therapy Cognitive Retraining. Patient needs Occupational Therapy for a daily minimum of 1.5 hours at least 5 out of 7 days, to improve Activities of Daily Living, including: Eating, Grooming, Bathing, Dressing, Toileting, Toilet Transfers, Community Reintegration, Higher functional activities, Adaptive Equipme nt, Splinting, Household Tasks, and Other activities as determined. Visual Perceptual Training. Evalu ate and Treat. Patient/Family Education. ADL Training. Safety Awareness. Eating. Transfer Training. U E Strengthening. - Speech Therapy Cognitive Training. Expressive Language Skills. Memory Strategies. Patient needs Speech Therapy for a daily minimum of 1.5 hours at least 5 out of 7 days, to improve: Swallowing, Cognition, Language Ski lls, and Compensatory Strategies. Receptive Language Skills. Speech Intelligibility Training. Evaluat e and Treat. - Physical Therapy Patient needs Physical Therapy for a daily minimum of 1.5 hours at least 5 out of 7 days, to improve: Mobility, Strengthening, Transfers, Stretching, ROM, Endurance, Ability to manage stairs, Gait, and Balance. Balance Training. Gait Training. Safety Awareness. Transfer Training. Mobility Training. Pat ient/Family Education. LE Strengthening. PHYSICAL EXAM - Gen Alert and awake Lying in bed No apparent distress Oriented to: person, time, and place - Skin No skin breakdown. No abnormalities - Eyes No abnormalities - ENMT No abnormalities - Neck No abnormalities - CVS RRR - Chest No abnormalities - Resp No wheezing - Abd Soft - GI Non distended Deferred - No abnormalities - Ext No significant edema - MSK 4+/5 weakness in both lower extremities. - Neuro No focal deficits - Psych Mild confusion about situation. No psyhchosis. ASSESSMENT: Pt. is a 70 yo Right-handed female.On 08/26/2021 she was admitted to [facility] with diagnosis Traumatic subdural hemorrhage with loss of consciousness of unspecified duration, initial encounter ( S06.5X9A).Her impairment category is Brain Dysfunction 02 - Closed Injury (02.).Pre-morbidly, Pt. was independent/mod-I in Locomotion, Safety Awareness, Social Cognition, Transfers Control, and Sherice ce; and she had good Sphincter Control, Self-Care, Communication, and Endurance.Currently, she has de ficits of Locomotion, Safety Awareness, Social Cognition, Balance, Transfers Control, Sphincter Contr ol, Self-Care, Endurance, and Communication.Pt. is now referred to [facility] for acute in-patient rehabilitation in order to maximize patient's functional independence in activit ies of daily living, strength, ROM, and mobility.- Rehab Goal Patient has realistic goal of being discharged at assistance level 5-sup to reside at Home with Pt s elf. MDM/PLAN: - Physical Therapy Gait dysfunction - to improve, our physical therapists will perform initial evaluation of pt's statu s upon admission and devise an individualized program for Gait Training, and Wheel Chair mobility Inability to transfer - to improve, our physical therapists will perform initial evaluation of pt's status upon admission and devise an individualized program for Bed mobility Need for home safety evaluation - to improve, our physical therapists will perform initial evaluatio n of pt's status upon admission and devise an individualized program for Home Evaluation Need in caregiver upon discharge - to improve, our physical therapists will perform initial evaluati on of pt's status upon admission and devise an individualized program for Caregiver Training New precaution - to improve, our physical therapists will perform initial evaluation of pt's status upon admission and devise an individualized program for Patient precaution education Edema - to improve, our physical therapists will perform initial evaluation of pt's status upon admi ssion and devise an individualized program for Elevation Training, and Lymphedema Therapy Poor balance - to improve, our physical therapists will perform initial evaluation of pt's status up on admission and devise an individualized program for Balance Training Poor endurance - to improve, our physical therapists will perform initial evaluation of pt's status upon admission and devise an individualized program for Endurance Training Weakness - to improve, our physical therapists will perform initial evaluation of pt's status upon a dmission and devise an individualized program for Aquatic Therapy, Neuromuscular Reeducation, and Str engthening Achieving independence - to improve, our physical therapists will perform initial evaluation of pt's status upon admission and devise an individualized program for Community Reintegration Activities - Occupational Therapy ADL deficits - to improve, our occupation therapists will perform initial evaluation of pt's status upon admission and devise an individualized program for Bathing, Bed mobility, Community Reintegratio n, Cooking, Dressing, Eating, Fine Motor Skills, Grooming, Homemaking, Kitchen Mobility, Laundry, Pat ient Education, Safety Awareness, Splinting - Positioning, Transfers(Toilet, Tub, Shower), and Wheel Chair Management Cognitive deficits - to improve, our occupation therapists will perform initial evaluation of pt's s tatus upon admission and devise an individualized program for Cognition - orientation Need for hospice spiritual care coordinator - to improve, our occupation therapists will perform initial evaluation of pt's status upon admission and devise an individualized program for Caregiver Training Weakness - to improve, our occupation therapists will perform initial evaluation of pt's status upon admission and devise an individualized program for Aquatic Therapy, Balance, Endurance, UE ROM, and UE strengthening - Other See attached MAR (Medication Administration Record) - Diet Type Continue Regular - Diet - Liquid Texture Continue Regular - Tube Feed Continue N/A - Bladder care per protocol - Aspiration Precaution 1 to 1 supervision with all po intake All meals in the dysphagia dining room No straws Seated at 90 degrees while eating and 30 minutes after meals - Fall Precaution 1 to 1 supervision Bed alarm TABS alarm Wheel chair alarm - Skin care per protocol - Shower allowing shower - R Clavicle NWB R UE ROM as tolerated R UE FUNCTIONAL STATUS: UPDATED AT WEEKLY TEAM CONFERENCE - Bladder Same accident frequency: 7-Ind - No accidents in the past 7 days - Bowel Same accident frequency: 7-Ind - No accidents in the past 7 days - Walking Same score based on distance walked: 0(N/A) Same score based on distance walked: 2(50-149ft) - Wheelchair Same score based on distance traveled: 0(N/A) FUNCTIONAL STATUS: - Self-Care A. Eating Torres B. Grooming Torres C. Bathing Gabriella D. Dressing - Upper Garbiella E. Dressing - Lower modA F. Toileting Gabriella - Sphincter Control G. Bladder control Torres H. Bowel control Torres - Transfers Control I. Bed/Chair/Wheelchair sup J. Toilet sup K. Tub/Shower Gabriella - Locomotion L. Walk/Wheelchair (B) Gabriella M. Stairs maxA - Communication N. Comprehension (B) modA O. Expression (B) modA - Social Cognition P. Social Interaction Gabriella Q. Problem Solving sup R. Memory modA - Endurance Good - Balance Good - Safety Awareness Fair QI SCORES: - Self-Care A. Eating 03-Partial/moderate assistance B. Oral hygiene 02-Substantial/maximal assistance C. Toileting hygiene 02-Substantial/maximal assistance E. Shower/bathe self 02-Substantial/maximal assistance F. Upper body dressing 03-Partial/moderate assistance G. Lower body dressing 02-Substantial/maximal assistance H. Putting on/taking off footwear 88-Not attempted due to medical condition or safety concerns - Mobility A. Roll left and right 03-Partial/moderate assistance B. Sit to lying 03-Partial/moderate assistance C. Lying to sitting on side of bed 03-Partial/moderate assistance D. Sit to stand 02-Substantial/maximal assistance E. Chair/[id number] transfer 03-Partial/moderate assistance F. Toilet transfer 02-Substantial/maximal assistance G. Car transfer 88-Not attempted due to medical condition or safety concerns I. Walk 10 feet 03-Partial/moderate assistance J. Walk 50 feet with two turns 03-Partial/moderate assistance K. Walk 150 feet 88-Not attempted due to medical condition or safety concerns L. Walking 10 feet on uneven surfaces 88-Not attempted due to medical condition or safety concerns M. 1 step (curb) 88-Not attempted due to medical condition or safety concerns N. 4 steps 88-Not attempted due to medical condition or safety concerns O. 12 steps 88-Not attempted due to medical condition or safety concerns P. Picking up object 88-Not attempted due to medical condition or safety concerns R. Wheel 50 feet with two turns 88-Not attempted due to medical condition or safety concerns S. Wheel 150 feet 88-Not attempted due to medical condition or safety concerns - Bladder and Bowel Bladder continence Bowel continence - Endurance Fair - Balance Poor - Safety Awareness Fair [facility] DEFICITS: Self-Care, Mobility, Endurance, Balance, and Safety Awareness SIGNATURE PANEL: (CDT)
[2021-09-14] MEDS: TAMSULOSIN 0.4 MG SR CAP PO SCH (19:12)
[2021-09-14] MEDS: GABAPENTIN 300 MG CAP PO SCH (19:12)
[2021-09-14] MEDS: ATORVASTATIN 20 MG TAB PO SCH (19:12)
[2021-09-14] MEDS: clonazePAM 0.5 MG TAB PO PRN (19:12)
[2021-09-15] MEDS: carvediloL 12.5 MG TAB PO SCH ×2 (05:13→18:48)
[2021-09-15] MEDS: ANORO ELLIPTA IH SCH (07:58)
[2021-09-15] MEDS: TIOTROPIUM 5 SPRAYS/INHALER IH SCH (07:59)
[2021-09-15] MEDS: MAGNESIUM OXIDE 400 MG TAB PO SCH (07:59)
[2021-09-15] MEDS: AMLODIPINE 5 MG TAB PO SCH (07:59)
[2021-09-15] MEDS: MEGESTROL 400 MG/10 ML UCUP PO SCH (07:59)
[2021-09-15] MEDS: levoFLOXacin 750 MG TAB PO SCH (08:00)
[2021-09-15] MEDS: ENSURE ENLIVE 237 ML CAN PO SCH ×3 (08:00→19:21)
--- NOTE | 2021-09-15 09:39 | P.RH.PN ---
Estimated Length of Stay: 19 Expected Discharge Date: 09/20/21 Discharge Disposition Plan: Home Family Support: Yes [facility] Goal: Mobility, Transfers, Self Care Vital Signs: Last Vital Signs Temp 97.8 F 09/14/21 21:20 Pulse 100 H 09/15/21 07:59 Resp 18 09/14/21 21:20 BP 105/67 09/15/21 07:59 Pulse Ox 99 09/14/21 21:20 Laboratory: Laboratory Last Values WBC 9.1 K/uL (4.3-10.9) 09/14/21 06:58 RBC 3.91 M/uL (3.86-4.86) 09/14/21 06:58 Hgb 12.5 g/dL (12.0-15.0) 09/14/21 06:58 Hct 35.1 % (36.0-45.0) L 09/14/21 06:58 MCV 89.6 fL (80-100) 09/14/21 06:58 MCH 32.0 pg (27.0-35.0) 09/14/21 06:58 MCHC 35.7 g/dL (32.0-36.0) 09/14/21 06:58 RDW 12.5 % (12.1-15.2) 09/14/21 06:58 Plt Count 285 K/uL (152-406) 09/14/21 06:58 MPV 7.4 fL (7.6-11.3) L 09/14/21 06:58 Neutrophils % 63.0 % (41.7-73.7) 09/14/21 06:58 Lymphocytes % 29.3 % (15.3-44.8) 09/14/21 06:58 Monocytes % 6.3 % (3.3-12.3) 09/14/21 06:58 Eosinophils % 1.0 % (0-4.4) 09/14/21 06:58 Basophils % 0.4 % (0-1.3) 09/14/21 06:58 Absolute Neutrophils 5.7 K/uL (1.8-8.0) 09/14/21 06:58 Absolute Lymphocytes 2.7 K/uL (0.7-4.9) 09/14/21 06:58 Absolute Monocytes 0.6 K/uL (0.1-1.3) 09/14/21 06:58 Absolute Eosinophils 0.1 K/uL (0-0.5) 09/14/21 06:58 Absolute Basophils 0.0 K/uL (0-0.5) 09/14/21 06:58 Sodium 137 mmol/L (136-145) 09/14/21 06:58 Potassium 3.6 mmol/L (3.5-5.1) 09/14/21 06:58 Chloride 105 mmol/L (98-107) 09/14/21 06:58 Carbon Dioxide 26 mmol/L (21-32) 09/14/21 06:58 Anion Gap 9.6 mEq/L (5.0-15.0) 09/14/21 06:58 BUN 19 mg/dL (7-18) H 09/14/21 06:58 Creatinine 0.64 mg/dL (0.55-1.3) 09/14/21 06:58 Est GFR (CKD-EPI) 96 ml/min (=/>90) 09/14/21 06:58 Glucose 99 mg/dL (74-106) 09/14/21 06:58 Calcium 9.1 mg/dL (8.5-10.1) 09/14/21 06:58 Magnesium 2.1 mg/dL (1.8-2.4) 09/14/21 06:58 Albumin 3.0 g/dL (3.4-5.0) L 09/14/21 06:58 Prealbumin 21.1 mg/dL (20-40) 09/14/21 06:58 TSH 2.840 uIU/mL (0.360-3.740) 09/10/21 06:00 Free T4 1.44 ng/dL (0.76-1.46) 09/10/21 06:00 Cortisol 14.01 ug/dL (SEE COMMENT) 09/10/21 06:00 Urine Color Yellow (Yellow) 09/03/21 16: Urine Appearance Turbid (Clear) 09/03/21 16:23 Urine pH 7.0 (5.0-7.0) 09/03/21 16:23 Ur Specific [place] 1.020 (1.005-1.030) 09/03/21 16:23 Glucose (UA)(Auto) Negative (Negative) 09/03/21 16:23 Urine Ketones Negative (Negative) 09/03/21 16:23 Urine Blood Negative (Negative) 09/03/21 16:23 Urine Nitrite Negative (Negative) 09/03/21 16:23 Urine Bilirubin Negative (Negative) 09/03/21 16:23 Urine Urobilinogen 2.0 mg/dL (0.2-1.0) H 09/03/21 16:23 Ur Leukocyte Esterase Negative (Negative) 09/03/21 16:23 Urine RBC <5 /HPF (NONE SEEN) 09/03/21 16:23 Urine WBC <5 /HPF (<5) 09/03/21 16:23 Ur Squamous Epith Cells 5-10 /HPF (NONE SEEN) H 09/03/21 16:23 Ur Urothelial Cells Cancelled 09/03/21 15:40 Calcium Oxalate Crystal Cancelled 09/03/21 15:40 Uric Acid Crystals Cancelled 09/03/21 15:40 Triple Phos Crystals Cancelled 09/03/21 15:40 Other Crystals Cancelled 09/03/21 15:40 Amorphous Sediment Cancelled 09/03/21 15:40 Glitter Cells Cancelled 09/03/21 15:40 Urine Bacteria <20 /HPF (<20) 09/03/21 16:23 Hyaline Casts Cancelled 09/03/21 15:40 Fine Granular Casts Cancelled 09/03/21 15:40 Coarse Granular Casts Cancelled 09/03/21 15:40 Waxy Casts Cancelled 09/03/21 15:40 RBC Casts Cancelled 09/03/21 15:40 WBC Casts Cancelled 09/03/21 15:40 Urine Mucus Cancelled 09/03/21 15:40 Urine Other Cancelled 09/03/21 15:40 Urine Trichomonas Cancelled 09/03/21 15:40 Urine Yeast Cancelled 09/03/21 15:40 Ur Yeast w Hyphae Cancelled 09/03/21 15:40 Urine Yeast (Budding) Cancelled 09/03/21 15:40 Urine Sperm Cancelled 09/03/21 15:40 Urine Culture Reflexed Not needed 09/03/21 16:23 Urine Total Volume Cancelled 09/03/21 15:40 Urine Total Protein Negative (Negative) 09/03/21 16:23 SARS-CoV-2 Rap RNA(RT-PCR) Negative (NEGATIVE) 09/09/21 14:00 Weight: 135 lb Wound Present: No Closed Surgical Incision Present: No Negative Pressure Wound Therapy Present: No Physician Update: Bed mobility, sit to s tand, transfers are CGA. Walked 12' with CGA, wheelchari 250' with standby assistance. Labs reviewed and are stable. Improving with speech therapy. She does better in the moring with occupational therapy. Summary: Patient's care plan and intermodal customer service goals have been reviewed and revised as necessary. Please see the Rehabilitation Signature page for all necessary sig natures.
[2021-09-15] MEDS: DOCUSATE NA/SENNA CONC 1 TAB PO PRN (19:20)
[2021-09-15] MEDS: ATORVASTATIN 20 MG TAB PO SCH (19:20)
[2021-09-15] MEDS: clonazePAM 0.5 MG TAB PO PRN (19:21)
[2021-09-15] MEDS: TAMSULOSIN 0.4 MG SR CAP PO SCH (19:21)
[2021-09-15] MEDS: GABAPENTIN 300 MG CAP PO SCH (19:21)
[2021-09-15] MEDS: HYDROCODONE/APAP 10/325 TAB PO PRN (21:18)
[2021-09-15] MEDS ORDERED: clonazePAM 0.5 MG TAB PO ONE (21:20)
[2021-09-16] MEDS: carvediloL 12.5 MG TAB PO SCH ×2 (05:12→16:59)
[2021-09-16] MEDS: MEGESTROL 400 MG/10 ML UCUP PO SCH (07:22)
[2021-09-16] MEDS: MAGNESIUM OXIDE 400 MG TAB PO SCH (07:23)
[2021-09-16] MEDS: AMLODIPINE 5 MG TAB PO SCH (07:23)
[2021-09-16] MEDS: levoFLOXacin 750 MG TAB PO SCH (07:24)
[2021-09-16] MEDS: ENSURE ENLIVE 237 ML CAN PO SCH ×3 (07:25→19:13)
[2021-09-16] MEDS: ANORO ELLIPTA IH SCH (07:25)
[2021-09-16] MEDS: TIOTROPIUM 5 SPRAYS/INHALER IH SCH (07:25)
[2021-09-16] MEDS: DOCUSATE NA 50 MG/5 ML UCUP PO SCH (19:02)
[2021-09-16] MEDS: DOCUSATE NA/SENNA CONC 1 TAB PO PRN (19:03)
[2021-09-16] MEDS: TAMSULOSIN 0.4 MG SR CAP PO SCH (19:03)
[2021-09-16] MEDS: ATORVASTATIN 20 MG TAB PO SCH (19:03)
[2021-09-16] MEDS: GABAPENTIN 300 MG CAP PO SCH (19:04)
[2021-09-17] MEDS: carvediloL 12.5 MG TAB PO SCH ×2 (05:07→17:19)
[2021-09-17] MEDS: TIOTROPIUM 5 SPRAYS/INHALER IH SCH (07:14)
[2021-09-17] MEDS: ANORO ELLIPTA IH SCH (07:14)
[2021-09-17] MEDS: MEGESTROL 400 MG/10 ML UCUP PO SCH (07:16)
[2021-09-17] MEDS: DOCUSATE NA 50 MG/5 ML UCUP PO SCH ×2 (07:17→18:47)
[2021-09-17] MEDS: AMLODIPINE 5 MG TAB PO SCH (07:17)
[2021-09-17] MEDS: MAGNESIUM OXIDE 400 MG TAB PO SCH (07:17)
[2021-09-17] MEDS: ENSURE ENLIVE 237 ML CAN PO SCH ×3 (07:19→18:47)
[2021-09-17] MEDS: CYCLOBENZAPRINE 10 MG TAB PO PRN (14:30)
[2021-09-17] MEDS: GABAPENTIN 300 MG CAP PO SCH (18:46)
[2021-09-17] MEDS: ATORVASTATIN 20 MG TAB PO SCH (18:46)
[2021-09-17] MEDS: clonazePAM 1 MG TAB PO PRN (18:47)
[2021-09-17] MEDS: TAMSULOSIN 0.4 MG SR CAP PO SCH (18:47)
[2021-09-18] MEDS: carvediloL 12.5 MG TAB PO SCH ×2 (05:10→17:27)
[2021-09-18] MEDS: MEGESTROL 400 MG/10 ML UCUP PO SCH (07:36)
[2021-09-18] MEDS: DOCUSATE NA 50 MG/5 ML UCUP PO SCH ×2 (07:36→19:11)
[2021-09-18] MEDS: AMLODIPINE 5 MG TAB PO SCH (07:39)
[2021-09-18] MEDS: MAGNESIUM OXIDE 400 MG TAB PO SCH (07:40)
[2021-09-18] MEDS: TIOTROPIUM 5 SPRAYS/INHALER IH SCH (07:40)
[2021-09-18] MEDS: ANORO ELLIPTA IH SCH (07:40)
[2021-09-18] MEDS: ENSURE ENLIVE 237 ML CAN PO SCH ×3 (07:41→19:11)
--- NOTE | 2021-09-18 17:39 | R.PN ---
PROGRESS NOTES ENCOUNTER DATE AND TIME: 09/18/2021 17:36 (CDT) NAME Kenya Peace DATE OF : 1950 DATE OF ADMISSION: 09/01/2021 22:44 (CDT) Traumatic subdural hemorrhage with loss of consciousness of unspecified duration, initial encounter ( S06.5X9A)Acute traumatic subdural subarachnoid hemorrhageCHIEF COMPLAINT: Traumatic subdural hematoma, expressive and receptive aphasia SUBJECTIVE: Pt denied any Shortness of Breath. Pt denied any depression. CBC with diff and BMP are essentially normal. Covid-19 is negative, UA is negative but cultures show 4+ Alpha Strep. TSH, T4 and cortisol are normal. Electrolytes are normal. She is more responsive today . Head CT noted large areas of decreased attenuation involving most of t he left hemisphere. 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 Ambulated 180' with contact guard assistance. Self-propelled wheelchair 250' with standby assistance. VITAL SIGNS Temperature: 97.6 F SBP/DBP: 95 to 108/52 to 57 Pulse: 90 Resp: 16 MEDICATION ALLERGIES: No Known Drug Allergies (NKDA) ENVIRONMENTAL ALLERGIES: - Substance Allergies None Known - Other Allergies None Known NURSING: - Shower allowing shower - Bladder care per protocol - Skin care per protocol PRECAUTIONS: - Aspiration Precaution 1 to 1 supervision with all po intake All meals in the dysphagia dining room No straws Seated at 90 degrees while eating and 30 minutes after meals - Fall Precaution 1 to 1 supervision Bed alarm TABS alarm Wheel chair alarm - R Clavicle NWB R UE ROM as tolerated R UE ACTIVITIES OOB only with supervision THERAPIES: - Dietary and Nutrition Adequate Nutrition. Nutritional Education. Nutritional Supplements. Evaluate and Treat. - Occupational Therapy Cognitive Retraining. Patient needs Occupational Therapy for a daily minimum of 1.5 hours at least 5 out of 7 days, to improve Activities of Daily Living, including: Eating, Grooming, Bathing, Dressing, Toileting, Toilet Transfers, Community Reintegration, Higher functional activities, Adaptive Equipme nt, Splinting, Household Tasks, and Other activities as determined. Visual Perceptual Training. Evalu ate and Treat. Patient/Family Education. ADL Training. Safety Awareness. Eating. Transfer Training. U E Strengthening. - Speech Therapy Cognitive Training. Expressive Language Skills. Memory Strategies. Patient needs Speech Therapy for a daily minimum of 1.5 hours at least 5 out of 7 days, to improve: Swallowing, Cognition, Language Ski lls, and Compensatory Strategies. Receptive Language Skills. Speech Intelligibility Training. Evaluat e and Treat. - Physical Therapy Patient needs Physical Therapy for a daily minimum of 1.5 hours at least 5 out of 7 days, to improve: Mobility, Strengthening, Transfers, Stretching, ROM, Endurance, Ability to manage stairs, Gait, and Balance. Balance Training. Gait Training. Safety Awareness. Transfer Training. Mobility Training. Pat ient/Family Education. LE Strengthening. PHYSICAL EXAM - Gen Alert and awake Lying in bed No apparent distress Oriented to: person, time, and place - Skin No skin breakdown. No abnormalities - Eyes No abnormalities - ENMT No abnormalities - Neck No abnormalities - CVS RRR - Chest No abnormalities - Resp No wheezing - Abd Soft - GI Non distended Deferred - No abnormalities - Ext No significant edema - MSK 4+/5 weakness in both lower extremities. - Neuro No focal deficits - Psych Mild confusion about situation. No psyhchosis. ASSESSMENT: Pt. is a 70 yo Right-handed female.On 08/26/2021 she was admitted to [facility] with diagnosis Traumatic subdural hemorrhage with loss of consciousness of unspecified duration, initial encounter ( S06.5X9A).Her impairment category is Brain Dysfunction 02 - Closed Injury (.).Pre-morbidly, Pt. was independent/mod-I in Locomotion, Safety Awareness, Social Cognition, Transfers Control, and Sherice ce; and she had good Sphincter Control, Self-Care, Communication, and Endurance.Currently, she has de ficits of Locomotion, Safety Awareness, Social Cognition, Balance, Transfers Control, Sphincter Contr ol, Self-Care, Endurance, and Communication.Pt. is now referred to [facility] for acute in-patient rehabilitation in order to maximize patient's functional independence in activit ies of daily living, strength, ROM, and mobility.- Rehab Goal Patient has realistic goal of being discharged at assistance level 5-sup to reside at Home with Pt s elf. MDM/PLAN: - Physical Therapy Gait dysfunction - to improve, our physical therapists will perform initial evaluation of pt's statu s upon admission and devise an individualized program for Gait Training, and Wheel Chair mobility Inability to transfer - to improve, our physical therapists will perform initial evaluation of pt's status upon admission and devise an individualized program for Bed mobility Need for home safety evaluation - to improve, our physical therapists will perform initial evaluatio n of pt's status upon admission and devise an individualized program for Home Evaluation Need in caregiver upon discharge - to improve, our physical therapists will perform initial evaluati on of pt's status upon admission and devise an individualized program for Caregiver Training New precaution - to improve, our physical therapists will perform initial evaluation of pt's status upon admission and devise an individualized program for Patient precaution education Edema - to improve, our physical therapists will perform initial evaluation of pt's status upon admi ssion and devise an individualized program for Elevation Training, and Lymphedema Therapy Poor balance - to improve, our physical therapists will perform initial evaluation of pt's status up on admission and devise an individualized program for Balance Training Poor endurance - to improve, our physical therapists will perform initial evaluation of pt's status upon admission and devise an individualized program for Endurance Training Weakness - to improve, our physical therapists will perform initial evaluation of pt's status upon a dmission and devise an individualized program for Aquatic Therapy, Neuromuscular Reeducation, and Str engthening Achieving independence - to improve, our physical therapists will perform initial evaluation of pt's status upon admission and devise an individualized program for Community Reintegration Activities - Occupational Therapy ADL deficits - to improve, our occupation therapists will perform initial evaluation of pt's status upon admission and devise an individualized program for Bathing, Bed mobility, Community Reintegratio n, Cooking, Dressing, Eating, Fine Motor Skills, Grooming, Homemaking, Kitchen Mobility, Laundry, Pat ient Education, Safety Awareness, Splinting - Positioning, Transfers(Toilet, Tub, Shower), and Wheel Chair Management Cognitive deficits - to improve, our occupation therapists will perform initial evaluation of pt's s tatus upon admission and devise an individualized program for Cognition - orientation Need for care aide - to improve, our occupation therapists will perform initial evaluation of pt's status upon admission and devise an individualized program for Caregiver Training Weakness - to improve, our occupation therapists will perform initial evaluation of pt's status upon admission and devise an individualized program for Aquatic Therapy, Balance, Endurance, UE ROM, and UE strengthening - Other See attached MAR (Medication Administration Record) - Diet Type Continue Regular - Diet - Liquid Texture Continue Regular - Tube Feed Continue N/A - Bladder care per protocol - Aspiration Precaution 1 to 1 supervision with all po intake All meals in the dysphagia dining room No straws Seated at 90 degrees while eating and 30 minutes after meals - Fall Precaution 1 to 1 supervision Bed alarm TABS alarm Wheel chair alarm - Skin care per protocol - Shower allowing shower - R Clavicle NWB R UE ROM as tolerated R UE FUNCTIONAL STATUS: UPDATED AT WEEKLY TEAM CONFERENCE - Bladder Same accident frequency: 7-Ind - No accidents in the past 7 days - Bowel Same accident frequency: 7-Ind - No accidents in the past 7 days - Walking Same score based on distance walked: 0(N/A) Same score based on distance walked: 2(50-149ft) - Wheelchair Same score based on distance traveled: 0(N/A) FUNCTIONAL STATUS: - Self-Care A. Eating Torres B. Grooming Torres C. Bathing Gabriella D. Dressing - Upper Gabriella E. Dressing - Lower modA F. Toileting Gabriella - Sphincter Control G. Bladder control Torres H. Bowel control Torres - Transfers Control I. Bed/Chair/Wheelchair sup J. Toilet sup K. Tub/Shower Gabriella - Locomotion L. Walk/Wheelchair (B) Gabriella M. Stairs maxA - Communication N. Comprehension (B) modA O. Expression (B) modA - Social Cognition P. Social Interaction Gabriella Q. Problem Solving sup R. Memory modA - Endurance Good - Balance Good - Safety Awareness Fair QI SCORES: - Self-Care A. Eating 03-Partial/moderate assistance B. Oral hygiene 02-Substantial/maximal assistance C. Toileting hygiene 02-Substantial/maximal assistance E. Shower/bathe self 02-Substantial/maximal assistance F. Upper body dressing 03-Partial/moderate assistance G. Lower body dressing 02-Substantial/maximal assistance H. Putting on/taking off footwear 88-Not attempted due to medical condition or safety concerns - Mobility A. Roll left and right 03-Partial/moderate assistance B. Sit to lying 03-Partial/moderate assistance C. Lying to sitting on side of bed 03-Partial/moderate assistance D. Sit to stand 02-Substantial/maximal assistance E. Chair/[id number] transfer 03-Partial/moderate assistance F. Toilet transfer 02-Substantial/maximal assistance G. Car transfer 88-Not attempted due to medical condition or safety concerns I. Walk 10 feet 03-Partial/moderate assistance J. Walk 50 feet with two turns 03-Partial/moderate assistance K. Walk 150 feet 88-Not attempted due to medical condition or safety concerns L. Walking 10 feet on uneven surfaces 88-Not attempted due to medical condition or safety concerns M. 1 step (curb) 88-Not attempted due to medical condition or safety concerns N. 4 steps 88-Not attempted due to medical condition or safety concerns O. 12 steps 88-Not attempted due to medical condition or safety concerns P. Picking up object 88-Not attempted due to medical condition or safety concerns R. Wheel 50 feet with two turns 88-Not attempted due to medical condition or safety concerns S. Wheel 150 feet 88-Not attempted due to medical condition or safety concerns - Bladder and Bowel Bladder continence Bowel continence - Endurance Fair - Balance Poor - Safety Awareness Fair [facility] DEFICITS: Self-Care, Mobility, Endurance, Balance, and Safety Awareness SIGNATURE PANEL: (CDT)
[2021-09-18] MEDS: clonazePAM 1 MG TAB PO PRN (19:11)
[2021-09-18] MEDS: TAMSULOSIN 0.4 MG SR CAP PO SCH (19:11)
[2021-09-18] MEDS: DOCUSATE NA/SENNA CONC 1 TAB PO PRN (19:11)
[2021-09-18] MEDS: ATORVASTATIN 20 MG TAB PO SCH (19:11)
[2021-09-18] MEDS: GABAPENTIN 300 MG CAP PO SCH (19:12)
[2021-09-19] MEDS: carvediloL 12.5 MG TAB PO SCH ×2 (05:21→17:52)
[2021-09-19] MEDS: DOCUSATE NA 50 MG/5 ML UCUP PO SCH ×2 (07:51→18:52)
[2021-09-19] MEDS: MEGESTROL 400 MG/10 ML UCUP PO SCH (07:52)
[2021-09-19] MEDS: MAGNESIUM OXIDE 400 MG TAB PO SCH (07:53)
[2021-09-19] MEDS: TIOTROPIUM 5 SPRAYS/INHALER IH SCH (09:58)
[2021-09-19] MEDS: ANORO ELLIPTA IH SCH (09:58)
[2021-09-19] MEDS: ENSURE ENLIVE 237 ML CAN PO SCH ×3 (10:08→18:53)
[2021-09-19] MEDS: AMLODIPINE 5 MG TAB PO SCH (10:09)
[2021-09-19] MEDS: NICOTINE 14 MG/PAT TD SCH (15:33)
--- NOTE | 2021-09-19 18:35 | R.PN ---
PROGRESS NOTES ENCOUNTER DATE AND TIME: 09/19/2021 18:32 (CDT) NAME Kenya Peace DATE OF : 1950 DATE OF ADMISSION: 09/01/2021 22:44 (CDT) Traumatic subdural hemorrhage with loss of consciousness of unspecified duration, initial encounter ( S06.5X9A)Acute traumatic subdural subarachnoid hemorrhageCHIEF COMPLAINT: Traumatic subdural hematoma, expressive and receptive aphasia SUBJECTIVE: Pt denied any Shortness of Breath. Pt denied any depression. CBC with diff and BMP are essentially normal. Covid-19 is negative, UA is negative but cultures show 4+ Alpha Strep. TSH, T4 and cortisol are normal. Electrolytes are normal. She is more responsive today . Head CT noted large areas of decreased attenuation involving most of t he left hemisphere. 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 Ambulated 400' with contact guard assistance. Self-propelled wheelchair 250' with standby assistance. VITAL SIGNS Temperature: 97.4 F SBP/DBP: 129/83 Pulse: 89 Resp: 16 MEDICATION ALLERGIES: No Known Drug Allergies (NKDA) ENVIRONMENTAL ALLERGIES: - Substance Allergies None Known - Other Allergies None Known NURSING: - Shower allowing shower - Bladder care per protocol - Skin care per protocol PRECAUTIONS: - Aspiration Precaution 1 to 1 supervision with all po intake All meals in the dysphagia dining room No straws Seated at 90 degrees while eating and 30 minutes after meals - Fall Precaution 1 to 1 supervision Bed alarm TABS alarm Wheel chair alarm - R Clavicle NWB R UE ROM as tolerated R UE ACTIVITIES OOB only with supervision THERAPIES: - Dietary and Nutrition Adequate Nutrition. Nutritional Education. Nutritional Supplements. Evaluate and Treat. - Occupational Therapy Cognitive Retraining. Patient needs Occupational Therapy for a daily minimum of 1.5 hours at least 5 out of 7 days, to improve Activities of Daily Living, including: Eating, Grooming, Bathing, Dressing, Toileting, Toilet Transfers, Community Reintegration, Higher functional activities, Adaptive Equipme nt, Splinting, Household Tasks, and Other activities as determined. Visual Perceptual Training. Evalu ate and Treat. Patient/Family Education. ADL Training. Safety Awareness. Eating. Transfer Training. U E Strengthening. - Speech Therapy Cognitive Training. Expressive Language Skills. Memory Strategies. Patient needs Speech Therapy for a daily minimum of 1.5 hours at least 5 out of 7 days, to improve: Swallowing, Cognition, Language Ski lls, and Compensatory Strategies. Receptive Language Skills. Speech Intelligibility Training. Evaluat e and Treat. - Physical Therapy Patient needs Physical Therapy for a daily minimum of 1.5 hours at least 5 out of 7 days, to improve: Mobility, Strengthening, Transfers, Stretching, ROM, Endurance, Ability to manage stairs, Gait, and Balance. Balance Training. Gait Training. Safety Awareness. Transfer Training. Mobility Training. Pat ient/Family Education. LE Strengthening. PHYSICAL EXAM - Gen Alert and awake Lying in bed No apparent distress Oriented to: person, time, and place - Skin No skin breakdown. No abnormalities - Eyes No abnormalities - ENMT No abnormalities - Neck No abnormalities - CVS RRR - Chest No abnormalities - Resp No wheezing - Abd Soft - GI Non distended Deferred - No abnormalities - Ext No significant edema - MSK 4+/5 weakness in both lower extremities. - Neuro No focal deficits - Psych Mild confusion about situation. No psyhchosis. ASSESSMENT: Pt. is a 70 yo Right-handed female.On 08/26/2021 she was admitted to [facility] with diagnosis Traumatic subdural hemorrhage with loss of consciousness of unspecified duration, initial encounter ( S06.5X9A).Her impairment category is Brain Dysfunction 02 - Closed Injury (05.16).Pre-morbidly, Pt. was independent/mod-I in Locomotion, Safety Awareness, Social Cognition, Transfers Control, and Sherice ce; and she had good Sphincter Control, Self-Care, Communication, and Endurance.Currently, she has de ficits of Locomotion, Safety Awareness, Social Cognition, Balance, Transfers Control, Sphincter Contr ol, Self-Care, Endurance, and Communication.Pt. is now referred to [facility] for acute in-patient rehabilitation in order to maximize patient's functional independence in activit ies of daily living, strength, ROM, and mobility.- Rehab Goal Patient has realistic goal of being discharged at assistance level 5-sup to reside at Home with Pt s elf. MDM/PLAN: - Physical Therapy Gait dysfunction - to improve, our physical therapists will perform initial evaluation of pt's statu s upon admission and devise an individualized program for Gait Training, and Wheel Chair mobility Inability to transfer - to improve, our physical therapists will perform initial evaluation of pt's status upon admission and devise an individualized program for Bed mobility Need for home safety evaluation - to improve, our physical therapists will perform initial evaluatio n of pt's status upon admission and devise an individualized program for Home Evaluation Need in caregiver upon discharge - to improve, our physical therapists will perform initial evaluati on of pt's status upon admission and devise an individualized program for Caregiver Training New precaution - to improve, our physical therapists will perform initial evaluation of pt's status upon admission and devise an individualized program for Patient precaution education Edema - to improve, our physical therapists will perform initial evaluation of pt's status upon admi ssion and devise an individualized program for Elevation Training, and Lymphedema Therapy Poor balance - to improve, our physical therapists will perform initial evaluation of pt's status up on admission and devise an individualized program for Balance Training Poor endurance - to improve, our physical therapists will perform initial evaluation of pt's status upon admission and devise an individualized program for Endurance Training Weakness - to improve, our physical therapists will perform initial evaluation of pt's status upon a dmission and devise an individualized program for Aquatic Therapy, Neuromuscular Reeducation, and Str engthening Achieving independence - to improve, our physical therapists will perform initial evaluation of pt's status upon admission and devise an individualized program for Community Reintegration Activities - Occupational Therapy ADL deficits - to improve, our occupation therapists will perform initial evaluation of pt's status upon admission and devise an individualized program for Bathing, Bed mobility, Community Reintegratio n, Cooking, Dressing, Eating, Fine Motor Skills, Grooming, Homemaking, Kitchen Mobility, Laundry, Pat ient Education, Safety Awareness, Splinting - Positioning, Transfers(Toilet, Tub, Shower), and Wheel Chair Management Cognitive deficits - to improve, our occupation therapists will perform initial evaluation of pt's s tatus upon admission and devise an individualized program for Cognition - orientation Need for family member caretaker - to improve, our occupation therapists will perform initial evaluation of pt's status upon admission and devise an individualized program for Caregiver Training Weakness - to improve, our occupation therapists will perform initial evaluation of pt's status upon admission and devise an individualized program for Aquatic Therapy, Balance, Endurance, UE ROM, and UE strengthening - Other See attached MAR (Medication Administration Record) - Diet Type Continue Regular - Diet - Liquid Texture Continue Regular - Tube Feed Continue N/A - Bladder care per protocol - Aspiration Precaution 1 to 1 supervision with all po intake All meals in the dysphagia dining room No straws Seated at 90 degrees while eating and 30 minutes after meals - Fall Precaution 1 to 1 supervision Bed alarm TABS alarm Wheel chair alarm - Skin care per protocol - Shower allowing shower - R Clavicle NWB R UE ROM as tolerated R UE FUNCTIONAL STATUS: UPDATED AT WEEKLY TEAM CONFERENCE - Bladder Same accident frequency: 7-Ind - No accidents in the past 7 days - Bowel Same accident frequency: 7-Ind - No accidents in the past 7 days - Walking Same score based on distance walked: 0(N/A) Same score based on distance walked: 2(50-149ft) - Wheelchair Same score based on distance traveled: 0(N/A) FUNCTIONAL STATUS: - Self-Care A. Eating Torres B. Grooming Torres C. Bathing Gabriella D. Dressing - Upper Gabriella E. Dressing - Lower modA F. Toileting Gabriella - Sphincter Control G. Bladder control Torres H. Bowel control Torres - Transfers Control I. Bed/Chair/Wheelchair sup J. Toilet sup K. Tub/Shower Gabriella - Locomotion L. Walk/Wheelchair (B) Gabriella M. Stairs maxA - Communication N. Comprehension (B) modA O. Expression (B) modA - Social Cognition P. Social Interaction Gabriella Q. Problem Solving sup R. Memory modA - Endurance Good - Balance Good - Safety Awareness Fair QI SCORES: - Self-Care A. Eating 03-Partial/moderate assistance B. Oral hygiene 02-Substantial/maximal assistance C. Toileting hygiene 02-Substantial/maximal assistance E. Shower/bathe self 02-Substantial/maximal assistance F. Upper body dressing 03-Partial/moderate assistance G. Lower body dressing 02-Substantial/maximal assistance H. Putting on/taking off footwear 88-Not attempted due to medical condition or safety concerns - Mobility A. Roll left and right 03-Partial/moderate assistance B. Sit to lying 03-Partial/moderate assistance C. Lying to sitting on side of bed 03-Partial/moderate assistance D. Sit to stand 02-Substantial/maximal assistance E. Chair/[id number] transfer 03-Partial/moderate assistance F. Toilet transfer 02-Substantial/maximal assistance G. Car transfer 88-Not attempted due to medical condition or safety concerns I. Walk 10 feet 03-Partial/moderate assistance J. Walk 50 feet with two turns 03-Partial/moderate assistance K. Walk 150 feet 88-Not attempted due to medical condition or safety concerns L. Walking 10 feet on uneven surfaces 88-Not attempted due to medical condition or safety concerns M. 1 step (curb) 88-Not attempted due to medical condition or safety concerns N. 4 steps 88-Not attempted due to medical condition or safety concerns O. 12 steps 88-Not attempted due to medical condition or safety concerns P. Picking up object 88-Not attempted due to medical condition or safety concerns R. Wheel 50 feet with two turns 88-Not attempted due to medical condition or safety concerns S. Wheel 150 feet 88-Not attempted due to medical condition or safety concerns - Bladder and Bowel Bladder continence Bowel continence - Endurance Fair - Balance Poor - Safety Awareness Fair [facility]RENT [facility]. DEFICITS: Self-Care, Mobility, Endurance, Balance, and Safety Awareness SIGNATURE PANEL: (CDT)
[2021-09-19] MEDS: clonazePAM 1 MG TAB PO PRN (18:52)
[2021-09-19] MEDS: ATORVASTATIN 20 MG TAB PO SCH (20:20)
[2021-09-19] MEDS: DOCUSATE NA/SENNA CONC 1 TAB PO PRN (20:20)
[2021-09-19] MEDS: GABAPENTIN 300 MG CAP PO SCH (20:20)
[2021-09-19] MEDS: TAMSULOSIN 0.4 MG SR CAP PO SCH (20:20)
[2021-09-20] MEDS: carvediloL 12.5 MG TAB PO SCH (05:04)
[2021-09-20] MEDS: NICOTINE 14 MG/PAT TD SCH (06:33)
[2021-09-20] MEDS: TIOTROPIUM 5 SPRAYS/INHALER IH SCH (07:10)
[2021-09-20] MEDS: ANORO ELLIPTA IH SCH (07:11)
[2021-09-20] MEDS: MEGESTROL 400 MG/10 ML UCUP PO SCH (07:12)
[2021-09-20] MEDS: DOCUSATE NA 50 MG/5 ML UCUP PO SCH (07:12)
[2021-09-20] MEDS: AMLODIPINE 5 MG TAB PO SCH (07:13)
[2021-09-20] MEDS: MAGNESIUM OXIDE 400 MG TAB PO SCH (07:14)
[2021-09-20 07:15] VITALS: BP 100/58
[2021-09-20] MEDS: ENSURE ENLIVE 237 ML CAN PO SCH ×2 (07:15→12:25)
[2021-09-20 07:55] VITALS: TEMP 97.4
--- NOTE | 2021-09-22 17:53 | R.DS ---
DISCHARGE SUMMARY FACILITY [facility] MR# [id number] NAME Kenya Peace ADDRESS [address]IP [address] PHONE ( DATE OF 1950 AGE 70 SSN# [id number] GENDER Female MARITAL STATUS ENCOUNTER PHYSICIAN Dr. Kirk Kinsey M.D. REFERRING DOCTOR JAVIER BALL MD REFERRING FACILITY [facility] DISCHARGE DIAGNOSIS: - Brain Dysfunction 02 - Closed Injury (02.) Traumatic subdural hemorrhage with loss of consciousness of unspecified duration, initial encounter ( S06.5X9A). Acute traumatic subdural subarachnoid hemorrhage. DISCHARGE COMORBIDITIES: - Non-Tiered Dysphagia, unspecified (R13.10) Fracture of unspecified part of right clavicle (S42.001) Disorientation, unspecified (R41.0) Essential (primary) hypertension (I10) Hyperlipidemia, unspecified (E78.5) Coronary Artery Disease Traumatic cerebral edema (S06.1) buckle sacral fx DATE OF ADMISSION 09/01/2021 22:44 (CDT) MEDICATION ALLERGIES: No Known Drug Allergies (NKDA) ENVIRONMENTAL ALLERGIES: - Substance Allergies None Known - Other Allergies None Known DISCHARGE MEDICATIONS: Other- ContinueSee attached MAR (Medication Administration Record). NURSING: - Shower allowing shower - Bladder care per protocol - Skin care per protocol PRECAUTIONS: - Aspiration Precaution 1 to 1 supervision with all po intake All meals in the dysphagia dining room No straws Seated at 90 degrees while eating and 30 minutes after meals - Fall Precaution 1 to 1 supervision Bed alarm TABS alarm Wheel chair alarm - R Clavicle NWB R UE ROM as tolerated R UE ACTIVITIES OOB only with supervision THERAPIES: - Dietary and Nutrition Adequate Nutrition Nutritional Education Nutritional Supplements Evaluate and Treat - Occupational Therapy Cognitive Retraining Patient needs Occupational Therapy for a daily minimum of 1.5 hours at least 5 out of 7 days, to impr ove Activities of Daily Living, including: Eating, Grooming, Bathing, Dressing, Toileting, Toilet Tra nsfers, Community Reintegration, Higher functional activities, Adaptive Equipment, Splinting, Househo ld Tasks, and Other activities as determined Visual Perceptual Training Evaluate and Treat Patient/Family Education ADL Training Safety Awareness Eating Transfer Training UE Strengthening - Speech Therapy Cognitive Training Expressive Language Skills Memory Strategies Patient needs Speech Therapy for a daily minimum of 1.5 hours at least 5 out of 7 days, to improve: S wallowing, Cognition, Language Skills, and Compensatory Strategies Receptive Language Skills Speech Intelligibility Training Evaluate and Treat - Physical Therapy Patient needs Physical Therapy for a daily minimum of 1.5 hours at least 5 out of 7 days, to improve: Mobility, Strengthening, Transfers, Stretching, ROM, Endurance, Ability to manage stairs, Gait, and Balance Balance Training Gait Training Safety Awareness Transfer Training Mobility Training Patient/Family Education LE Strengthening HISTORY OF PRESENT ILLNESS: Pt. is a 70 yo Right-handed female.On 08/26/2021 she was admitted to [facility] with diagnosis Traumatic subdural hemorrhage with loss of consciousness of unspecified duration, initial encounter ( S06.5X9A).Her impairment category is Brain Dysfunction 02 - Closed Injury (05.16).Pre-morbidly, Pt. was independent/mod-I in Locomotion, Safety Awareness, Social Cognition, Transfers Control, and Sherice ce; and she had good Sphincter Control, Self-Care, Communication, and Endurance.Currently, she has de ficits of Locomotion, Safety Awareness, Social Cognition, Balance, Transfers Control, Sphincter Contr ol, Self-Care, Endurance, and Communication.Pt. is now referred to [facility] for acute in-patient rehabilitation in order to maximize patient's functional independence in activit ies of daily living, strength, ROM, and mobility.- Rehab Goal Patient has realistic goal of being discharged at assistance level 5-sup to reside at Home with Pt s elf. ASPIRATION PRECAUTION: On 09/01/2021 the following precautions were added for the patient: Aspiration Precaution - All meals in the dysphagia dining room, Aspiration Precaution - No straws, Aspiration Precaution - Seated at 9 0 degrees while eating and 30 minutes after meals, and Aspiration Precaution - 1 to 1 supervision wit h all po intake. On 09/04/2021 the following precautions were added for the patient: Aspiration Precaution - 1 to 1 s upervision with all po intake, Aspiration Precaution - All meals in the dysphagia dining room, Aspir ation Precaution - No straws, and Aspiration Precaution - Seated at 90 degrees while eating and 30 minutes after meals. The following precautions were removed for the patient: Aspiration Precaution - 1 to 1 supervision wi th all po intake, Aspiration Precaution - All meals in the dysphagia dining room, Aspiration Precauti on - No straws, Aspiration Precaution - Seated at 90 degrees while eating and 30 minutes after meals, Aspiration Precaution - 1 to 1 supervision with all po intake, Aspiration Precaution - All meals i n the dysphagia dining room, Aspiration Precaution - No straws, and Aspiration Precaution - Seated at 90 degrees while eating and 30 minutes after meals. On 09/01/2021 the following precautions were added for the patient: Fall Precaution - Wheel chair ala rm, Fall Precaution - TABS alarm, Fall Precaution - Bed alarm, and Fall Precaution - 1 to 1 supervisi on. On 09/04/2021 the following precautions were added for the patient: Fall Precaution - 1 to 1 supervi bautista, Fall Precaution - Bed alarm, Fall Precaution - TABS alarm, and Fall Precaution - Wheel chair alarm. On 09/01/2021 the following precautions were removed for the patient: Fall Precaution - 1 to 1 superv ision, Fall Precaution - Bed alarm, Fall Precaution - TABS alarm, Fall Precaution - Wheel chair alarm , Fall Precaution - 1 to 1 supervision, Fall Precaution - Bed alarm, Fall Precaution - TABS alarm, and Fall Precaution - Wheel chair alarm. The following precautions were added for the patient: R Clavicle - NWB R UE, and R Clavicle - ROM as tolerated R UE. On 09/02/2021 the following precautions were added for the patient: R Clavicle - NWB R UE, and R Cla vicle - ROM as tolerated R UE. On 09/04/2021 the following precautions were removed for the patient: R Clavicle - NWB R UE, and R C lavicle - ROM as tolerated R UE. On 09/05/2021 the following precautions were added for the patient: R Clavicle - NWB R UE, and R Cla vicle - ROM as tolerated R UE. The following precautions were removed for the patient: R Clavicle - NWB R UE, R Clavicle - ROM as to lerated R UE, R Clavicle - NWB R UE, and R Clavicle - ROM as tolerated R UE. DIET - LIQUID TEXTURE: On 09/01/2021 Pt was upgraded to Regular Diet - Liquid Texture. DIET TYPE: On 09/01/2021 Pt was upgraded to Regular Diet Type. FALL PRECAUTION: R CLAVICLE: TUBE FEED: On 09/01/2021 Pt was changed to N/A Tube Feed. DISCHARGE PHYSICAL EXAM - Gen Alert and awake Lying in bed No apparent distress Oriented to: person, time, and place - Skin No skin breakdown. No abnormalities - Eyes No abnormalities - ENMT No abnormalities - Neck No abnormalities - CVS RRR - Chest No abnormalities - Resp No wheezing - Abd Soft - GI Non distended Deferred - No abnormalities - Ext No significant edema - MSK 4+/5 weakness in both lower extremities. - Neuro No focal deficits - Psych Mild confusion about situation. No psyhchosis. FUNCTIONAL STATUS: - Self-Care A. Eating 6-Torres B. Grooming 6-Torres C. Bathing 6-Torres D. Dressing - Upper 6-Torres E. Dressing - Lower 6-Torres F. Toileting 6-Torres - Sphincter Control G. Bladder control 6-Torres H. Bowel control 6-Torres - Transfers Control I. Bed/Chair/Wheelchair 6-Torres J. Toilet 6-Torres K. Tub/Shower 6-Torres - Locomotion L. Walk/Wheelchair (B) 6-Torres M. Stairs 5-sup - Communication N. Comprehension (B) 3-modA O. Expression (B) 3-modA - Social Cognition P. Social Interaction 4-Gabriella Q. Problem Solving 5-sup R. Memory 3-modA - Endurance Good - Balance Good - Safety Awareness Good QI SCORES: - Self-Care A. Eating 03-Partial/moderate assistance B. Oral hygiene 02-Substantial/maximal assistance C. Toileting hygiene 02-Substantial/maximal assistance E. Shower/bathe self 02-Substantial/maximal assistance F. Upper body dressing 03-Partial/moderate assistance G. Lower body dressing 02-Substantial/maximal assistance H. Putting on/taking off footwear 88-Not attempted due to medical condition or safety concerns - Mobility A. Roll left and right 03-Partial/moderate assistance B. Sit to lying 03-Partial/moderate assistance C. Lying to sitting on side of bed 03-Partial/moderate assistance D. Sit to stand 02-Substantial/maximal assistance E. Chair/yjy-qd-dxely transfer 03-Partial/moderate assistance F. Toilet transfer 02-Substantial/maximal assistance G. Car transfer 88-Not attempted due to medical condition or safety concerns I. Walk 10 feet 03-Partial/moderate assistance J. Walk 50 feet with two turns 03-Partial/moderate assistance K. Walk 150 feet 88-Not attempted due to medical condition or safety concerns L. Walking 10 feet on uneven surfaces 88-Not attempted due to medical condition or safety concerns M. 1 step (curb) 88-Not attempted due to medical condition or safety concerns N. 4 steps 88-Not attempted due to medical condition or safety concerns O. 12 steps 88-Not attempted due to medical condition or safety concerns P. Picking up object 88-Not attempted due to medical condition or safety concerns R. Wheel 50 feet with two turns 88-Not attempted due to medical condition or safety concerns S. Wheel 150 feet 88-Not attempted due to medical condition or safety concerns - Bladder and Bowel Bladder continence Bowel continence - Endurance Fair - Balance Poor - Safety Awareness Fair DISCHARGE INSTRUCTIONS: - N/A Mobilization. DISCHARGE PLAN, FOLLOW UP CARE PROVISIONS: - Estimated Length of Stay (days) 17. - Consensus on plan Discharge plan has been discussed with primary caregiver. Patient/Family is in agreement with the regina n. Primary caregiver is in agreement with the plan. - Patient/Family Goals Return home with assistance. - Planned Living Setting Upon Discharge Home, to live alone. Transitional Living. Primary caregiver: Pt self. SIGNATURE PANEL: (CDT)
== END 2021-09-20 15:40 | disposition home health service (06) | DRG 949 ==
LOC: 5TH 22:44
PROVIDERS: ADMIT Psychiatry & Neurology Neurology with Special Qualifications in Child Neurology; ATTEND Psychiatry & Neurology Neurology with Special Qualifications in Child Neurology
DX: S06.5X9D Traumatic subdural hemorrhage with loss of consciousness of unspecified duration, subsequent encounter (principal); R47.01 Aphasia; I10 Essential (primary) hypertension; E78.5 Hyperlipidemia, unspecified; I25.10 Atherosclerotic heart disease of native coronary artery without angina pectoris; R13.10 Dysphagia, unspecified; S06.5X9S Traumatic subdural hemorrhage with loss of consciousness of unspecified duration, sequela; Z20.822 Contact with and (suspected) exposure to COVID-19
CPT/HCPCS: 36415; 70450; 71045; 80048; 81003; 81015; 82040; 82533; 83735; 84134; 84439; 84443; 85025; 87077; 87086; 87088; 87186; 92507; 92523; 92526; 97110; 97116; 97161; 97166; 97530; 97542; J7030; U0003